=== PATIENT | male | born 1970 | race African-American/Black ===

== ENCOUNTER 2016-07-12 09:11 | Inpatient (IN) | payer OTHER ==
[~2016-07-12] VITALS: Ht 172.7 cm; Wt 78.5 kg
[2016-07-12] VITALS (13 sets, daily range): BP systolic 162–207; BP diastolic 72–88; PULSE 75–96; RESP 16–22; TEMP 97.5–99.8; O2SAT 95–99
[~2016-07-12 09:11] MED LIST: AMLO10 PO; ASPI81CH CHEW; HYDR25TA5 PO; LEVA750T PO; LIPI80TA PO; LISI-515 PO; METO25TA6 PO; OXYC1TAB63 PO; SENN1TAB PO
[2016-07-12] MEDS ORDERED: SODIUM CHLOR 0.9% 1000 ML INJ 1,000 ML IV SCH (09:35)
--- NOTE | 2016-07-12 09:42 | PD ---
HPI Chief Complaint: Abdominal Pain Time Seen by Provider: 09:35 Travel History International Travel<30 days: No Contact w/Intl Traveler<30days: No Traveled to known affect area: No History of Present Illness HPI This is a 46-year-old male who presents to the emergency department with abdominal pain on the right side, constant, severe, starting abruptly last evening, keeping him from sleeping overnight. Patient was recently hospitalized for left-sided rib pain. He had an elevated troponin to .17. He had a CTA of the chest demonstrating an ascending thoracic aortic aneurysm and at that time blood pressure control was recommended and the patient is scheduled to follow-up with Dr. Pickett as an outpatient on July 21. Patient reports that his pain is worse when he tries to use the bathroom, when he moves , and when he urinates. He denies any frequency, urgency, diarrhea, fevers or chills but does say he's had some constipation. He has had an appendectomy in the past. He denies any vomiting. PFSH Past Medical History Arthritis: No Anxiety: No Depression: No Heart Rhythm Problems: No Cancer: No Cardiovascular Problems: Yes High Cholesterol: No Chest Pain: Yes Congestive Heart Failure: No Cerebrovascular Accident: Yes (2006) Diabetes: No Diminished Hearing: No Endocrine: No Genitourinary: No Hypertension: Yes Immune Disorder: No Musculoskeletal: Yes Neurologic: No Psychiatric: No Reproductive: No Respiratory: No Thyroid Disease: No Influenza Vaccination: Yes Past Surgical History Abdominal Surgery: Yes (appendectomy) Appendectomy: Yes (1985) Cardiac Surgery: No Ear Surgery: No Endocrine Surgery: No Eye Surgery: No Genitourinary Surgery: No Gynecologic Surgery: No Oral Surgery: No Thoracic Surgery: No Other Surgery: Yes Social History Alcohol Use: Yes (QUIT YEARS AGO) Tobacco Use: No (QUIT) Substance Use: No Allergies-Medications (Allergen,Severity, Reaction): Coded Allergies: No Known Allergies (Verified , 07/12/16) Reported Meds & Prescriptions Reported Meds & Active Scripts Active Metoprolol Succinate ER 24 HR (Metoprolol Succinate) 25 Mg Tab 25 Mg PO DAILY Levaquin (Levofloxacin) 750 Mg Tab 750 Mg PO DAILY Senna Plus 8.6-50 mg (Sennosides-Docusate Sodium) 1 Tab Tab 2 Tab PO BID Oxycodone-Acetaminophen 5-325 mg Tab 1 Tab PO Q4H PRN Lipitor (Atorvastatin Calcium) 80 Mg Tab 80 Mg PO HS Lisinopril 20 Mg Tab 40 Mg PO DAILY Hydrochlorothiazide 25 Mg Tab 25 Mg PO DAILY Norvasc (Amlodipine Besylate) 10 Mg Tab 10 Mg PO DAILY Reported Aspirin 81 Mg Chew 81 Mg CHEW DAILY Review of Systems Except as stated in HPI: all other systems reviewed are Neg Physical Exam Narrative GENERAL: Uncomfortable appearing. SKIN: Warm and dry. HEAD: Atraumatic. Normocephalic. EYES: Pupils equal and round. No injection or drainage. ENT: Moist mucous membranes NECK: Trachea midline. CARDIOVASCULAR: Regular rate and rhythm. No murmur appreciated. Bounding bilateral radial and DP pulses, extremities are warm and well perfused. RESPIRATORY: Clear to auscultation. Breath sounds equal bilaterally. GASTROINTESTINAL: Abdomen soft, tender to palpation with guarding over the right upper and right lower quadrants, left upper quadrant is soft MUSCULOSKELETAL: No obvious deformities. NEUROLOGICAL: Awake and alert. No obvious cranial nerve deficits. Moving all extremities. PSYCHIATRIC: Appropriate mood and affect; insight and judgment normal. Data Data Last Documented VS Vital Signs Date Time Temp Pulse Resp B/P Pulse Ox O2 Delivery O2 Flow Rate FiO2 07/12/16 09:47 86 18 162/72 96 07/12/16 09:24 98.4 Orders Electrocardiogram (07/12/16 ) Complete Blood Count With Diff (07/12/16 09:35) Comprehensive Metabolic Panel (07/12/16 09:35) Lipase (07/12/16 09:35) Lactic Acid (07/12/16 09:35) Prothrombin Time / Inr (Pt) (07/12/16 09:35) Act Partial Throm Time (Ptt) (07/12/16 09:35) Urinalysis - C+S If Indicated (07/12/16 09:35) Iv Access Insert/Monitor (07/12/16 09:35) Ecg Monitoring (07/12/16 09:35) Oximetry (07/12/16 09:35) Sodium Chlor 0.9% 1000 Ml Inj (Ns 1000 M (07/12/16 09:35) Sodium Chloride 0.9% Flush (Ns Flush) (07/12/16 09:45) Chest, Single Ap (07/12/16 09:35) Hydromorphone Pf Inj (Dilaudid Pf Inj) (07/12/16 09:45) Ct Abd/Pel W Iv Contrast(Rout) (07/12/16 09:37) Labetalol Inj (Trandate Inj) (07/12/16 09:45) Troponin I (07/12/16 09:38) Iohexol 350 Inj (Omnipaque 350 Inj) (07/12/16 10:13) Type And Screen (07/12/16 11:09) Admit Order (Ed Use Only) (07/12/16 11:40) Cbc No Diff, Includes Plts (07/12/16 11:40) Labs Laboratory Tests Test 07/12/16 07/12/16 07/12/16 09:38 11:15 11:25 White Blood Count 10.4 TH/MM3 Red Blood Count 3.70 MIL/MM3 Hemoglobin 11.8 GM/DL Hematocrit 33.3 % Mean Corpuscular Volume 90.0 FL Mean Corpuscular Hemoglobin 31.9 PG Mean Corpuscular Hemoglobin 35.4 % Concent Red Cell Distribution Width 14.0 % Platelet Count 222 TH/MM3 Mean Platelet Volume 8.4 FL Neutrophils (%) (Auto) 77.9 % Lymphocytes (%) (Auto) 11.1 % Monocytes (%) (Auto) 9.7 % Eosinophils (%) (Auto) 0.9 % Basophils (%) (Auto) 0.4 % Neutrophils # (Auto) 8.1 TH/MM3 Lymphocytes # (Auto) 1.2 TH/MM3 Monocytes # (Auto) 1.0 TH/MM3 Eosinophils # (Auto) 0.1 TH/MM3 Basophils # (Auto) 0.0 TH/MM3 CBC Comment DIFF FINAL Differential Comment Prothrombin Time 11.3 SEC Prothromb Time International 1.0 RATIO Ratio Activated Partial 27.1 SEC Thromboplast Time Sodium Level 136 MEQ/L Potassium Level 3.8 MEQ/L Chloride Level 101 MEQ/L Carbon Dioxide Level 27.0 MEQ/L Anion Gap 8 MEQ/L Blood Urea Nitrogen 18 MG/DL Creatinine 1.27 MG/DL Estimat Glomerular Filtration 75 ML/MIN Rate Random Glucose 86 MG/DL Lactic Acid Level 1.2 mmol/L Calcium Level 9.1 MG/DL Total Bilirubin 1.0 MG/DL Aspartate Amino Transf 43 U/L (AST/SGOT) Alanine Aminotransferase 41 U/L (ALT/SGPT) Alkaline Phosphatase 84 U/L Troponin I 0.07 NG/ML Total Protein 7.8 GM/DL Albumin 3.6 GM/DL Lipase 81 U/L Blood Type A POSITIVE Antibody Screen NEGATIVE Urine Color YELLOW Urine Turbidity CLEAR Urine pH 5.5 Urine Specific [place] 1.050 Urine Protein NEG mg/dL Urine Glucose (UA) NEG mg/dL Urine Ketones TRACE mg/dL Urine Occult Blood TRACE Urine Nitrite NEG Urine Bilirubin NEG Urine Urobilinogen LESS THAN 2.0 MG/DL Urine Leukocyte Esterase NEG Urine RBC LESS THAN 1 /hpf Urine WBC LESS THAN 1 /hpf Urine Squamous Epithelial <1 /hpf Cells Urine Mucus FEW /lpf Microscopic Urinalysis Comment CULT NOT INDICATED MDM Medical Decision Making Medical Screen Exam Complete: Yes Emergency Medical Condition: Yes Interpretation(s) Afebrile, mild tachycardia, hypertensive Hemoglobin is 11.8 Electrolytes are reassuring Troponin is 0.07 Lactic acid is 1.2 Lipase is normal Urinalysis is negative for infection CT abdomen and pelvis demonstrates a rectus hematoma extending to the right mid and lower abdomen with some hemorrhage adjacent to the liver tip and in the pelvis Differential Diagnosis Pelvic hematoma, bowel obstruction, cholecystitis, pancreatitis, perforated ulcer Narrative Course This is a 46-year-old male who presents to the emergency department with abdominal pain following a cardiac catheterization several days ago. Patient was ill appearing on arrival, very uncomfortable and hypertensive. Given his history of aortic aneurysm is given a dose of IV labetalol, and an IV was established and he was placed on a monitor. His pain improved with IV Dilaudid. CT abdomen and pelvis was obtained which demonstrates a large hematoma extending from the rectus muscle likely secondary to recent catheterization. Patient's vital signs remained stable in the emergency department and he looks better after pain control. I think it's reasonable to keep the patient in the CICU for close observation. I spoke to Dr. Belle who was on-call for Dr. burgos. Patient was admitted to the resident service. Diagnosis Primary Impression: Abdominal hematoma Qualified Code: S36.92XA - Abdominal hematoma, initial encounter Admitting Information Admitting Physician Requests: Admit Re Wong MD Jul 12, 2016 09:42
[2016-07-12] MEDS ORDERED: HYDROmorphone HCL PF 1 MG/ML VIAL IVS ONE (09:45)
[2016-07-12] MEDS ORDERED: LABETALOL HCL 100 MG/20 ML VIAL IV PUSH ONE (09:45)
[2016-07-12 09:55] LABS: AUTOMATED NEUTROPHIL # 8.1 TH/MM3 (1.8-7.7); BASOPHIL % 0.4 % (0.0-2.0); EOSINOPHIL # 0.1 TH/MM3 (0-0.4); EOSINOPHIL % 0.9 % (0.0-4.0); HEMATOCRIT 33.3 % (39.0-51.0); HEMO FLAGS DIFF FINAL; LYMPH % 11.1 % (9.0-44.0); LYMPHOCYTE # 1.2 TH/MM3 (1.0-4.8); MEAN CORPUSCULAR HEMOGLOBIN 31.9 PG (27.0-34.0); MEAN CORPUSCULAR HGB CONC 35.4 % (32.0-36.0); MONO % 9.7 % (0.0-8.0); NEUT % 77.9 % (16.0-70.0); PLATELET COUNT 222 TH/MM3 (150-450); WHITE BLOOD COUNT 10.4 TH/MM3 (4.0-11.0)
--- NOTE | 2016-07-12 10:03 | RADRPT ---
EXAM DATE/TIME: 07/12/2016 09:33 [facility] COMPARISON: CHEST SINGLE AP, August 18, 2012, 9:37. INDICATIONS : Severe right upper abdomen pain. MEDICAL HISTORY : None. SURGICAL HISTORY : Appendectomy. ENCOUNTER: Initial ACUITY: 2 days PAIN SCORE: 10/10 LOCATION: Right abdomen FINDINGS: Cardiomegaly. Clear lungs. No free air beneath the diaphragm. Osseous structures are intact. CONCLUSION: No acute disease. Jimy Sotelo MD on July 12, 2016 at 10:01 Board Certified Radiologist. This report was verified electronically.
[2016-07-12 10:09] LABS: APTT (PATIENT) 27.1 SEC (24.3-30.1); PROTHROMBIN TIME - PATIENT 11.3 SEC (9.8-11.6)
[2016-07-12 10:11] LABS: ANION GAP 8 MEQ/L (5-15); AST (GOT) 43 U/L (15-37); BLOOD UREA NITROGEN 18 MG/DL (7-18); CHLORIDE 101 MEQ/L (98-107); GLOMERULAR FILTRATION RATE 75 ML/MIN (>89); POTASSIUM 3.8 MEQ/L (3.5-5.1); SODIUM (NA) 136 MEQ/L (136-145)
[2016-07-12] MEDS ORDERED: IOHEXOL 350 MG/ML 10 ML VIAL (for RAD DIAG) IV ONE (10:13)
[2016-07-12 10:14] LABS: ALKALINE PHOSPHATASE 84 U/L (45-117); ALT (GPT) 41 U/L (12-78)
--- NOTE | 2016-07-12 11:06 | RADRPT ---
EXAM DATE/TIME: 07/12/2016 10:04 [facility] COMPARISON: CT PULMONARY ANGIOGRAM, July 06, 2016, 11:27. INDICATIONS : Right abdominal pain. IV CONTRAST: 85 cc Omnipaque 350 (iohexol) IV ORAL CONTRAST: No oral contrast ingested. RADIATION DOSE: 9.96 CTDIvol (mGy) MEDICAL HISTORY : Cardiovascular disease. SURGICAL HISTORY : Appendectomy. ENCOUNTER: Initial ACUITY: 1 day PAIN SCALE: 9/10 LOCATION: Right abdomen. TECHNIQUE: Volumetric scanning of the abdomen and pelvis was performed. Using automated exposure control and ad justment of the mA and/or kV according to patient size, radiation dose was kept as low as reasonably achievable to obtain optimal diagnostic quality images. FINDINGS: There is cardiomegaly. No pleural or pericardial effusions are seen. Spleen, pancreas, bilateral adre nal glands and bilateral kidneys are normal in appearance. Liver and gallbladder are unremarkable. Th ere is asymmetric enlargement of the right rectus abdominis musculature seen best on axial image 57, and posterior to this extending over several centimeters in the right mid to lower abdomen is an ill- defined heterogeneous, but normally high density mass displacing the descending colon anteriorly and with slight mass effect on the urinary bladder. There is a small amount of perihepatic high density f luid near the tip of the liver and into the pelvis. This is felt to represent a large indistinct nic garth possibly arising off the rectus muscle. Small bowel loops are displaced medially. On axial image 38 hyperdense collection in the right midabdomen measures 6.3 x 7.5 cm AP and transverse dimension. There is a focal consolidative opacity in the right lower lobe measuring 3.2 cm. No fractures are see n. CONCLUSION: 1. Asymmetric enlargement of the right rectus abdominis musculature characteristic of rectus hematoma with heterogeneous predominantly high density masslike area in the right mid to lower abdomen most c haracteristic of acute hematoma with some free hemorrhage adjacent to the tip of the liver and in the pelvis. 2. Focal consolidation right lower lobe. Jimy Sotelo MD on July 12, 2016 at 10:58 Board Certified Radiologist. This report was verified electronically.
[2016-07-12 12:00] LABS: BLOOD, URINE TRACE (NEG); COMMENT (UR) CULT NOT INDICATED; CULTURE IF INDICATED CULT NOT INDICATED; GLUCOSE,URINE NEG (NEG); KETONE, URINE TRACE mg/dL (NEG); MUCUS URINE FEW /lpf (OCC); NITRITE,URINE NEG (NEG); PH, URINE 5.5 (5.0-8.5); SQUAMOUS EPITHELIAL CELL URINE <1 /hpf (0-5); URINE COLOR YELLOW (YELLW/STRAW)
[2016-07-12 12:01] LABS: HEMATOCRIT 29.3 % (39.0-51.0); MEAN CELL VOLUME 90.5 FL (80.0-100.0); MEAN CORPUSCULAR HEMOGLOBIN 31.6 PG (27.0-34.0); MEAN CORPUSCULAR HGB CONC 34.9 % (32.0-36.0); PLATELET COUNT 191 TH/MM3 (150-450); RED BLOOD COUNT 3.24 MIL/MM3 (4.50-5.90); RED CELL DISTRIBUTION WIDTH 14.3 % (11.6-17.2); REVIEW FLAG FINAL; WHITE BLOOD COUNT 9.2 TH/MM3 (4.0-11.0)
--- NOTE | 2016-07-12 12:36 | HHI.HP ---
[facility] Service Family Medicine Primary Care Physician Jo Sanchez MD Admission Diagnosis hematoma Diagnoses: International Travel<30 Days: No Contact w/Intl Traveler<30days: No Known Affected Area: No History of Present Illness This is a 46 year old male s/p cardiac catherization on 07/07, who presents with right sided groin pain and hematoma. For the last 2 days he has had 10 out of 10, constant, throbbing pain in his right groin at the site where he underwent catheterization on 07/07. The Percocet did not help this pain. It stays in his right groin and does not radiate. After receiving 1 mg of Dilaudid in the emergency room his pain is now currently 4 out of 10. His pain is worse when he strains to use the bathroom and when he urinates. Denies chest pain, nausea, vomiting, diarrhea, fever, chills. (Danish Villafana MD R2) Review of Systems Constitutional: DENIES: Fever, Chills Eyes: DENIES: Blurred vision, Diplopia Ears, nose, mouth, throat: DENIES: Hearing loss, Vertigo Respiratory: COMPLAINS OF: Cough, DENIES: Shortness of breath Cardiovascular: DENIES: Chest pain, Palpitations Gastrointestinal: COMPLAINS OF: Abdominal pain, DENIES: Bloody stools, Constipation, Diarrhea Genitourinary: DENIES: Hematuria, Dysuria Neurologic: DENIES: Abnormal gait, Headache Psychiatric: DENIES: Anxiety, Confusion (Danish Villafana MD R2) Past Family Social History Past Medical History HTN CVA X 2, 2006, 2012 Ascending aortic aneurysm- needs to be surgically repaired Anemia CHF HLD Past Surgical History Appendectomy 1986 Reported Medications Reported Meds & Active Scripts Active Metoprolol Succinate ER 24 HR (Metoprolol Succinate) 25 Mg Tab 25 Mg PO DAILY Levaquin (Levofloxacin) 750 Mg Tab 750 Mg PO DAILY Senna Plus 8.6-50 mg (Sennosides-Docusate Sodium) 1 Tab Tab 2 Tab PO BID Oxycodone-Acetaminophen 5-325 mg Tab 1 Tab PO Q4H PRN Lipitor (Atorvastatin Calcium) 80 Mg Tab 80 Mg PO HS Lisinopril 20 Mg Tab 40 Mg PO DAILY Hydrochlorothiazide 25 Mg Tab 25 Mg PO DAILY Norvasc (Amlodipine Besylate) 10 Mg Tab 10 Mg PO DAILY Reported Aspirin 81 Mg Chew 81 Mg CHEW DAILY (Dainsh Villafana MD R2) Allergies: Coded Allergies: No Known Allergies (Verified , 07/12/16) Active Ordered Medications Active Medications Hydromorphone HCl (Dilaudid Pf Inj) 1 mg ONCE ONCE IVS Last administered on 07/12 09:45; Admin Dose 1 MG; Start 07/12/16 at 09:45; Stop 07/12/16 at 09:46; Status DC Iohexol (Omnipaque 350 Inj) 85 ml STK-MED ONCE IV Last administered on 07/12/16 10:13; Admin Dose 85 ML; Start 07/12/16 at 10:13; Stop 07/12/16 at 10:14; Status DC IV Flush (NS Flush) 2 ml UNSCH PRN IVF; Start 07/12/16 at 09:45 Labetalol HCl (Trandate Inj) 20 mg ONCE ONCE IV PUSH Last administered on 09:46; Admin Dose 20 MG; Start 07/12/16 at 09:45; Stop 07/12/16 at 09:46; Status DC Sodium Chloride (NS 1000 ml Inj) 1,000 ml @ 1,000 mls/hr Q1H IV Last administered on 07/12/16 09:45; Admin Dose 1,000 MLS/HR; Start 07/12/16 at 09:35 ; Stop 07/12/16 at 10:34; Status DC Family History Father 67 w/ HTN Mother 63 w/ HTN Social History Lives in [facility]. 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 Quit smoking cigarettes around 1 year ago, hx of 25 pack years. Alcohol: Socially illicits: Denies (Danish Villafana MD R2) Physical Exam Vital Signs Vital Signs Date Time Temp Pulse Resp B/P Pulse Ox O2 Delivery O2 Flow Rate FiO2 07/12/16 09:47 86 18 162/72 96 07/12/16 09:24 98.4 96 18 185/88 95 07/12/16 09:12 97.5 96 16 207/82 99 Physical Exam GENERAL: This is a well-nourished, well-developed patient, appears uncomfortable SKIN: No rashes, ecchymoses or lesions. Cool and dry. HEAD: Atraumatic. Normocephalic. No temporal or scalp tenderness. EYES: Pupils equal round and reactive. Extraocular motions intact. No scleral icterus. No injection or drainage. ENT: Nose without bleeding, purulent drainage or septal hematoma. Throat without erythema, tonsillar hypertrophy or exudate. Uvula midline. Airway patent. NECK: Trachea midline. No JVD or lymphadenopathy. Supple, nontender, no meningeal signs. CARDIOVASCULAR: Regular rate, 2/6 systolic ejection murmur. RESPIRATORY: Clear to auscultation. Breath sounds equal bilaterally. No wheezes , rales, or rhonchi. GASTROINTESTINAL: Positive bowel sounds. Soft, nondistended. Tender to palpation in right lower abdomen/ groin. No rebound or guarding MUSCULOSKELETAL: Extremities without clubbing, cyanosis, or edema. No joint tenderness, effusion, or edema noted. No calf tenderness. Negative Homans sign bilaterally. NEUROLOGICAL: Awake and alert. Cranial nerves II through XII intact. Motor and sensory grossly within normal limits. Five out of 5 muscle strength in all muscle groups. Normal speech. Laboratory Laboratory Tests Test 07/12/16 07/12/16 07/12/16 07/12/16 09:38 11:15 11:25 11:50 White Blood Count 10.4 9.2 Red Blood Count 3.70 3.24 Hemoglobin 11.8 10.2 Hematocrit 33.3 29.3 Mean Corpuscular Volume 90.0 90.5 Mean Corpuscular Hemoglobin 31.9 31.6 Mean Corpuscular Hemoglobin 35.4 34.9 Concent Red Cell Distribution Width 14.0 14.3 Platelet Count 222 191 Mean Platelet Volume 8.4 8.4 Neutrophils (%) (Auto) 77.9 Lymphocytes (%) (Auto) 11.1 Monocytes (%) (Auto) 9.7 Eosinophils (%) (Auto) 0.9 Basophils (%) (Auto) 0.4 Neutrophils # (Auto) 8.1 Lymphocytes # (Auto) 1.2 Monocytes # (Auto) 1.0 Eosinophils # (Auto) 0.1 Basophils # (Auto) 0.0 CBC Comment DIFF FINAL Differential Comment Prothrombin Time 11.3 Prothromb Time International 1.0 Ratio Activated Partial 27.1 Thromboplast Time Sodium Level 136 Potassium Level 3.8 Chloride Level 101 Carbon Dioxide Level 27.0 Anion Gap 8 Blood Urea Nitrogen 18 Creatinine 1.27 Estimat Glomerular Filtration 75 Rate Random Glucose 86 Lactic Acid Level 1.2 Calcium Level 9.1 Total Bilirubin 1.0 Aspartate Amino Transf 43 (AST/SGOT) Alanine Aminotransferase 41 (ALT/SGPT) Alkaline Phosphatase 84 Troponin I 0.07 Total Protein 7.8 Albumin 3.6 Lipase 81 Blood Type A POSITIVE Antibody Screen NEGATIVE Urine Color YELLOW Urine Turbidity CLEAR Urine pH 5.5 Urine Specific [place] 1.050 Urine Protein NEG Urine Glucose (UA) NEG Urine Ketones TRACE Urine Occult Blood TRACE Urine Nitrite NEG Urine Bilirubin NEG Urine Urobilinogen LESS THAN 2.0 Urine Leukocyte Esterase NEG Urine RBC LESS THAN 1 Urine WBC LESS THAN 1 Urine Squamous Epithelial <1 Cells Urine Mucus FEW Microscopic Urinalysis Comment CULT NOT INDICATED (Danish Villafana MD R2) Result Diagram: 07/12/16 1150 07/12/16 0938 Imaging Chest x-ray-no acute disease CT abdomen and pelvis with IV contrast-1.) asymmetric enlargement of the right rectus abdominis musculature characteristic of a rectus hematoma with heterogenous predominantly high density masslike area in the right mid to lower abdomen most characteristic of acute hematoma with some free hemorrhage adjacent to the tip of the liver and in the pelvis. 2.) Focal consolidation right lower lobe (Danish Villafana MD R2) Assessment and Plan Assessment and Plan 46-year-old male status post cardiac catheterization on 07/07 presents with right groin hematoma and hypertensive urgency. Incidentally, he also has a pneumonia and a ascending aortic aneurysm. The ER spoke with Dr. Belle ( repairer) for an elevation in troponin. Hematocrit for pain control, blood pressure control, cardiac consult. Code Status Full Discussed Condition With Dr. Broderick Spain (Danish Villafana MD R2) Attending Attestation Patient seen and examined. Case reviewed and discussed with the resident team. Agree with plan of care as discussed with me and documented in the resident note. (Elizabeth Villafana MD) Problem List: (1) Hematoma Status: Acute Plan: Patient presents with intractable pain because of a hematoma likely created after his catheterization on 07/07 -Trend H&H as below -Pain management: Morphine 2 mg IV every 2 hours when necessary pain 6-10; Percocet 1 tab by mouth every 4 hours when necessary pain 1-5 (2) Ascending aortic aneurysm Status: Chronic Plan: Ascending aortic aneurysm noted on cardiac catheterization and on CTA on 07/06, AP diameter measures 5.6 cm. -Cardiothoracic surgery consulted on previous admission. Patient will need surgical repair, coordination to be completed as outpatient. Patient to have outpatient follow up appointment with Dr. Mimi Pickett July 21. -Patient was informed of need for strict blood pressure control. -RPR negative (3) Anemia Status: Acute Plan: Hg 11.8 on admission and trended to 10.2 after IV fluids. -Obtain H&H at 1900 -Daily CBC (4) CHF (congestive heart failure) Status: Acute Plan: Echocardiogram on 07/07 shows ejection fraction of 35-40%, diffuse hypokinesis. -Continue home lisinopril 40 mg daily (5) Hypertension Status: Acute Plan: Patient presented in hypertensive urgency with blood pressure 207/82 - Patient was given labetalol 20 mg IV in the emergency room. - Because of patient's aortic aneurysm, will continue IV labetalol 10 mg IV every 4 hours when necessary systolic blood pressure greater than 160 - Continue patient's home Lisinopril 40 mg daily and HCTZ 25 mg daily, Norvasc 10mg daily. (6) PNA (pneumonia) Status: Acute Plan: Patient was being treated for PNA on presentation with levaquin [address] performed in the ER confirms a right lower lobe consolidation. -Continue levaquin 750 mg PO daily (7) Elevated troponin Status: Acute Plan: Troponin elevated at 0.07; ER spoke with Dr. Belle, who is production tech for Dr. Shell Consult Cardiology Will perform ACS rule out Trend troponins q6 hours Serial EKGs (8) FEN/PPX Status: Acute Plan: Fluids: Normal saline at 130 ml/hr Electrolytes: Monitor and replace when necessary Nutrition: Heart healthy diet Prophylaxis: Bilateral SCDs (Danish Villafana MD R2) Physician Certification 2 Midnight Certification Type: Admission for Inpatient Services Order for Inpatient Services The services are ordered in accordance with Medicare regulations or non- Medicare payer requirements, as applicable. In the case of services not specified as inpatient-only, they are appropriately provided as inpatient services in accordance with the 2-midnight benchmark. Estimated LOS (days): 2 days is the estimated time the patient will need to remain in the hospital, assuming treatment plan goals are met and no additional complications. Post-Hospital Plan: Not yet determined (Danish Villafana MD R2) Problem Qualifiers (1) Anemia: Qualified Code: D64.9 - Anemia, unspecified type (2) PNA (pneumonia): Qualified Code: J18.1 - Pneumonia of right lower lobe due to infectious organism Danish Villafana MD R2 Jul 12, 2016 12:36 Elizabeth Villafana MD Jul 13, 2016 10:13
[2016-07-12] MEDS ORDERED: MORPHINE SULFATE 4 MG/ML INJ IV PUSH PRN (13:15)
[2016-07-12] MEDS ORDERED: ONDANSETRON HCL 4 MG/2 ML VIAL IV PRN (13:15)
[2016-07-12] MEDS ORDERED: DOCUSATE SODIUM 50 MG/SENNA 8.6 MG TAB PO PRN (13:15)
--- NOTE | 2016-07-12 13:27 | HHI.FPPN ---
Subjective Remarks Pt. seen, examined and discussed with Drs. Spain and Broderick. This is a 46 yo AA male who was admitted last Tuesday and discharged on Tuesday , dx with pneumonia and aortic aneurysm on catheterization. Is scheduled to follow-up with [facility] and CV surgery as OP on 07-21-16. Since discharge, he has had pain in the right groin and right lower abdomen following his catheterization; initially it was controlled with Percocet but yesterday and today his pain was 10:10 in right groin and lower abdomen, worse when he voids or has a BM. The pain is constant, throbbing. Now it is 4:10. He has been unable to sleep because of the pain. See H&P for this admission for additional past, family and social history. Complete review of systems was obtained and other than his pain in the right groin and right lower abdomen and a cough from his pneumonia, and the pain with foid and stooling in the right groin, all other systems were reviewed and were negative. He quit smoking 2 months and 2 days ago. Objective Vitals Vital Signs Date Time Temp Pulse Resp B/P Pulse Ox O2 Delivery O2 Flow Rate FiO2 07/12/16 09:47 86 18 162/72 96 07/12/16 09:24 98.4 96 18 185/88 95 07/12/16 09:12 97.5 96 16 207/82 99 Result Diagram: 07/12/16 1150 07/12/16 0938 Other Results Laboratory Tests Test 07/12/16 07/12/16 07/12/16 07/12/16 09:38 11:15 11:25 11:50 White Blood Count 10.4 TH/MM3 9.2 TH/MM3 Red Blood Count 3.70 MIL/MM3 3.24 MIL/MM3 Hemoglobin 11.8 GM/DL 10.2 GM/DL Hematocrit 33.3 % 29.3 % Mean Corpuscular Volume 90.0 FL 90.5 FL Mean Corpuscular Hemoglobin 31.9 PG 31.6 PG Mean Corpuscular Hemoglobin 35.4 % 34.9 % Concent Red Cell Distribution Width 14.0 % 14.3 % Platelet Count 222 TH/MM3 191 TH/MM3 Mean Platelet Volume 8.4 FL 8.4 FL Neutrophils (%) (Auto) 77.9 % Lymphocytes (%) (Auto) 11.1 % Monocytes (%) (Auto) 9.7 % Eosinophils (%) (Auto) 0.9 % Basophils (%) (Auto) 0.4 % Neutrophils # (Auto) 8.1 TH/MM3 Lymphocytes # (Auto) 1.2 TH/MM3 Monocytes # (Auto) 1.0 TH/MM3 Eosinophils # (Auto) 0.1 TH/MM3 Basophils # (Auto) 0.0 TH/MM3 CBC Comment DIFF FINAL Differential Comment Prothrombin Time 11.3 SEC Prothromb Time International 1.0 RATIO Ratio Activated Partial 27.1 SEC Thromboplast Time Sodium Level 136 MEQ/L Potassium Level 3.8 MEQ/L Chloride Level 101 MEQ/L Carbon Dioxide Level 27.0 MEQ/L Anion Gap 8 MEQ/L Blood Urea Nitrogen 18 MG/DL Creatinine 1.27 MG/DL Estimat Glomerular Filtration 75 ML/MIN Rate Random Glucose 86 MG/DL Lactic Acid Level 1.2 mmol/L Calcium Level 9.1 MG/DL Total Bilirubin 1.0 MG/DL Aspartate Amino Transf 43 U/L (AST/SGOT) Alanine Aminotransferase 41 U/L (ALT/SGPT) Alkaline Phosphatase 84 U/L Troponin I 0.07 NG/ML Total Protein 7.8 GM/DL Albumin 3.6 GM/DL Lipase 81 U/L Blood Type A POSITIVE Antibody Screen NEGATIVE Urine Color YELLOW Urine Turbidity CLEAR Urine pH 5.5 Urine Specific [place] 1.050 Urine Protein NEG mg/dL Urine Glucose (UA) NEG mg/dL Urine Ketones TRACE mg/dL Urine Occult Blood TRACE Urine Nitrite NEG Urine Bilirubin NEG Urine Urobilinogen LESS THAN 2.0 MG/DL Urine Leukocyte Esterase NEG Urine RBC LESS THAN 1 /hpf Urine WBC LESS THAN 1 /hpf Urine Squamous Epithelial <1 /hpf Cells Urine Mucus FEW /lpf Microscopic Urinalysis Comment CULT NOT INDICATED Imaging CT abdomen/pelvis shows apparent right rectus abdominus hematoma from right mid - to lower abdomen. Consolidation RLL. Objective Remarks O. CONSTITUTIONAL/GEN: normally nourished, in severe distress with pain in the right groin and lower abdomen. EYES: conjunctiva normal, PERRLA, EOMI. ENT: Mouth and pharynx normal. MM moist. NECK: thyroid midline, carotids symmetrical. LUNGS: clear A-P, respiratory effort is normal. CARDIOVASCULAR: RR 3:6 murmur best in aortic and pulmonic areas. No significant edema. GI/ABD: soft without masses, without organomegaly. Very tender right mid and lower abdomen with guarding to palpation. BS + NEURO: No focal deficits. SKIN: color normal, no rashes noted. No ecchymosis seen in right groin, tender in right groin. HEME/LYMPH: no bruising, petechia or significant adenopathy MUSC: Extremities are normal in appearance with scarring dorsum left foot. PSYCH/MENTAL STATUS: Alert and oriented x 3. A/P Assessment and Plan This is a 46-year-old male who presents to the emergency department with abdominal pain following a cardiac catheterization several days ago. Patient was ill appearing on arrival, very uncomfortable and hypertensive. Given his history of aortic aneurysm is given a dose of IV labetalol, and an IV was established and he was placed on a monitor. His pain improved with IV Dilaudid. CT abdomen and pelvis was obtained which demonstrates a large hematoma extending from the rectus muscle likely secondary to recent catheterization. Patient's vital signs remained stable in the emergency department and he looks better after pain control. I think it's reasonable to keep the patient in the CICU for close observation. I spoke to Dr. Belle who was on-call for Dr. burgos. Patient was admitted to the resident service. Attending Attestation Patient seen and examined. Case reviewed and discussed with the resident team. Agree with plan of care as discussed with me and documented in the resident note. Elizabeth Villafana MD Jul 12, 2016 13:27
[2016-07-12] MEDS: oxyCODONE/ACETAMINOPHEN 5 MG/325 MG TAB PO PRN ×2 (15:50→19:37)
[2016-07-12] MEDS: LABETALOL HCL 100 MG/20 ML VIAL IV PUSH PRN (15:53)
--- NOTE | 2016-07-12 17:53 | EKG ---
Date Performed: 07/12/2016 Time Performed: 09:36:05 PTAGE: 46 years EKG: Sinus rhythm POSSIBLE LEFT ATRIAL ENLARGEMENT MARKED LEFT AXIS DEVIATION LEFT VENTRICULAR HYPERTROPHY AND ST-T CH RYLEY Since previous tracing, no significant change noted ABNORMAL ECG PREVIOUS TRACING : 07/06/2016 21.51 DOCTOR: Ayla Morris Interpretating Date/Time 07/12/2016 17:51:34
[2016-07-12] MEDS: SODIUM CHLOR 0.9% 1000 ML INJ 1,000 ML IV SCH (18:17)
[2016-07-12 20:54] LABS: HEMATOCRIT 29.3 % (39.0-51.0); REVIEW FLAG FINAL
[2016-07-12] MEDS: ATORVASTATIN 80 MG TAB PO SCH (21:02)
[2016-07-13] VITALS (22 sets, daily range): BP systolic 150–173; BP diastolic 78–87; PULSE 72–99; RESP 18–20; TEMP 98–99.7; O2SAT 96–98
[2016-07-13] MEDS: SODIUM CHLOR 0.9% 1000 ML INJ 1,000 ML IV SCH ×3 (01:44→16:22)
[2016-07-13] MEDS: LABETALOL HCL 100 MG/20 ML VIAL IV PUSH PRN (03:35)
[2016-07-13] MEDS: oxyCODONE/ACETAMINOPHEN 5 MG/325 MG TAB PO PRN ×2 (03:41→08:46)
[2016-07-13 06:55] LABS: AUTOMATED NEUTROPHIL # 9.6 TH/MM3 (1.8-7.7); BASOPHIL % 0.3 % (0.0-2.0); HEMATOCRIT 29.8 % (39.0-51.0); HEMO FLAGS DIFF FINAL; LYMPH % 6.5 % (9.0-44.0); LYMPHOCYTE # 0.8 TH/MM3 (1.0-4.8); MEAN CELL VOLUME 91.4 FL (80.0-100.0); MEAN CORPUSCULAR HEMOGLOBIN 31.1 PG (27.0-34.0); MEAN CORPUSCULAR HGB CONC 34.1 % (32.0-36.0); MONO % 10.4 % (0.0-8.0); NEUT % 82.8 % (16.0-70.0); PLATELET COUNT 212 TH/MM3 (150-450); RED BLOOD COUNT 3.26 MIL/MM3 (4.50-5.90); RED CELL DISTRIBUTION WIDTH 14.5 % (11.6-17.2); WHITE BLOOD COUNT 11.6 TH/MM3 (4.0-11.0)
[2016-07-13 07:29] LABS: ALT (GPT) 28 U/L (12-78); ANION GAP 10 MEQ/L (5-15); AST (GOT) 25 U/L (15-37); BLOOD UREA NITROGEN 15 MG/DL (7-18); CHLORIDE 106 MEQ/L (98-107); GLOMERULAR FILTRATION RATE 91 ML/MIN (>89); POTASSIUM 3.5 MEQ/L (3.5-5.1); SODIUM (NA) 140 MEQ/L (136-145)
[2016-07-13 07:30] LABS: ALKALINE PHOSPHATASE 61 U/L (45-117)
[2016-07-13] MEDS: HYDROCHLOROTHIAZIDE 25 MG TAB PO SCH (08:46)
[2016-07-13] MEDS: LISINOPRIL 20 MG TAB PO SCH (08:46)
[2016-07-13] MEDS: LEVOFLOXACIN 750 MG TAB PO SCH (08:46)
--- NOTE | 2016-07-13 12:46 | HHI.FPPN ---
Subjective Remarks No acute events overnight. Except for some hypertension with a blood pressure in the 160s over 80s, afebrile vital signs stable. Patient continues to report right inguinal and right lower quadrant abdominal pain with coughing. Patient reports that he still does not have an appetite. He also reports that he has not been out of bed. (Murray Spain MD R1) Objective Vitals Vital Signs Date Time Temp Pulse Resp B/P Pulse Ox O2 Delivery O2 Flow Rate FiO2 07/13/16 12:15 81 07/13/16 11:49 83 07/13/16 11:49 98.9 80 20 150/78 96 07/13/16 10:13 84 07/13/16 09:51 18 07/13/16 09:00 83 07/13/16 08:45 82 07/13/16 08:45 99.7 81 18 173/87 97 07/13/16 05:05 72 07/13/16 04:00 84 07/13/16 04:00 98.9 74 20 164/84 97 07/13/16 03:13 84 07/13/16 02:00 87 07/13/16 01:00 85 07/13/16 00:00 98.9 85 20 167/83 97 07/13/16 00:00 79 07/12/16 23:12 79 07/12/16 22:00 78 07/12/16 21:00 85 07/12/16 20:00 98.9 80 20 164/82 97 07/12/16 20:00 85 07/12/16 19:00 80 07/12/16 18:06 85 07/12/16 17:52 80 07/12/16 16:13 75 07/12/16 15:00 82 07/12/16 15:00 99.8 82 22 178/86 99 07/12/16 14:24 87 18 188/85 99 I/O 07/12/16 07/12/16 07/12/16 07/13/16 07/13/16 07/13/16 07:00 15:00 23:00 07:00 15:00 23:00 Intake Total 240 ml 1850 ml Output Total 450 ml 400 ml Balance -210 ml 1450 ml Intake Oral 240 ml 420 ml IV Total 1430 ml Output Urine Total 450 ml 400 ml # Bowel Movements 0 0 (Murray Spain MD R1) Result Diagram: 07/13/16 0534 07/13/16 0534 Imaging Last Impressions Abdomen/Pelvis CT 07/12/16 0937 Signed Impressions: Service Date/Time: Tuesday, July 12, 2016 10:04 - CONCLUSION: 1. Asymmetric enlargement of the right rectus abdominis musculature characteristic of rectus hematoma with heterogeneous predominantly high density masslike area in the right mid to lower abdomen most characteristic of acute hematoma with some free hemorrhage adjacent to the tip of the liver and in the pelvis. 2. Focal consolidation right lower lobe. Jimy Sotelo MD Chest X-Ray 07/12/16 0935 Signed Impressions: Service Date/Time: Tuesday, July 12, 2016 09:33 - CONCLUSION: No acute disease. Jimy Sotelo MD Objective Remarks O. CONSTITUTIONAL/GEN: normally nourished, patient lying in bed with eyes closed EYES: conjunctiva normal, PERRLA, EOMI. ENT: MM moist. NECK: thyroid midline, carotids symmetrical. LUNGS: Clear to auscultation bilaterally, respiratory effort is normal. CARDIOVASCULAR: RR and 3:6 murmur best in aortic and pulmonic areas. No significant edema. GI/ABD: soft without masses, without organomegaly. Very tender right mid and lower abdomen with guarding to palpation. BS + NEURO: No focal deficits. SKIN: color normal, no rashes noted. No ecchymosis seen in right groin, tender in right groin. HEME/LYMPH: no bruising, petechia or significant adenopathy MUSC: Extremities are normal in appearance with scarring of dorsum left foot. PSYCH/MENTAL STATUS: Alert and oriented x 3. (Murray Spain MD R1) A/P Assessment and Plan 46-year-old male status post cardiac catheterization on 07/07 presents with right groin hematoma and hypertensive urgency. Incidentally, he also has a pneumonia and an ascending aortic aneurysm. The ER spoke with Dr. Belle ( activities leader) for an elevation in troponin. He is admitted for pain control, blood pressure control, cardiac consult. (Murray Spain MD R1) Attending Attestation Patient seen and examined. Case reviewed and discussed with the resident team. Agree with plan of care as discussed with me and documented in the resident note. (Elizabeth Villafana MD) Problem List: (1) Hematoma Status: Acute Plan: Patient presents with intractable pain because of a hematoma likely created after his catheterization on 07/07 -Trend H&H as below -Pain management: Morphine 2 mg IV every 2 hours when necessary pain 6-10; Percocet 1 tab by mouth every 4 hours when necessary pain 1-5 -Latrice-Colace 2 tab by mouth daily at bedtime (2) Ascending aortic aneurysm Status: Chronic Plan: Ascending aortic aneurysm noted on cardiac catheterization and on CTA on 07/06, AP diameter measures 5.6 cm. -Cardiothoracic surgery consulted on previous admission. Patient will need surgical repair, coordination to be completed as outpatient. Patient to have outpatient follow up appointment with Dr. Mimi Pickett July 21. -Patient was informed of need for strict blood pressure control. Attempted to contact Dr. Pickett regarding goal blood pressure. -RPR negative (3) Anemia Status: Acute Plan: Hg 11.8 on admission and trended to 10.2 after IV fluids. -Daily CBC (4) CHF (congestive heart failure) Status: Acute Plan: Echocardiogram on 07/07 shows ejection fraction of 35-40%, diffuse hypokinesis. -Continue home lisinopril 40 mg daily (5) Hypertension Status: Acute Plan: Patient presented in hypertensive urgency with blood pressure 207/82 - Patient was given labetalol 20 mg IV in the emergency room. - Because of patient's aortic aneurysm, will continue IV labetalol 10 mg IV every 4 hours when necessary systolic blood pressure greater than 160, added PRN medications Vasotec and hydralazine. - Continue patient's home Lisinopril 40 mg daily and HCTZ 25 mg daily, Norvasc 10mg daily. (6) PNA (pneumonia) Status: Acute Plan: Patient was being treated for PNA on presentation with levaquin [address] performed in the ER confirms a right lower lobe consolidation. -Continue levaquin 750 mg PO daily (7) Elevated troponin Status: Acute Plan: Consult Cardiology ACS rule out negative with troponin and EKG stable 3 (8) FEN/PPX Status: Acute Plan: Fluids: Normal saline at 130 ml/hr Electrolytes: Monitor and replace when necessary Nutrition: Heart healthy diet Prophylaxis: Bilateral SCDs (Mruray Spain MD R1) Problem Qualifiers (1) Anemia: Qualified Code: D64.9 - Anemia, unspecified type (2) PNA (pneumonia): Qualified Code: J18.1 - Pneumonia of right lower lobe due to infectious organism Murray Spain MD R1 Jul 13, 2016 12:45 Elizabeth Villafana MD Jul 13, 2016 20:18
[2016-07-13] MEDS ORDERED: DOCUSATE SODIUM 50 MG/SENNA 8.6 MG TAB PO PRN (14:00)
[2016-07-13] MEDS ORDERED: hydrALAZINE HCL 20 MG/ML VIAL IV PRN (15:45)
[2016-07-13] MEDS ORDERED: ENALAPRILAT 1.25 MG/ML VIAL IV PRN (15:45)
[2016-07-13] MEDS: METOPROLOL TARTRATE 25 MG TAB PO SCH ×2 (16:21→21:41)
[2016-07-13] MEDS: DOCUSATE SODIUM 50 MG/SENNA 8.6 MG TAB PO SCH (21:00)
[2016-07-13] MEDS: ATORVASTATIN 80 MG TAB PO SCH (21:41)
--- NOTE | 2016-07-13 23:48 | EKG ---
Date Performed: 07/12/2016 Time Performed: 22:09:02 PTAGE: 46 years EKG: Sinus rhythm Leftward axis Left ventricular hypertrophy Lateral ST-T changes may be due to hypertrophy and/or isc hemia Abnormal ECG PREVIOUS TRACING : 07/12/2016 09.36 DOCTOR: Serina Miguel Interpretating Date/Time 07/13/2016 23:42:38
[2016-07-14] VITALS (24 sets, daily range): BP systolic 106–161; BP diastolic 53–79; PULSE 71–96; RESP 18–20; TEMP 97.3–98.9; O2SAT 94–100
[2016-07-14] MEDS: SODIUM CHLOR 0.9% 1000 ML INJ 1,000 ML IV SCH ×4 (00:50→23:56)
[2016-07-14] MEDS: METOPROLOL TARTRATE 25 MG TAB PO SCH (06:12)
[2016-07-14] MEDS: oxyCODONE/ACETAMINOPHEN 5 MG/325 MG TAB PO PRN ×3 (06:14→20:38)
--- NOTE | 2016-07-14 08:23 | HHI.FPPN ---
Subjective Remarks No acute events overnight. Except for some mild hypertension with blood pressure ranging from 140s to 160s systolic, afebrile and vital signs stable. Patient continues to complain of the same pain at the same location, with decreased intensity at rest, but exacerbated by coughing or sneezing or moving. Discussed with patient that we'll be increasing his blood pressure medications. (Murray Spain MD R1) Objective Vitals Vital Signs Date Time Temp Pulse Resp B/P Pulse Ox O2 Delivery O2 Flow Rate FiO2 07/14/16 06:00 80 07/14/16 05:00 81 07/14/16 04:00 98.9 82 18 154/79 97 07/14/16 04:00 80 07/14/16 03:11 82 07/14/16 02:00 82 07/14/16 01:00 82 07/14/16 00:00 79 07/14/16 00:00 98.9 74 20 161/79 97 07/13/16 23:00 76 07/13/16 22:00 89 07/13/16 21:00 87 07/13/16 20:00 87 07/13/16 20:00 98.0 87 20 170/86 98 07/13/16 19:00 91 07/13/16 18:10 95 07/13/16 17:03 98 07/13/16 16:07 99 07/13/16 15:07 90 07/13/16 15:07 98.6 90 20 167/86 98 07/13/16 14:26 89 07/13/16 13:03 83 07/13/16 12:15 81 07/13/16 11:49 83 07/13/16 11:49 98.9 80 20 150/78 96 07/13/16 10:13 84 07/13/16 09:51 18 07/13/16 09:00 83 07/13/16 08:45 82 07/13/16 08:45 99.7 81 18 173/87 97 I/O 07/13/16 07/13/16 07/13/16 07/14/16 07/14/16 07/14/16 07:00 15:00 23:00 07:00 15:00 23:00 Intake Total 1850 ml 1940 ml 2710 ml Output Total 400 ml 900 ml 900 ml Balance 1450 ml 1040 ml 1810 ml Intake Oral 420 ml 480 ml 1080 ml IV Total 1430 ml 1460 ml 1630 ml Output Urine Total 400 ml 900 ml 900 ml # Bowel Movements 0 1 3 (Murray Spain MD R1) Result Diagram: 07/13/16 0534 07/13/16 0534 Imaging Last Impressions Abdomen/Pelvis CT 07/12/16 0937 Signed Impressions: Service Date/Time: Tuesday, July 12, 2016 10:04 - CONCLUSION: 1. Asymmetric enlargement of the right rectus abdominis musculature characteristic of rectus hematoma with heterogeneous predominantly high density masslike area in the right mid to lower abdomen most characteristic of acute hematoma with some free hemorrhage adjacent to the tip of the liver and in the pelvis. 2. Focal consolidation right lower lobe. Jimy Sotelo MD Chest X-Ray 07/12/16 0935 Signed Impressions: Service Date/Time: Tuesday, July 12, 2016 09:33 - CONCLUSION: No acute disease. Jimy Sotelo MD Objective Remarks O. CONSTITUTIONAL/GEN: normally nourished, patient lying in bed in no acute distress EYES: conjunctiva normal, PERRLA, EOMI. ENT: MM moist. NECK: thyroid midline, carotids symmetrical. LUNGS: Decreased breath sounds at the right lung base, respiratory effort is normal. CARDIOVASCULAR: RRR with iii/vi murmur best in aortic and pulmonic areas. No significant edema. GI/ABD: soft without masses, without organomegaly. Very tender right mid and lower abdomen with guarding to palpation. BS + NEURO: No focal deficits. SKIN: color normal, no rashes noted. No ecchymosis seen in right groin, tender in right groin. HEME/LYMPH: no bruising, petechia or significant adenopathy MUSC: Extremities are normal in appearance with scarring of dorsum left foot. PSYCH/MENTAL STATUS: Alert and oriented x 3. (Murray Spain MD R1) A/P Assessment and Plan 46-year-old male status post cardiac catheterization on 07/07 presents with right groin hematoma and hypertensive urgency. Incidentally, he also has a pneumonia and an ascending aortic aneurysm. He is admitted for pain control, blood pressure control, cardiac consult. Per Dr. Pickett, goal blood pressure is 130. Discharge Planning Plan to discharge pending pain control and blood pressure control and pending cardiology recommendations (Murray Spain MD R1) Attending Attestation Patient seen and examined. Case reviewed and discussed with the resident team. Agree with plan of care as discussed with me and documented in the resident note. (Elizabeth Vlilafana MD) Problem List: (1) Hematoma Status: Acute Plan: Patient presents with intractable pain because of a hematoma likely created after his catheterization on 07/07 -Trend H&H as below -Pain management: Morphine 2 mg IV every 2 hours when necessary pain 6-10; Percocet 1 tab by mouth every 4 hours when necessary pain 1-5 -Latrice-Colace 2 tab by mouth daily at bedtime -Cardiology consult recommends tincture of time (2) Ascending aortic aneurysm Status: Chronic Plan: Ascending aortic aneurysm noted on cardiac catheterization and on CTA on 07/06, AP diameter measures 5.6 cm. -Cardiothoracic surgery consulted on previous admission. Patient will need surgical repair, coordination to be completed as outpatient. Patient to have outpatient follow up appointment with Dr. Mimi Pickett July 21. -Patient was informed of need for strict blood pressure control. Dr. Pickett recommended goal blood pressure of 130. -RPR negative (3) Anemia Status: Acute Plan: Hemoglobin remained stable. -Daily CBC (4) Hypertension Status: Acute Plan: Patient presented in hypertensive urgency with blood pressure 207/82 - Continue patient's home Lisinopril 40 mg daily and HCTZ 25 mg daily, Norvasc 10mg daily. - Increased metoprolol from 25 mg by mouth every 8 hours to 50 mg by mouth every 8 hours; will continue to titrate as necessary to reach blood pressure goal of 130 (5) CHF (congestive heart failure) Status: Acute Plan: Echocardiogram on 07/07 shows ejection fraction of 35-40%, diffuse hypokinesis. -Continue home lisinopril 40 mg daily (6) PNA (pneumonia) Status: Acute Plan: Patient was being treated for PNA on presentation with levaquin [address] performed in the ER confirms a right lower lobe consolidation. -Continue levaquin 750 mg PO daily (7) Elevated troponin Status: Acute Plan: Cardiology not concerned about elevated troponin, likely due to previous event, trending down ACS rule out negative with troponin and EKG stable 3 (8) FEN/PPX Status: Acute Plan: Fluids: Normal saline at 130 ml/hr Electrolytes: Monitor and replace when necessary Nutrition: Heart healthy diet Prophylaxis: Bilateral SCDs (Murray Spain MD R1) Problem Qualifiers (1) Anemia: Qualified Code: D64.9 - Anemia, unspecified type (2) PNA (pneumonia): Qualified Code: J18.1 - Pneumonia of right lower lobe due to infectious organism Murray Spain MD R1 Jul 14, 2016 08:22 Elizabeth Villafana MD Jul 14, 2016 14:43
[2016-07-14] MEDS: LEVOFLOXACIN 750 MG TAB PO SCH (08:45)
[2016-07-14] MEDS: LISINOPRIL 20 MG TAB PO SCH (08:45)
[2016-07-14] MEDS: HYDROCHLOROTHIAZIDE 25 MG TAB PO SCH (08:45)
[2016-07-14 09:07] LABS: HEMATOCRIT 31.7 % (39.0-51.0); MEAN CELL VOLUME 91.7 FL (80.0-100.0); MEAN CORPUSCULAR HEMOGLOBIN 30.4 PG (27.0-34.0); MEAN CORPUSCULAR HGB CONC 33.2 % (32.0-36.0); PLATELET COUNT 246 TH/MM3 (150-450); RED BLOOD COUNT 3.46 MIL/MM3 (4.50-5.90); RED CELL DISTRIBUTION WIDTH 14.5 % (11.6-17.2); REVIEW FLAG FINAL; WHITE BLOOD COUNT 15.2 TH/MM3 (4.0-11.0)
--- NOTE | 2016-07-14 12:24 | MB ---
cc: KAVON HANEY MD DATE OF CONSULTATION: 07/14/2016 HISTORY OF PRESENT ILLNESS This is a 46-year-old gentleman who was admitted to the hospital with abdominal pain. He was seen in the hospital 7 days ago with chest discomfort. A cardiac catheterization was done and coronary angiography was unable to be performed in that he was found to have a significant ascending aortic aneurysm and marked hypertension and was discharged on antihypertensive medications with a plan to see Dr. Mimi Pickett as an outpatient to discuss repair with surgery. He began to develop abdominal discomfort and he has returned to the hospital. Since his admission to the hospital a CT scan of his abdomen was done revealing a likely retroperitoneal hemorrhage into the rectus muscle. Laboratory exam actually shows a stable hemoglobin at 10 and blood pressures have been reasonably well-controlled at 145/73 with a heart rate of 74. PHYSICAL EXAMINATION VITAL SIGNS: His blood pressure is as above. ABDOMEN: The abdomen is very tender with some guarding. No masses are palpable. ASSESSMENT/RECOMMENDATION The patient has had a retroperitoneal hemorrhage into his rectus muscle. Tincture of time will help to resolve that, especially since his H&H is normal. Certainly agree with continuing his antihypertensive and will discuss his further care with Dr. Pickett of the surgical service. His troponins are mildly elevated at 0.07 and this is likely secondary to his previous event in as much as they are coming down. Kavon Haney MD DLW/BT /11:21 AM /12:17 PM
[2016-07-14] MEDS: METOPROLOL TARTRATE 50 MG TAB PO SCH ×2 (12:45→20:40)
[2016-07-14] MEDS: DOCUSATE SODIUM 50 MG/SENNA 8.6 MG TAB PO SCH (20:39)
[2016-07-14] MEDS: SODIUM CHLORIDE 0.9% FLUSH 5 ML FLUSH IVF PRN (20:39)
[2016-07-14] MEDS: ATORVASTATIN 80 MG TAB PO SCH (20:40)
[2016-07-15] VITALS (26 sets, daily range): BP systolic 141–158; BP diastolic 72–88; PULSE 60–82; RESP 16–22; TEMP 97.9–100.2; O2SAT 97–99
[2016-07-15] MEDS: oxyCODONE/ACETAMINOPHEN 5 MG/325 MG TAB PO PRN ×3 (05:32→20:11)
[2016-07-15] MEDS: METOPROLOL TARTRATE 50 MG TAB PO SCH ×3 (05:33→20:11)
[2016-07-15] MEDS ORDERED: NITROGLYCERIN 0.4 MG SL 25 TABS/BTL SL ONE (08:06)
[2016-07-15] MEDS ORDERED: IOHEXOL 350 MG/ML 10 ML VIAL (for RAD DIAG) IV ONE (09:51)
[2016-07-15] MEDS: HYDROCHLOROTHIAZIDE 25 MG TAB PO SCH (10:40)
[2016-07-15] MEDS: LEVOFLOXACIN 750 MG TAB PO SCH (10:40)
[2016-07-15] MEDS: LISINOPRIL 20 MG TAB PO SCH (10:41)
--- NOTE | 2016-07-15 10:53 | PD.CAR.PN ---
CVT Progress Note Subjective/Hospital Course: 46 yr/ male known to our service after his last admission 07/06/16 for uncontrolled HTN, noncompliance with meds 2/2 no insurance, c/o of left sided rib pain / underwent CTA chest which showed no evidence of PE, however it did show aneurysmal dilation of the ascending thoracic aorta with an AP diameter of 5.6cm , he also had some elevated troponins 0.17, some ECG changes Then underwent cardiac cath by Dr burgos, which was incomplete 2/2 inability to cannulate coronary ostia due to dilated aortic root and ascending aortic aneurysm. pt was discharged home with antihypertensive meds and f/u visit with Dr Pickett to discuss repair of aneurysm once his BP has been under improved control He re-presented to ED with right groin pain year-old gentleman who was admitted to the hospital with abdominal pain. CT abd/ pelvis showed retroperitoneal hemorrhage into the rectum muscle/ HGB stable at 10.5// trop trending down from previous admission to 0.07 also noted, BP has had improved control status is now awaiting results of Cardiac CTA he still somewhat painful to right groin area Objective: GENERAL: SKIN: Warm and dry. HEAD: Normocephalic. EYES: No scleral icterus. No injection or drainage. NECK: Supple, trachea midline. No JVD or lymphadenopathy. CARDIOVASCULAR: Regular rate and rhythm without murmurs, gallops, or rubs. right groin with palpable hematoma, good distal pulses, no ecchymosis to flank area RESPIRATORY: Breath sounds equal bilaterally. No accessory muscle use. GASTROINTESTINAL: Abdomen soft, non-tender, nondistended. MUSCULOSKELETAL: No cyanosis, or edema. BACK: Nontender without obvious deformity. No CVA tenderness. Vital Signs Date Time Temp Pulse Resp B/P Pulse Ox O2 Delivery O2 Flow Rate FiO2 07/15/16 08:00 62 07/15/16 07:00 98.6 63 16 146/76 98 07/15/16 07:00 63 07/15/16 06:00 70 07/15/16 05:41 99.4 72 22 158/78 99 07/15/16 05:00 73 07/15/16 04:00 72 07/15/16 03:00 70 07/15/16 02:08 98.6 72 20 141/81 98 07/15/16 02:00 68 07/15/16 01:00 67 07/15/16 00:00 69 07/14/16 23:00 74 07/14/16 22:00 81 07/14/16 21:09 98.7 80 20 142/73 98 07/14/16 21:00 82 07/14/16 20:00 80 07/14/16 19:00 84 07/14/16 18:22 73 07/14/16 17:45 72 07/14/16 16:01 83 07/14/16 15:48 72 07/14/16 15:48 98.0 72 18 146/78 99 07/14/16 14:01 76 07/14/16 13:46 18 07/14/16 13:06 76 07/14/16 12:08 73 07/14/16 11:40 76 07/14/16 11:40 98.2 76 18 145/74 100 Result Diagram: 07/14/16 0855 07/13/16 0534 (1) Hematoma (2) Hypertension (3) ascendign thoracic aortic aneurysm Plan: further plan per Dr Pickett continue BP control cardiac CTA pending Kirti Craft Jul 15, 2016 10:53
--- NOTE | 2016-07-15 11:45 | RADRPT ---
EXAM DATE/TIME: 07/15/2016 09:19 [place] COMPARISON: No previous studies available for comparison. INDICATIONS : Coronary atherosclerosis. IV CONTRAST: 75 cc Omnipaque 350 (iohexol) IV RADIATION DOSE: 11.55 CTDIvol (mGy) MEDICAL HISTORY : Cardiovascular disease. Hypertension. SURGICAL HISTORY : Appendectomy. ENCOUNTER: Initial ACUITY: 1 week PAIN SCALE: 0/10 LOCATION: chest TECHNIQUE: Volumetric scanning was obtained through the heart. Images were acquired on a multislice multiple ro w detector helical scanner timed for acquisition during peak arterial contrast. Images were reconstr ucted using a retrospective gating algorithm including single sector and multi-sector algorithms at m ultiple phases of the cardiac cycle. Images were interpreted using a combination of 2D and 3D visual ization modes including curved planar reformation, thin slab maximum intensity projection and volume rendering. Using automated exposure control and adjustment of the mA and/or kV according to patient size, radiation dose was kept as low as reasonably achievable to obtain optimal diagnostic quality im ages. FINDINGS: VESSEL ANALYSIS: DOMINANCE: The coronary system is codominant. LEFT MAIN: Normal vessel without calcification or stenosis. LAD: Normal vessel without calcification or stenosis. Diagonal branches are patent. CIRCUMFLEX: Normal vessel without significant stenosis. Posterolateral branches are patent. Minimal intraluminal irregularities. RCA: Normal vessel without calcification or stenosis. Posterior descending artery is patent. OTHER: There is aneurysmal dilatation of the proximal ascending aorta measuring 5.3 cm. CONCLUSION: 1. No significant coronary artery stenosis identified. 2. Aneurysmal dilatation ascending aorta measuring 5.3 cm. Martin Hines MD on July 15, 2016 at 11:42 Board Certified Radiologist. This report was verified electronically.
[2016-07-15 12:39] LABS: HEMATOCRIT 32.7 % (39.0-51.0); MEAN CELL VOLUME 92.2 FL (80.0-100.0); MEAN CORPUSCULAR HEMOGLOBIN 31.3 PG (27.0-34.0); MEAN CORPUSCULAR HGB CONC 33.9 % (32.0-36.0); PLATELET COUNT 268 TH/MM3 (150-450); RED BLOOD COUNT 3.55 MIL/MM3 (4.50-5.90); RED CELL DISTRIBUTION WIDTH 14.2 % (11.6-17.2); REVIEW FLAG FINAL; WHITE BLOOD COUNT 9.5 TH/MM3 (4.0-11.0)
--- NOTE | 2016-07-15 15:29 | HHI.FPPN ---
Subjective Remarks Per nurse report, last night pt was found to have some blisters along where he was lying on the telemetry wires. Otherwise, no acute events overnight. Except for some mild hypertension with blood pressure ranging from 140s to 150s systolic, afebrile and vital signs stable. Patient continues to complain of the same pain at the same location, with decreased intensity at rest, but exacerbated by coughing or sneezing or moving. Discussed with patient that we' ll be increasing his blood pressure medications. (Murray Spain MD R1) Objective Vitals Vital Signs Date Time Temp Pulse Resp B/P Pulse Ox O2 Delivery O2 Flow Rate FiO2 07/15/16 14:00 70 07/15/16 13:00 73 07/15/16 12:00 76 07/15/16 11:00 75 07/15/16 11:00 98.6 69 18 153/74 98 07/15/16 10:00 71 07/15/16 08:00 62 07/15/16 07:00 98.6 63 16 146/76 98 07/15/16 07:00 63 07/15/16 06:00 70 07/15/16 05:41 99.4 72 22 158/78 99 07/15/16 05:00 73 07/15/16 04:00 72 07/15/16 03:00 70 07/15/16 02:08 98.6 72 20 141/81 98 07/15/16 02:00 68 07/15/16 01:00 67 07/15/16 00:00 69 07/14/16 23:00 74 07/14/16 22:00 81 07/14/16 21:09 98.7 80 20 142/73 98 07/14/16 21:00 82 07/14/16 20:00 80 07/14/16 19:00 84 07/14/16 18:22 73 07/14/16 17:45 72 07/14/16 16:01 83 07/14/16 15:48 72 07/14/16 15:48 98.0 72 18 146/78 99 I/O 07/14/16 07/14/16 07/14/16 07/15/16 07/15/16 07/15/16 06:59 14:59 22:59 06:59 14:59 22:59 Intake Total 2710 ml 1780 ml 1065 ml Output Total 900 ml 600 ml 525 ml Balance 1810 ml 1180 ml 540 ml Intake Oral 1080 ml 480 ml 240 ml IV Total 1630 ml 1300 ml 825 ml Output Urine Total 900 ml 600 ml 525 ml # Bowel Movements 3 2 (Murray Spain MD R1) Result Diagram: 07/15/16 1227 07/13/16 0534 Imaging Last Impressions Coronary Angiography CT 07/14/16 1509 Signed Impressions: Service Date/Time: July 09:19 - CONCLUSION: 1. No significant coronary artery stenosis identified. 2. Aneurysmal dilatation ascending aorta measuring 5.3 cm. Martin Hines MD Abdomen/Pelvis CT 07/12/16 0937 Signed Impressions: Service Date/Time: Tuesday, July 12, 2016 10:04 - CONCLUSION: 1. Asymmetric enlargement of the right rectus abdominis musculature characteristic of rectus hematoma with heterogeneous predominantly high density masslike area in the right mid to lower abdomen most characteristic of acute hematoma with some free hemorrhage adjacent to the tip of the liver and in the pelvis. 2. Focal consolidation right lower lobe. Jimy Sotelo MD Chest X-Ray 07/12/16 0935 Signed Impressions: Service Date/Time: Tuesday, July 12, 2016 09:33 - CONCLUSION: No acute disease. Jimy Sotelo MD Objective Remarks O. CONSTITUTIONAL/GEN: normally nourished, patient lying in bed in no acute distress EYES: conjunctiva normal, PERRLA, EOMI. ENT: MM moist. NECK: thyroid midline, carotids symmetrical. LUNGS: Decreased breath sounds at the right lung base, respiratory effort is normal. CARDIOVASCULAR: RRR with iii/vi murmur best in aortic and pulmonic areas. No significant edema. GI/ABD: soft without masses, without organomegaly. Very tender right mid and lower abdomen with guarding to palpation. BS + NEURO: No focal deficits. SKIN/BACK: color normal, some vesicular lesions on the right side of pt's back , relatively linear distribution. No ecchymosis seen in right groin, tender in right groin. HEME/LYMPH: no bruising, petechia or significant adenopathy MUSC: Extremities are normal in appearance with scarring of dorsum left foot. PSYCH/MENTAL STATUS: Alert and oriented x 3. (Murray Spain MD R1) A/P Assessment and Plan 46-year-old male status post cardiac catheterization on 07/07 presents with right groin hematoma and hypertensive urgency. Incidentally, he also has a pneumonia and an ascending aortic aneurysm. He is admitted for pain control, blood pressure control, cardiac consult. Per Dr. Pickett, goal blood pressure is 130. Discharge Planning Plan to discharge pending pain control and blood pressure control and pending cardiology recommendations (Murray Spain MD R1) Attending Attestation Patient seen and examined. Case reviewed and discussed with the resident team. Agree with plan of care as discussed with me and documented in the resident note. (Elizabeth Villafana MD) Problem List: (1) Hematoma Status: Acute Plan: Patient presents with intractable pain because of a hematoma likely created after his catheterization on 07/07 -Trend H&H as below -Pain management: Morphine 2 mg IV every 2 hours when necessary pain 6-10; Percocet 1 tab by mouth every 4 hours when necessary pain 1-5 -Latrice-Colace 2 tab by mouth daily at bedtime -Cardiology consult recommends tincture of time (2) Ascending aortic aneurysm Status: Chronic Plan: Ascending aortic aneurysm noted on cardiac catheterization and on CTA on 07/06, AP diameter measures 5.6 cm. -Cardiothoracic surgery consulted on previous admission. Patient will need surgical repair, coordination to be completed as outpatient. Patient to have outpatient follow up appointment with Dr. Mimi Pickett July 21. -Patient was informed of need for strict blood pressure control. Dr. Pickett recommended goal blood pressure of 130. -RPR negative (3) Anemia Status: Acute Plan: Hemoglobin remained stable. -Daily CBC (4) Hypertension Status: Acute Plan: Patient presented in hypertensive urgency with blood pressure 207/82 - Continue patient's home Lisinopril 40 mg daily and HCTZ 25 mg daily, Norvasc 10mg daily. - Increased metoprolol from 50 mg by mouth every 8 hours to 100 mg by mouth bid ; consider changing to labetalol - Will continue to titrate medications as necessary to get as close as possible to blood pressure goal of 130 (5) CHF (congestive heart failure) Status: Acute Plan: Echocardiogram on 07/07 shows ejection fraction of 35-40%, diffuse hypokinesis. -Continue home lisinopril 40 mg daily (6) PNA (pneumonia) Status: Acute Plan: Patient was being treated for PNA on presentation with levaquin [address] performed in the ER confirms a right lower lobe consolidation. -Continue levaquin 750 mg PO daily (7) Elevated troponin Status: Chronic Plan: Cardiology not concerned about elevated troponin, likely due to previous event, trending down ACS rule out negative with troponin and EKG stable 3 - Cardiology requested CTA of coronary arteries. No significant stenosis. (8) FEN/PPX Status: Acute Plan: Fluids: Normal saline at 130 ml/hr Electrolytes: Monitor and replace when necessary Nutrition: Heart healthy diet Prophylaxis: Bilateral SCDs (Murray Spain MD R1) Problem Qualifiers (1) Anemia: Qualified Code: D64.9 - Anemia, unspecified type (2) PNA (pneumonia): Qualified Code: J18.1 - Pneumonia of right lower lobe due to infectious organism Murray Spain MD R1 Jul 15, 2016 15:29 Elizabeth Villafana MD Jul 15, 2016 16:16
[2016-07-15] MEDS: DOCUSATE SODIUM 50 MG/SENNA 8.6 MG TAB PO SCH (20:10)
[2016-07-15] MEDS: ATORVASTATIN 80 MG TAB PO SCH (20:10)
[2016-07-15] MEDS: SODIUM CHLORIDE 0.9% FLUSH 5 ML FLUSH IVF PRN (20:11)
[2016-07-16] VITALS (9 sets, daily range): BP systolic 121–148; BP diastolic 60–72; PULSE 58–67; RESP 16–20; TEMP 98.4–98.7; O2SAT 98–99
[2016-07-16] MEDS: oxyCODONE/ACETAMINOPHEN 5 MG/325 MG TAB PO PRN (03:50)
[2016-07-16 05:49] LABS: HEMATOCRIT 31.6 % (39.0-51.0); MEAN CELL VOLUME 90.1 FL (80.0-100.0); MEAN CORPUSCULAR HEMOGLOBIN 30.6 PG (27.0-34.0); PLATELET COUNT 289 TH/MM3 (150-450); RED BLOOD COUNT 3.51 MIL/MM3 (4.50-5.90); RED CELL DISTRIBUTION WIDTH 14.5 % (11.6-17.2); REVIEW FLAG FINAL; WHITE BLOOD COUNT 8.6 TH/MM3 (4.0-11.0)
[2016-07-16] MEDS: SODIUM CHLOR 0.9% 1000 ML INJ 1,000 ML IV SCH (06:44)
[2016-07-16] MEDS: LISINOPRIL 20 MG TAB PO SCH (08:43)
[2016-07-16] MEDS: METOPROLOL TARTRATE 50 MG TAB PO SCH (08:44)
[2016-07-16] MEDS: HYDROCHLOROTHIAZIDE 25 MG TAB PO SCH (08:44)
[2016-07-16] MEDS: LEVOFLOXACIN 750 MG TAB PO SCH (08:44)
--- NOTE | 2016-07-16 09:07 | PD.CARD.PN ---
Subjective Subjective Remarks denies chest pain, SOB or palpitations. Resting comfortably in bed. Objective Medications Current Medications Medications (Trade) Dose Ordered Sig/Rory Route Start Time Stop Time Status Last Admin (NS Flush) 2 ml UNSCH PRN IVF 07/12/16 09:45 07/15/16 20:11 (Zofran Inj) 4 mg Q6H PRN IV 07/12/16 13:15 (Percocet 5-325 Mg) 1 tab Q4H PRN PO 07/12/16 13:15 07/16/16 03:50 (Morphine Inj) 2 mg Q2HR PRN IV PUSH 07/12/16 13:15 (Trandate Inj) 10 mg Q4H PRN IV PUSH 07/12/16 13:30 07/13/16 03:35 (Norvasc) 10 mg DAILY PO 07/13/16 09:00 07/16/16 08:44 (Lipitor) 80 mg HS PO 07/12/16 21:00 07/15/16 20:10 (Hydrodiuril) 25 mg DAILY PO 07/13/16 09:00 07/16/16 08:44 (Levaquin) 750 mg DAILY PO 07/13/16 09:00 07/16/16 08:44 Lisinopril 40 mg 40 mg DAILY PO 07/13/16 09:00 07/16/16 08:43 (NS 1000 ml Inj) 1,000 ml @ 130 mls/hr Q7H42M IV 07/12/16 18:02 07/14/16 23:56 (Latrice-Colace) 2 tab HS PO 07/13/16 21:00 07/15/16 20:10 (Vasotec Inj) 1.25 mg Q6H PRN IV 07/13/16 15:45 (Apresoline Inj) 10 mg Q6H PRN IV 07/13/16 15:45 (Lopressor) 100 mg BID PO 07/15/16 21:00 07/16/16 08:44 Vital Signs / I&O Vital Signs Date Time Temp Pulse Resp B/P Pulse Ox O2 Delivery O2 Flow Rate FiO2 07/16/16 07:00 58 07/16/16 07:00 98.7 62 16 146/67 99 07/16/16 03:33 98.6 67 20 148/72 98 07/16/16 03:00 67 07/16/16 02:00 64 07/16/16 01:00 61 07/16/16 00:25 98.4 61 20 121/60 99 07/16/16 00:00 63 07/15/16 23:00 60 07/15/16 22:00 66 07/15/16 21:00 62 07/15/16 20:08 100.2 81 20 149/72 99 07/15/16 20:00 77 07/15/16 19:00 82 07/15/16 18:00 76 07/15/16 17:00 63 07/15/16 16:00 74 07/15/16 15:00 80 07/15/16 15:00 97.9 67 20 150/88 97 07/15/16 14:00 70 07/15/16 13:00 73 07/15/16 12:00 76 07/15/16 11:00 75 07/15/16 11:00 98.6 69 18 153/74 98 07/15/16 10:00 71 I/O 07/15/16 07/15/16 07/15/16 07/16/16 07/16/16 07/16/16 07:00 15:00 23:00 07:00 15:00 23:00 Intake Total 1065 ml 3325 ml 1080 ml Output Total 525 ml 700 ml 870 ml Balance 540 ml 2625 ml 210 ml Intake Oral 240 ml 840 ml 480 ml IV Total 825 ml 2485 ml 600 ml Output Urine Total 525 ml 700 ml 870 ml Stool Total 0 ml # Bowel Movements 2 Physical Exam GENERAL: SKIN: Warm and dry. HEAD: Atraumatic. Normocephalic. . ENT: No nasal bleeding or discharge. Mucous membranes pink and moist. NECK: Trachea midline. No JVD. CARDIOVASCULAR: Regular rate and rhythm. RESPIRATORY: No accessory muscle use. Clear to auscultation. Breath sounds equal bilaterally. MUSCULOSKELETAL: Extremities without clubbing, cyanosis, or edema. No obvious deformities. NEUROLOGICAL: Awake and alert. No obvious cranial nerve deficits. Normal speech. PSYCHIATRIC: Appropriate mood and affect; insight and judgment normal. Laboratory Laboratory Tests Test 07/15/16 07/16/16 12:27 05:25 White Blood Count 9.5 TH/MM3 8.6 TH/MM3 Red Blood Count 3.55 MIL/MM3 3.51 MIL/MM3 Hemoglobin 11.1 GM/DL 10.7 GM/DL Hematocrit 32.7 % 31.6 % Mean Corpuscular Volume 92.2 FL 90.1 FL Mean Corpuscular Hemoglobin 31.3 PG 30.6 PG Mean Corpuscular Hemoglobin 33.9 % 34.0 % Concent Red Cell Distribution Width 14.2 % 14.5 % Platelet Count 268 TH/MM3 289 TH/MM3 Mean Platelet Volume 7.5 FL 7.4 FL Imaging Last Impressions Coronary Angiography CT 07/14/16 1509 Signed Impressions: Service Date/Time: July 09:19 - CONCLUSION: 1. No significant coronary artery stenosis identified. 2. Aneurysmal dilatation ascending aorta measuring 5.3 cm. Martin Hines MD Abdomen/Pelvis CT 07/12/16 0937 Signed Impressions: Service Date/Time: Tuesday, July 12, 2016 10:04 - CONCLUSION: 1. Asymmetric enlargement of the right rectus abdominis musculature characteristic of rectus hematoma with heterogeneous predominantly high density masslike area in the right mid to lower abdomen most characteristic of acute hematoma with some free hemorrhage adjacent to the tip of the liver and in the pelvis. 2. Focal consolidation right lower lobe. Jimy Sotelo MD Chest X-Ray 07/12/16 0935 Signed Impressions: Service Date/Time: Tuesday, July 12, 2016 09:33 - CONCLUSION: No acute disease. Jimy Sotelo MD Assessment and Plan Problem List: (1) Hematoma Assessment and Plan: H&H remains stable. (2) Hypertension Assessment and Plan: continue bb, ccb and ACEi. Maintain good BP control with SBP goal 130. (3) ascendign thoracic aortic aneurysm Assessment and Plan: Outpatient appt scheduled with Dr. Cheatham on 07/21/16 for likely surgical repair. will sign off. Contact Dr. Ceballos with any questions. Kelsie Trujillo Jul 16, 2016 09:07
[2016-07-16] MEDS ORDERED: OXYC1TAB63 PO (09:12)
[2016-07-16] MEDS ORDERED: METO-309 PO (09:13)
--- NOTE | 2016-07-16 09:21 | HHI.FPPN ---
Subjective Remarks No acute events overnight. Mild hypertension with blood pressure in the 140s and borderline bradycardia with heart rate in the 60s, otherwise afebrile and vital signs stable overnight. Per nurse and patient report, patient has been out of bed to bathroom, moving his bowels well. Patient feels comfortable going home to his parents house where they can assist him. (Murray Spain MD R1) Objective Vitals Vital Signs Date Time Temp Pulse Resp B/P Pulse Ox O2 Delivery O2 Flow Rate FiO2 07/16/16 09:00 67 07/16/16 08:00 62 07/16/16 07:00 58 07/16/16 07:00 98.7 62 16 146/67 99 07/16/16 03:33 98.6 67 20 148/72 98 07/16/16 03:00 67 07/16/16 02:00 64 07/16/16 01:00 61 07/16/16 00:25 98.4 61 20 121/60 99 07/16/16 00:00 63 07/15/16 23:00 60 07/15/16 22:00 66 07/15/16 21:00 62 07/15/16 20:08 100.2 81 20 149/72 99 07/15/16 20:00 77 07/15/16 19:00 82 07/15/16 18:00 76 07/15/16 17:00 63 07/15/16 16:00 74 07/15/16 15:00 80 07/15/16 15:00 97.9 67 20 150/88 97 07/15/16 14:00 70 07/15/16 13:00 73 07/15/16 12:00 76 07/15/16 11:00 75 07/15/16 11:00 98.6 69 18 153/74 98 07/15/16 10:00 71 I/O 07/15/16 07/15/16 07/15/16 07/16/16 07/16/16 07/16/16 07:00 15:00 23:00 07:00 15:00 23:00 Intake Total 1065 ml 3325 ml 1080 ml Output Total 525 ml 700 ml 870 ml Balance 540 ml 2625 ml 210 ml Intake Oral 240 ml 840 ml 480 ml IV Total 825 ml 2485 ml 600 ml Output Urine Total 525 ml 700 ml 870 ml Stool Total 0 ml # Bowel Movements 2 (Murray Spain MD R1) Result Diagram: 07/16/16 0525 07/13/16 0534 Imaging Last Impressions Coronary Angiography CT 07/14/16 1509 Signed Impressions: Service Date/Time: July 09:19 - CONCLUSION: 1. No significant coronary artery stenosis identified. 2. Aneurysmal dilatation ascending aorta measuring 5.3 cm. Martin Hines MD Abdomen/Pelvis CT 07/12/16 0937 Signed Impressions: Service Date/Time: Tuesday, July 12, 2016 10:04 - CONCLUSION: 1. Asymmetric enlargement of the right rectus abdominis musculature characteristic of rectus hematoma with heterogeneous predominantly high density masslike area in the right mid to lower abdomen most characteristic of acute hematoma with some free hemorrhage adjacent to the tip of the liver and in the pelvis. 2. Focal consolidation right lower lobe. Jimy Sotelo MD Chest X-Ray 07/12/16 0935 Signed Impressions: Service Date/Time: Tuesday, July 12, 2016 09:33 - CONCLUSION: No acute disease. Jimy Sotelo MD Objective Remarks O. CONSTITUTIONAL/GEN: normally nourished, patient lying in bed in no acute distress EYES: conjunctiva normal, PERRLA, EOMI. ENT: MM moist. NECK: thyroid midline, carotids symmetrical. LUNGS: Decreased breath sounds at the right lung base, respiratory effort is normal. CARDIOVASCULAR: RRR with iii/vi murmur best in aortic and pulmonic areas. No significant edema. GI/ABD: Right lower quadrant appendectomy scar, soft without masses, without organomegaly. Very tender right mid and lower abdomen with guarding to palpation. BS + NEURO: No focal deficits. SKIN/BACK: color normal, some vesicular lesions on the right side of pt's back , relatively linear distribution. No ecchymosis seen in right groin, tender in right groin. HEME/LYMPH: no bruising, petechia or significant adenopathy MUSC: Extremities are normal in appearance with scarring of dorsum left foot. PSYCH/MENTAL STATUS: Alert and oriented x 3. (Murray Spain MD R1) A/P Assessment and Plan 46-year-old male status post cardiac catheterization on 07/07 presents with right groin hematoma and hypertensive urgency. Incidentally, he also has a pneumonia and an ascending aortic aneurysm. He is admitted for pain control, blood pressure control, cardiac consult. Per Dr. Pickett, goal blood pressure is 130. Discharge Planning Plan to discharge pending pain control and blood pressure control and pending cardiology who recommended tincture of time. (Murray Spain MD R1) Attending Attestation Patient seen and examined. Case reviewed and discussed with the resident team. Agree with plan of care as discussed with me and documented in the resident note. (Elizabeth Villafana MD) Problem List: (1) Hematoma Status: Acute Plan: Patient presents with intractable pain because of a hematoma likely created after his catheterization on 07/07 -Trend H&H as below -Pain management: Morphine 2 mg IV every 2 hours when necessary pain 6-10; discharge on Percocet 5-to 25 mg 1 tab by mouth every 4 hours when necessary pain -Cardiology consult recommends tincture of time (2) Ascending aortic aneurysm Status: Chronic Plan: Ascending aortic aneurysm noted on cardiac catheterization and on CTA on 07/06, AP diameter measures 5.6 cm. -Cardiothoracic surgery consulted on previous admission. Patient will need surgical repair, coordination to be completed as outpatient. Patient to have outpatient follow up appointment with Dr. Mimi Pickett July 21. -Patient was informed of need for strict blood pressure control. Dr. Pickett recommended goal blood pressure of 130. Patient currently with blood pressure in the 140s. -RPR negative (3) Anemia Status: Acute Plan: Hemoglobin remained stable. -Daily CBC (4) Hypertension Status: Acute Plan: Patient presented in hypertensive urgency with blood pressure 207/82 - Continue patient's home Lisinopril 40 mg daily and HCTZ 25 mg daily, Norvasc 10mg daily. - Discharge with new medication of metoprolol 100 mg by mouth bid - Continue to titrate medications as outpatient to get as close as possible to blood pressure goal of 130 (5) CHF (congestive heart failure) Status: Acute Plan: Echocardiogram on 07/07 shows ejection fraction of 35-40%, diffuse hypokinesis. -Continue home lisinopril 40 mg daily (6) PNA (pneumonia) Status: Acute Plan: Patient was being treated for PNA on presentation with levaquin [address] performed in the ER confirms a right lower lobe consolidation. Pt has been on antibiotics since 07/06/2016. Today is day 11 of antibiotics. -Continue levaquin 750 mg PO daily for 3 more days (7) Elevated troponin Status: Chronic Plan: Cardiology not concerned about elevated troponin, likely due to previous event, trending down ACS rule out negative with troponin and EKG stable 3 - Cardiology requested CTA of coronary arteries. No significant stenosis. (8) FEN/PPX Status: Acute Plan: Fluids: Normal saline at 130 ml/hr Electrolytes: Monitor and replace when necessary Nutrition: Heart healthy diet Prophylaxis: Bilateral SCDs (Murray Spain MD R1) Problem Qualifiers (1) Anemia: Qualified Code: D64.9 - Anemia, unspecified type (2) PNA (pneumonia): Qualified Code: J18.1 - Pneumonia of right lower lobe due to infectious organism Murray Spain MD R1 Jul 16, 2016 09:21 Elizabeth Villafana MD Jul 16, 2016 11:25
--- NOTE | 2016-07-27 20:19 | HHI.DS ---
Discharge Summary Admission Date Jul 12, 2016 at 11:44 Admitting Diagnosis hematoma (1) Hematoma Diagnosis: Principal Plan: Patient presents with intractable pain because of a hematoma likely created after his catheterization on 07/07 -Trend H&H as below -Pain management: Morphine 2 mg IV every 2 hours when necessary pain 6-10; discharge on Percocet 5-to 25 mg 1 tab by mouth every 4 hours when necessary pain -Cardiology consult recommends tincture of time (2) Ascending aortic aneurysm Diagnosis: Principal Plan: Ascending aortic aneurysm noted on cardiac catheterization and on CTA on 07/06, AP diameter measures 5.6 cm. -Cardiothoracic surgery consulted on previous admission. Patient will need surgical repair, coordination to be completed as outpatient. Patient to have outpatient follow up appointment with Dr. Mimi Pickett July 21. -Patient was informed of need for strict blood pressure control. Dr. Pickett recommended goal blood pressure of 130. Patient currently with blood pressure in the 140s. -RPR negative (3) Anemia Diagnosis: Principal Plan: Hemoglobin remained stable. -Daily CBC (4) Hypertension Diagnosis: Principal Plan: Patient presented in hypertensive urgency with blood pressure 207/82 - Continue patient's home Lisinopril 40 mg daily and HCTZ 25 mg daily, Norvasc 10mg daily. - Discharge with new medication of metoprolol 100 mg by mouth bid - Continue to titrate medications as outpatient to get as close as possible to blood pressure goal of 130 (5) CHF (congestive heart failure) Diagnosis: Secondary Plan: Echocardiogram on 07/07 shows ejection fraction of 35-40%, diffuse hypokinesis. -Continue home lisinopril 40 mg daily (6) PNA (pneumonia) Diagnosis: Secondary Plan: Patient was being treated for PNA on presentation with levaquin [address] performed in the ER confirms a right lower lobe consolidation. Pt has been on antibiotics since 07/06/2016. Today is day 11 of antibiotics. -Continue levaquin 750 mg PO daily for 3 more days (7) Elevated troponin Diagnosis: Secondary Plan: Cardiology not concerned about elevated troponin, likely due to previous event, trending down ACS rule out negative with troponin and EKG stable 3 - Cardiology requested CTA of coronary arteries. No significant stenosis. (8) FEN/PPX Diagnosis: Secondary Plan: Fluids: Normal saline at 130 ml/hr Electrolytes: Monitor and replace when necessary Nutrition: Heart healthy diet Prophylaxis: Bilateral SCDs [facility] Cardiology Brief History This is a 46 year old male s/p cardiac catherization on 07/07, who presents with right sided groin pain and hematoma. For the last 2 days he has had 10 out of 10, constant, throbbing pain in his right groin at the site where he underwent catheterization on 07/07. The Percocet did not help this pain. It stays in his right groin and does not radiate. After receiving 1 mg of Dilaudid in the emergency room his pain is now currently 4 out of 10. His pain is worse when he strains to use the bathroom and when he urinates. Denies chest pain, nausea, vomiting, diarrhea, fever, chills. Imaging Last Impressions Coronary Angiography CT 07/14/16 1509 Signed Impressions: Service Date/Time: July 09:19 - CONCLUSION: 1. No significant coronary artery stenosis identified. 2. Aneurysmal dilatation ascending aorta measuring 5.3 cm. Martin Hines MD Abdomen/Pelvis CT 07/12/16 0920 Signed Impressions: Service Date/Time: Tuesday, July 12, 2016 10:04 - CONCLUSION: 1. Asymmetric enlargement of the right rectus abdominis musculature characteristic of rectus hematoma with heterogeneous predominantly high density masslike area in the right mid to lower abdomen most characteristic of acute hematoma with some free hemorrhage adjacent to the tip of the liver and in the pelvis. 2. Focal consolidation right lower lobe. Jimy Sotelo MD Chest X-Ray 07/12/16 0957 Signed Impressions: Service Date/Time: Tuesday, July 12, 2016 09:33 - CONCLUSION: No acute disease. Jimy Sotelo MD PE at Discharge O. CONSTITUTIONAL/GEN: normally nourished, patient lying in bed in no acute distress EYES: conjunctiva normal, PERRLA, EOMI. ENT: MM moist. NECK: thyroid midline, carotids symmetrical. LUNGS: Decreased breath sounds at the right lung base, respiratory effort is normal. CARDIOVASCULAR: RRR with iii/vi murmur best in aortic and pulmonic areas. No significant edema. GI/ABD: Right lower quadrant appendectomy scar, soft without masses, without organomegaly. Very tender right mid and lower abdomen with guarding to palpation. BS + NEURO: No focal deficits. SKIN/BACK: color normal, some vesicular lesions on the right side of pt's back , relatively linear distribution. No ecchymosis seen in right groin, tender in right groin. HEME/LYMPH: no bruising, petechia or significant adenopathy MUSC: Extremities are normal in appearance with scarring of dorsum left foot. PSYCH/MENTAL STATUS: Alert and oriented x 3. Hospital Course Pt was admitted for pain control, monitoring of anemia the context of a hematoma , and blood pressure control in the context of an ascending aortic aneurysm. Pt' s pain was controlled Cardiology recommended tincture of time. Blood pressure medications were added and titrated to get pt's blood pressure as close as possible to the goal of sbp of 130. Pt Condition on Discharge: Stable Discharge Disposition: Discharge Home Discharge Instructions DIET: Follow Instructions for: Heart Healthy Diet Activities you can perform: Regular-No Restrictions Other Activity Instructions: Take it easy so you don't exacerbate your pain. Follow up Referrals: Cardiothoracic Surgery with Mimi Pickett MD PCP Follow-up - 1 Week New Medications: Metoprolol Tartrate (Lopressor) 50 Mg Tab 100 MG PO BID #60 TAB Oxycodone-Acetaminophen (Oxycodone-Acetaminophen) 5-325 mg Tab 1 TAB PO Q4H PRN PAIN SCALE 1 TO 5 #30 TAB Continued Medications: Amlodipine (Norvasc) 10 Mg Tab 10 MG PO DAILY #30 TAB Aspirin (Aspirin) 81 Mg Chew 81 MG CHEW DAILY Ref 0 TAB Atorvastatin (Lipitor) 80 Mg Tab 80 MG PO HS #30 TAB Hydrochlorothiazide (Hydrochlorothiazide) 25 Mg Tab 25 MG PO DAILY #30 TAB Lisinopril (Lisinopril) 20 Mg Tab 40 MG PO DAILY #30 TAB Metoprolol Succinate ER 24 HR (Metoprolol Succinate ER 24 HR) 25 Mg Tab 25 MG PO DAILY #90 Ref 0 TAB Oxycodone-Acetaminophen (Oxycodone-Acetaminophen) 5-325 mg Tab 1 TAB PO Q4H PRN Pain 6-10 #30 Ref 0 TAB Murray Spian MD R1 Jul 27, 2016 20:19
== END 2016-07-16 11:14 | disposition home or self-care (01) | DRG 862 ==
LOC: NEPC 09:11 → NEDA 11:44 → HCIS 14:38
PROVIDERS: ADMIT Family Medicine; ATTEND Family Medicine
DX: K68.11 Postprocedural retroperitoneal abscess (principal); J18.9 Pneumonia, unspecified organism; I50.9 Heart failure, unspecified; I71.2 Thoracic aortic aneurysm, without rupture; I10 Essential (primary) hypertension; E78.5 Hyperlipidemia, unspecified; D64.9 Anemia, unspecified; I16.0 Hypertensive urgency; K59.00 Constipation, unspecified; Z86.73 Personal history of transient ischemic attack (TIA), and cerebral infarction without residual deficits; Z87.891 Personal history of nicotine dependence; Z91.14 Patient's other noncompliance with medication regimen
CPT/HCPCS: 71010; 74177; 75574; 80053; 81001; 83605; 83690; 84484; 85014; 85018; 85025; 85027; 85610; 85730; 86850; 86900; 86901; 93005; 94150; 96374; 96375; J1170; J7030; Q9967

== ENCOUNTER → 2017-08-17 | Outpatient (CLI) | payer OTHER ==
[~2017-08-17] MED LIST changes: +ASPI-516 CHEW; -ASPI81CH CHEW; +HYDR-3800 PO; -LEVA750T PO; -LISI-515 PO; +LISI40TA PO; +METO-309 PO; -METO25TA6 PO; -OXYC1TAB63 PO; -SENN1TAB PO
[2017-08-17 13:17] LABS: AUTOMATED NEUTROPHIL # 5.4 TH/MM3 (1.8-7.7); BASOPHIL # 0.1 TH/MM3 (0-0.2); BASOPHIL % 0.8 % (0.0-2.0); EOSINOPHIL # 0.4 TH/MM3 (0-0.4); EOSINOPHIL % 3.9 % (0.0-4.0); HEMATOCRIT 41.2 % (39.0-51.0); HEMOGLOBIN 14.2 GM/DL (13.0-17.0); LYMPH % 27.9 % (9.0-44.0); LYMPHOCYTE # 2.5 TH/MM3 (1.0-4.8); MEAN CELL VOLUME 87.9 FL (80.0-100.0); MEAN CORPUSCULAR HEMOGLOBIN 30.3 PG (27.0-34.0); MEAN CORPUSCULAR HGB CONC 34.5 % (32.0-36.0); MEAN PLATELET VOLUME 8.5 FL (7.0-11.0); MONO % 7.4 % (0.0-8.0); MONOCYTE # 0.7 TH/MM3 (0-0.9); PLATELET COUNT 233 TH/MM3 (150-450); RED BLOOD COUNT 4.68 MIL/MM3 (4.50-5.90); RED CELL DISTRIBUTION WIDTH 13.2 % (11.6-17.2)
[2017-08-17 13:24] LABS: PROTHROMBIN TIME - PATIENT 10.6 SEC (9.8-11.6)
[2017-08-17 13:40] LABS: CALCIUM 9.6 MG/DL (8.5-10.1); CREATININE 1.35 MG/DL (0.60-1.30)
[2017-08-17 13:47] LABS: BILIRUBIN, URINE NEG (NEG); BLOOD, URINE NEG (NEG); GLUCOSE,URINE NEG (NEG); KETONE, URINE NEG (NEG); NITRITE,URINE NEG (NEG); SQUAMOUS EPITHELIAL CELL URINE <1 /hpf (0-5); URINE COLOR YELLOW (YELLW/STRAW); URINE LEUKOCYTE ESTERASE NEG (NEG)
--- NOTE | 2017-08-17 15:02 | RADRPT ---
EXAM DATE/TIME: 08/17/2017 13:41 [facility] COMPARISON: No previous studies available for comparison. INDICATIONS : Evaluate for pneumonia, pneumothorax, or communicable disease. Pre op for aortic valve replacement a nd repair of the thoracic aortic aneurysm. MEDICAL HISTORY : Cardiovascular disease. Hypertension. SURGICAL HISTORY : Appendectomy. ENCOUNTER: Initial ACUITY: 1 day PAIN SCORE: 0/10 LOCATION: Bilateral chest FINDINGS: The heart is enlarged. The pulmonary vascular pattern is normal. The lungs are clear. CONCLUSION: Cardiomegaly. No focal infiltrate or pulmonary vascular congestion. Mata Martinez MD on August 17, 2017 at 14:59 Board Certified Radiologist. This report was verified electronically.
--- NOTE | 2017-08-18 10:00 | RSPPFT ---
DATE OF PROCEDURE: 08/17/17 COMMENTS: The forced vital capacity shows a moderate reduction. The FEV1 is moderately reduced. The FEV1/FVC ratio is normal. The FEF 25-75 shows a small reduction. IMPRESSION: This is consistent with moderate restrictive lung disease with a mild small and large airways obstruction.
--- NOTE | 2017-08-18 21:31 | EKG ---
Date Performed: 08/17/2017 Time Performed: 13:09:56 PTAGE: 47 years EKG: Sinus rhythm INTRAVENTRICULAR CONDUCTION DELAY POSSIBLE LEFT VENTRICULAR HYPERTROPHY SINCE PRIOR TRACING PREVIOUS LY SEEN ANTEROLATERAL T-WAVE CHANGES HAVE IMPROVED. ABNORMAL ECG PREVIOUS TRACING : 07/12/2016 22.09 DOCTOR: Puneet Lawson Interpretating Date/Time 08/18/2017 21:29:15
== END ==
LOC: CPRE 12:10
PROVIDERS: ATTEND Thoracic Surgery (Cardiothoracic Vascular Surgery)
DX: Z01.812 Encounter for preprocedural laboratory examination (principal); Z01.811 Encounter for preprocedural respiratory examination; Z01.810 Encounter for preprocedural cardiovascular examination; I71.2 Thoracic aortic aneurysm, without rupture; I35.1 Nonrheumatic aortic (valve) insufficiency; I50.32 Chronic diastolic (congestive) heart failure; R94.31 Abnormal electrocardiogram [ECG] [EKG]
CPT/HCPCS: 36415; 71046; 80048; 81001; 85025; 85610; 85730; 86850; 86900; 86901; 87640; 87641; 93005; 94010

== ENCOUNTER 2017-08-24 07:30 | Inpatient (IN) | payer OTHER ==
[~2017-08-24] VITALS: Ht 172.7 cm; Wt 114.5 kg
[2017-09-06] VITALS (9 sets, daily range): BP systolic 102–133; BP diastolic 60–82; PULSE 67–91; RESP 16–17; TEMP 97.6–98.3; O2SAT 94–98
[2017-09-06] MEDS ORDERED: LACTATED RINGER'S 1000 ML IV PRN (05:45)
[2017-09-06] MEDS ORDERED: SODIUM CHLORID 0.9% 500 ML IV PRN (05:45)
[2017-09-06] MEDS ORDERED: CHLORHEXIDINE GLUCONATE 2 % 1 PACK (2 CLOTHS) TOPICAL PRN (05:45)
[2017-09-06] MEDS ORDERED: METOPROLOL TARTRATE 25 MG TAB PO PRN (05:45)
[2017-09-06] MEDS ORDERED: POVIDONE IODINE 5% (ANTISEPSIS KIT) 4 APPLICATIONS EACH NARE PRN (05:45)
[2017-09-06] MEDS ORDERED: VANCOMYCIN HCL 1000 MG VIAL ONE (06:32)
[2017-09-06] MEDS ORDERED: ceFAZolin 2 GM PREMIX 50 ML ONE ×2 (06:32→11:59)
[2017-09-06] MEDS ORDERED: HEPARIN SODIUM - SQ 10,000 UNITS/ML VIAL ONE (06:32)
[2017-09-06] MEDS ORDERED: ceFAZolin INJ 1,000 MG VIAL ONE (06:32)
[2017-09-06] MEDS ORDERED: methylPREDNISolone SOD SUCC 125 MG/2 ML VIAL ONE (06:32)
[2017-09-06] MEDS ORDERED: SODIUM CHLORIDE 0.9% FLUSH 10 ML FLUSH IV FLUSH PRN ×3 (07:00→14:15)
[2017-09-06] MEDS ORDERED: NS IV SCH ×2 (07:00)
[2017-09-06] MEDS ORDERED: METOPROLOL TARTRATE 25 MG TAB PO SCH (07:00)
[2017-09-06] MEDS ORDERED: INSULIN REGULAR 100 UNITS in NS 100 ML IV PRN (07:00)
[2017-09-06] MEDS ORDERED: CEFAZOLIN IV SCH ×2 (07:00)
[2017-09-06] MEDS ORDERED: CHLORHEXIDINE GLUCONATE 4% SOLN 120 ML BTL TOPICAL SCH (07:00)
[2017-09-06] MEDS ORDERED: CEFAZOLIN 500 MG in NS IRR BTL 500 ML IRRIGATION SCH (07:00)
[2017-09-06] MEDS ORDERED: HEPARIN SODIUM - IV 10,000 UNITS/10 ML VIAL ONE (07:31)
[2017-09-06] MEDS ORDERED: CUSTODIOL HTK IRR SOLN 2,000 ML ONE (07:31)
[2017-09-06] MEDS ORDERED: POTASSIUM CHLORIDE 40 MEQ/20 ML VIAL ONE (07:31)
[2017-09-06] MEDS ORDERED: SODIUM BICARBONATE 8.4% INJ 150 ML ONE (07:32)
[2017-09-06] MEDS ORDERED: MANNITOL INJ 100 ML ONE (07:32)
[2017-09-06] MEDS ORDERED: CALCIUM CHLORIDE 10% SOLN 1 GRAM/10 ML SYR ONE (07:32)
[2017-09-06] MEDS ORDERED: ALBUMIN 25% INJ 50 ML IV ONE (07:33)
[2017-09-06] MEDS ORDERED: ATROPINE SULFATE 0.4 MG/ML VIAL IV PUSH ONE (12:00)
[2017-09-06] MEDS ORDERED: NORMOSOL R INJ 2,000 ML IV ONE (12:00)
[2017-09-06] MEDS ORDERED: SODIUM CHLOR 0.9% 250 ML INJ 500 ML IV ONE (12:00)
[2017-09-06] MEDS ORDERED: ePHEDrine/NS 25 MG/5 ML SYRINGE IV ONE (12:00)
[2017-09-06] MEDS ORDERED: LACTATED RINGER'S 1000 ML INJ 3,000 ML IV ONE (12:00)
[2017-09-06] MEDS ORDERED: GLYCOPYRROLATE 0.2 MG/ML VIAL IV ONE (12:00)
[2017-09-06] MEDS ORDERED: VECURONIUM BROMIDE 20 MG VIAL IV ONE (12:00)
[2017-09-06] MEDS ORDERED: CALCIUM CHLORIDE 10% SOLN 1 GRAM/10 ML SYR IV ONE (12:00)
[2017-09-06] MEDS ORDERED: PHENYLEPH/NS 1000 MCG/10 ML SYR IV ONE (12:00)
[2017-09-06] MEDS ORDERED: AMINOCAPROIC ACID INJ 250 MG/ML 20 ML VIAL IV ONE (12:00)
[2017-09-06] MEDS ORDERED: PHENYLEPHRINE HCL 10 MG/ML VIAL IV ONE (12:00)
[2017-09-06] MEDS ORDERED: NS 500 ML (EXCEL BAG) INJ 500 ML IV ONE (12:00)
[2017-09-06] MEDS ORDERED: PROTAMINE SULFATE 250 MG/25 ML VIAL IV ONE (12:00)
[2017-09-06] MEDS ORDERED: HEPARIN SODIUM - SQ 10,000 UNITS/ML VIAL SQ ONE (12:00)
[2017-09-06] MEDS ORDERED: DEXMEDETOMIDINE HCL 200 MCG/2 ML VIAL IV ONE (12:00)
[2017-09-06] MEDS ORDERED: NEOSTIGMINE METHYLSULFATE 10 MG/10 ML VIAL IV PUSH ONE (12:00)
[2017-09-06] MEDS ORDERED: NITROGLYCERIN 50 MG/DEXTROSE 5% SOLN 250 ML BTL IV ONE (12:00)
[2017-09-06] MEDS ORDERED: MAGNESIUM SULFATE 1 GM/2 ML VIAL IV ONE (12:00)
[2017-09-06] MEDS ORDERED: AMIODARONE HCL 150 MG/3 ML VIAL IV ONE (12:00)
[2017-09-06] MEDS ORDERED: POTASSIUM CHLOR 40 MEQ PREMIX 100 ML ONE (13:56)
[2017-09-06] MEDS ORDERED: LACTATED RINGER'S 1000 ML INJ 500 ML IV PRN (14:10)
[2017-09-06] MEDS ORDERED: Post-op Orders (for Pharmacy) OTHER ONE (14:15)
[2017-09-06] MEDS ORDERED: RESP: ALBUTEROL 2.5 MG/IPRATROPIUM 0.5 MG NEB (PRN) NEB (14:15)
[2017-09-06] MEDS ORDERED: hydrALAZINE HCL 20 MG/ML VIAL IV PUSH PRN (14:15)
[2017-09-06] MEDS ORDERED: CALCIUM CHLORIDE INJ 1 GM in SODIUM CHLORIDE 0.9% INJ 100 ML IV PRN (14:15)
[2017-09-06] MEDS ORDERED: METOPROLOL TARTRATE 5 MG/5 ML VIAL IV PUSH PRN (14:15)
[2017-09-06] MEDS ORDERED: INSULIN REGULAR (IV INFUSION) 100 UNITS in SODIUM CHLORIDE 0.9% INJ 99 ML IV PRN (14:15)
[2017-09-06] MEDS ORDERED: SODIUM BICARBONATE 8.4% SOLN 50 MEQ/50 ML VIAL IV PUSH PRN ×2 (14:15)
[2017-09-06] MEDS ORDERED: ALBUMIN 5% INJ 250 ML IV PRN (14:15)
[2017-09-06] MEDS ORDERED: ONDANSETRON HCL 4 MG/2 ML VIAL IV PUSH PRN (14:15)
[2017-09-06] MEDS ORDERED: MAGNESIUM SULFATE INJ 2 GM in SODIUM CHLORIDE 0.9% INJ 100 ML IV PRN ×4 (14:15)
[2017-09-06] MEDS ORDERED: CALCIUM CHLORIDE 10% 1 GRAM/10 ML VIAL IV PUSH PRN (14:15)
[2017-09-06] MEDS ORDERED: CLEVIDIPINE INJ 50 ML IV PRN (14:15)
[2017-09-06] MEDS ORDERED: ACETAMINOPHEN 325 MG TAB PO PRN (14:15)
[2017-09-06] MEDS ORDERED: POTASSIUM CHLORIDE 20 MEQ CONTROLLED RELEASE TAB PO PRN ×2 (14:15)
[2017-09-06] MEDS ORDERED: DEXMEDETOMIDINE INJ 200 MCG in SODIUM CHLORIDE 0.9% INJ 50 ML IV PRN (14:15)
[2017-09-06] MEDS ORDERED: DEXTROSE 50% IN WATER 50 ML VIAL(D50) IV PUSH PRN (14:15)
[2017-09-06] MEDS ORDERED: POTASSIUM CHLOR 20 MEQ PREMIX 100 ML IV PRN ×2 (14:15)
[2017-09-06] MEDS ORDERED: ACETAMINOPHEN 650 MG SUPP RECTAL PRN (14:15)
[2017-09-06] MEDS ORDERED: RESP: RACEPINEPHRINE 2.25% 0.5 ML NEB NEB PRN (14:15)
--- NOTE | 2017-09-06 14:34 | PD.OP ---
cc: Denny Carrillo MD; Mar Mensah MD; Mimi Pickett MD; Melvin Ceballos MD; Delphien Shell MD Operative Report Date of Surgery: Sep 06, 2017 Preoperative Diagnosis: (1) Aortic insufficiency (2) Ascending aortic aneurysm (3) CHF (congestive heart failure) Postoperative Diagnosis: same Procedure: Aortic root replacement with a 25 [employer] [place]hoi valve conduit FRANKI Resection and grafting ascending thoracic aortic aneurysm Anesthesia: Dr. Cool Surgeon: Mimi Pickett 911 Emergency Services Dispatcher(s): Dr. Mc Snyder Operation and Findings: Indications: The patient is an 47yo male with severe aortic insufficiency and aneurismal 6cm root and ascending aorta Drains: mediastinal x 2 Specimens: aortic wall, aortic valve leaflets Implants: 25 St. Khoi mechanical valve conduit Complications: none Disposition: to CVICU in stable condition Procedure Details The risks, benefits, complications, treatment options, and expected outcomes were discussed with the patient. The possibilities of reaction to medication, pulmonary aspiration, perforation of viscus, bleeding, recurrent infection, the need for additional procedures, failure to diagnose a condition, and creating a complication requiring transfusion or operation were discussed with the patient. The patient concurred with the proposed plan, giving informed consent. The site of surgery properly noted/marked. The patient was taken to Operating Room, identified as Casimiro Cavanaugh and the procedure verified as Aortic root replacement with repair of the ascending aortic aneurysm, FRANKI. A Time Out was held and the above information confirmed. Cross-clamp time 145 minutes Cardiopulmonary bypass time 182 minutes Drains 36 Nigerian mediastinum and 24 Nigerian Haroon pericardial tubes Findings: The patient had a trileaflet aortic valve with severe AI. The root and ascending aorta were aneurismal up to the arch. At the conclusion of the procedure, intraoperative FRANKI showed a well-seated aortic valve with no perivalvular leaks. Left ventricular function was normal. Disposition: The patient was transferred to the CVICU in stable, but guarded condition. Operation in detail: After adequate general anesthesia, the patient was prepped and draped in the usual manner. A median sternotomy was performed and electrocautery was used to obtain hemostasis. The pericardium was opened and the patient was heparinized for cardiopulmonary bypass. The heart was instrumented for cardiopulmonary bypass in the usual manner. Antegrade and Custodiol cardoplegia was used and dosed every 75- 80minutes. The ascending aorta and arch were dissected out. There was significant inflammation and fibrosis between the aorta and pulmonary artery making dissection difficult. The left ventricle was vented through the right superior pulmonary vein. The patient was placed on cardiopulmonary bypass. An aortic cross-clamp was applied and the heart was arrested using cold Custodiol antegrade cardioplegia was administered following which the aorta was vented and opened above the sinotubular ridge Handheld cannula was then used to give cardioplegia down each coronary ostia. The valve was found to be trileaflet with minimal calcification. The aortic root was aneurysmal from the sinuses of Valsalva the proximal arch. Aortic valve was excised sharply and the annulus copiously irrigated with cold saline. The aorta was transected above the sinotubular junction distally and resected down to the aortic annulus. The coronary arteries were taken as Carrel buttons and carefully protected. The annulus was sized to a 25 [place]i mechanical valve conduit which was seated using several interrupted 2-0 Tycron pledgeted horizontal mattress sutures onto the annulus. After seating the valve and securing the sutures, an eye cautery unit was used to make an opening in the graft to locate the left main coronary artery button. The left coronary artery was approximated to the graft using a running 5-0 prolene. The graft was measured for length and transected. The distal graft was beveled to accommodate the hemiarch . The distal anastomosis was accomplished using a running 4-0 prolene suture. Antegrade cardioplegia was administered to check these anastomoses for hemostasis. Pledgeted 4-0 prolene sutures were used as necessary to control bleeding. An opening was then made in the graft anteriorly to locate the right coronary button. This was approximated to the graft using a running 5-0 prolene suture. Bioglue was used to seal needle holes. The patient was placed in steep Trendelenburg position. The aorta and left ventricle were vented and the aortic cross-clamp was removed for a total cross- clamp time of 145 minutes. The heart resumed a bradycardic rhythm which eventually converted to a sinus rhythm after several minutes. The heart was filled allowed to eject. The aortic valve replacement was then assessed by intraoperative FRANKI. The valve was found to be well seated with no perivalvular leak. Left ventricular function was noted to be normal. The patient was weaned from cardiopulmonary bypass for total bypass run of 182 minutes. Protamine was administered to reverse the heparin and all cannulae were removed without incident. A 36 Nigerian mediastinal/ 24 Nigerian Haroon pericardial tubes were positioned and each was secured to the skin with a 0 silk suture. The operative field was then examined again for hemostasis which was obtained using electrocautery. The wound was then closed in layers by approximating the sternal tables with interrupted number 6 stainless steel wires following which the presternal fashion was approximately around a 1. PDS suture. The wound was copiously irrigated. The subcutaneous tissue was approximated using a running 2- 0 Vicryl suture and the skin was approximated with running 4-0 Monocryl subcuticular stitch. All sponge and instrument counts were correct at the close of the procedure and the patient was transported the CVICU in stable, but guarded condition. Mimi Pickett M.D., F.A.C.C., F.A.C.S. Mimi Pickett MD Sep 06, 2017 14:34
[2017-09-06] MEDS ORDERED: fentaNYL CITRATE 1000 MCG/20 ML VIAL ONE (15:01)
[2017-09-06] MEDS ORDERED: MIDAZOLAM HCL 2 MG/2 ML VIAL ONE ×2 (15:01→15:04)
[2017-09-06] MEDS: ACETAMINOPHEN 1000 MG/100 ML 100 ML IV SCH ×2 (15:37→19:43)
--- NOTE | 2017-09-06 16:09 | RADRPT ---
EXAM DATE/TIME: 09/06/2017 15:09 [facility] COMPARISON: CHEST SINGLE AP, July 12, 2016, 9:33. INDICATIONS : Status post median sternotomy with heart valve replacement and intubation.. MEDICAL HISTORY : Cardiovascular disease. Hypertension. SURGICAL HISTORY : Appendectomy. ENCOUNTER: Subsequent ACUITY: 2 days PAIN SCORE: 0/10 LOCATION: Bilateral chest FINDINGS: A single AP portable semierect view the chest was obtained and demonstrates the patient is status pos t interval median sternotomy. An artificial heart valve is present. The endotracheal tube is in place with the tip approximately 1 cm above the shaina. A nasogastric tube is in place with the tip in the proximal stomach. Heart size remains moderately enlarged with no confluent infiltrates or effusions. CONCLUSION: 1. Status post median sternotomy with artificial heart valve in place. 2. Status post intubation with the endotracheal tube tip 1 cm above the shaina. 3. Placement of nasogastric tube into the proximal stomach. 4. Moderate cardiomegaly again noted. Murray Lehman MD on September 06, 2017 at 16:07 Board Certified Radiologist. This report was verified electronically.
[2017-09-06] MEDS: RESP: ALBUTEROL 2.5 MG/IPRATROPIUM 0.5 MG NEB (SCH) NEB ×2 (18:06→21:37)
[2017-09-06] MEDS ORDERED: ceFAZolin 2 GM PREMIX 50 ML IV SCH ×2 (20:00)
[2017-09-06] MEDS: ceFAZolin 2 GM PREMIX 50 ML IV SCH (20:00)
[2017-09-06] MEDS ORDERED: SODIUM CHLORIDE 0.9% FLUSH 10 ML FLUSH IV FLUSH SCH (21:00)
[2017-09-06] MEDS: ATORVASTATIN 80 MG TAB PO SCH (22:03)
[2017-09-06] MEDS: AMIODARONE 200 MG TAB PO SCH (22:03)
[2017-09-07] VITALS (17 sets, daily range): BP systolic 111–131; BP diastolic 67–80; PULSE 90–98; RESP 16–20; TEMP 97.7–100.9; O2SAT 94–98
[2017-09-07] MEDS: ACETAMINOPHEN 1000 MG/100 ML 100 ML IV SCH ×2 (02:24→08:05)
[2017-09-07] MEDS: RESP: ALBUTEROL 2.5 MG/IPRATROPIUM 0.5 MG NEB (SCH) NEB ×3 (03:42→21:22)
[2017-09-07 04:28] LABS: HEMATOCRIT 36.4 % (39.0-51.0); HEMOGLOBIN 12.6 GM/DL (13.0-17.0); MEAN CORPUSCULAR HEMOGLOBIN 29.7 PG (27.0-34.0); MEAN CORPUSCULAR HGB CONC 34.6 % (32.0-36.0); MEAN PLATELET VOLUME 8.1 FL (7.0-11.0); PLATELET COUNT 174 TH/MM3 (150-450); RED BLOOD COUNT 4.23 MIL/MM3 (4.50-5.90); RED CELL DISTRIBUTION WIDTH 14.1 % (11.6-17.2); WHITE BLOOD COUNT 20.9 TH/MM3 (4.0-11.0)
[2017-09-07] MEDS: ceFAZolin 2 GM PREMIX 50 ML IV SCH ×3 (04:52→20:31)
[2017-09-07 05:00] LABS: BICARBONATE 27.3 MEQ/L (21.0-32.0); CALCIUM 8.8 MG/DL (8.5-10.1); CREATININE 1.49 MG/DL (0.60-1.30); MAGNESIUM 1.9 MG/DL (1.5-2.5)
--- NOTE | 2017-09-07 05:44 | RADRPT ---
EXAM DATE/TIME: 09/07/2017 04:34 [facility] COMPARISON: CHEST SINGLE AP, September 06, 2017, 15:09. INDICATIONS : Post CABG, short of breath. MEDICAL HISTORY : Cardiovascular disease. Hypertension. SURGICAL HISTORY : Appendectomy. ENCOUNTER: Subsequent ACUITY: 1 week PAIN SCORE: 0/10 LOCATION: Bilateral chest FINDINGS: Patient has been extubated with ET tube removed. Cardiac silhouette remains enlarged with mild inters titial prominence. Remainder of exam is unchanged. CONCLUSION: 1. Status post extubation with removal of NGT. 2. Cardiomegaly with mild positive fluid balance. 3. No significant pneumothorax. Jose Salcido MD on September 07, 2017 at 5:42 Board Certified Radiologist. This report was verified electronically.
[2017-09-07] MEDS: AMIODARONE 200 MG TAB PO SCH ×3 (05:56→21:50)
[2017-09-07] MEDS: POTASSIUM CHLOR 20 MEQ PREMIX 100 ML IV PRN ×2 (05:56→08:05)
[2017-09-07] MEDS: PANTOPRAZOLE SOD 40 MG DELAYED RELEASE TAB PO SCH (05:56)
[2017-09-07] MEDS: ASPIRIN 81 MG CHEW TAB PO SCH (08:05)
[2017-09-07] MEDS ORDERED: SOD PHOSPHATE/SOD BIPHOSPHATE (ADULT) ENEMA 133ML RECTAL PRN (08:45)
[2017-09-07] MEDS ORDERED: BISACODYL 10 MG SUPP RECTAL PRN (08:45)
[2017-09-07] MEDS ORDERED: GLUCAGON 1 MG/ML VIAL OTHER PRN (08:45)
[2017-09-07] MEDS ORDERED: DEXTROSE 50% IN WATER 50 ML VIAL(D50) IV PUSH PRN (08:45)
[2017-09-07] MEDS ORDERED: ASPIRIN 81 MG CHEW TAB CHEW SCH (09:00)
[2017-09-07] MEDS: MAGNESIUM HYDROXIDE SUSP 30 ML CUP PO SCH (09:00)
[2017-09-07] MEDS: INSULIN ASPART SUPPLEMENTAL SCALE SQ SCH ×4 (10:00→21:54)
--- NOTE | 2017-09-07 10:03 | PD.CAR.PN ---
CVT Progress Note Subjective/Hospital Course: 47/ male ,seen in ED for abdominal pain and chest discomfort, seen and eval by Dr Singh, cardiac cath was planned , found to have severe Aortic insufficiency , and found to have a large ascending thoracic aneurysm (6cm root) , was also hypertensive and developed a hematoma post. He was treated for HTN, HLP electively admitted surgery : 09/06 Aortic root replacement with a 25 St[address] K[employer]i mechanical valve conduit FRANKI Resection and grafting ascending thoracic aortic aneurysm crystalloid 3800cc, cell saver 750cc, PLT 186cc 09/07 Bp well maintained post op SBP<120, now ok to allow <140SBP started on BB , will slowly re-add home meds as needed OOB, ambulate, chest tubes drained 290cc/ 12 hrs will transfer to stepdown hold on diuresing with Creatinine 1.49 Objective: Vital Signs Date Time Temp Pulse Resp B/P (MAP) Pulse Ox O2 Delivery O2 Flow Rate FiO2 09/07/17 07:00 96 09/07/17 07:00 99.3 96 20 111/77 (88) 97 128/67 (87) 09/07/17 07:00 97 Nasal Cannula 2.00 09/07/17 03:03 97.7 90 16 120/76 (91) 97 131/74 (93) 09/07/17 03:03 97 Nasal Cannula 2.00 09/07/17 03:03 90 09/07/17 02:25 89 145/78 09/06/17 23:10 98 Nasal Cannula 2.00 09/06/17 23:10 97.7 91 16 117/79 (92) 98 133/77 (95) 09/06/17 23:10 90 09/06/17 21:37 97 Nasal Cannula 2.00 09/06/17 19:21 97.6 87 16 120/82 (95) 97 120/75 (90) 09/06/17 19:21 97 Nasal Cannula 2.00 09/06/17 19:00 88 09/06/17 18:07 97 2.00 09/06/17 16:40 97 Nasal Cannula 3.00 09/06/17 16:35 98 Nasal Cannula 4.00 09/06/17 16:35 97 Nasal Cannula 3 09/06/17 15:00 60 09/06/17 15:00 70 09/06/17 15:00 98.3 67 17 102/62 (75) 94 115/60 (78) 09/06/17 14:50 95 60 Labs: Laboratory Tests Test 09/07/17 04:15 White Blood Count 20.9 TH/MM3 (4.0-11.0) Red Blood Count 4.23 MIL/MM3 (4.50-5.90) Hemoglobin 12.6 GM/DL (13.0-17.0) Hematocrit 36.4 % (39.0-51.0) Mean Corpuscular Volume 86.0 FL (80.0-100.0) Mean Corpuscular Hemoglobin 29.7 PG (27.0-34.0) Mean Corpuscular Hemoglobin Concent 34.6 % (32.0-36.0) Red Cell Distribution Width 14.1 % (11.6-17.2) Platelet Count 174 TH/MM3 (150-450) Mean Platelet Volume 8.1 FL (7.0-11.0) Blood Urea Nitrogen 24 MG/DL (7-18) Creatinine 1.49 MG/DL (0.60-1.30) Random Glucose 83 MG/DL (74-106) Calcium Level 8.8 MG/DL (8.5-10.1) Magnesium Level 1.9 MG/DL (1.5-2.5) Sodium Level 141 MEQ/L (136-145) Potassium Level 3.3 MEQ/L (3.5-5.1) Chloride Level 106 MEQ/L (98-107) Carbon Dioxide Level 27.3 MEQ/L (21.0-32.0) Anion Gap 8 MEQ/L (5-15) Estimat Glomerular Filtration Rate 62 ML/MIN (>89) Result Diagram: 09/07/1741409/07/17414 Telemetry: NSR, no acute changes (1) Aortic insufficiency (2) CHF (congestive heart failure) Plan: eval for diuresis in am + 3kg (3) Ascending aortic aneurysm (4) s/p AVR and root conduit Plan: will leave chest tubes in OOB pulm toileting re-add BP meds Mag and K+ replaced CM to eval for HHC at discharge check PT/INR in am for anticoagulation (5) AILYN (acute kidney injury) Plan: creatinine 1.49 baseline 1.35 (6) Hypertension Plan: add , BB slowly re-add home meds Kirti Craft Sep 07, 2017 10:03
[2017-09-07] MEDS: METOPROLOL TARTRATE 25 MG TAB PO SCH ×2 (10:04→21:49)
[2017-09-07] MEDS: MULTIVITAMINS/MINERALS THERAPEUTIC TAB PO SCH (10:05)
--- NOTE | 2017-09-07 10:12 | HHI.FF ---
Face to Face Verification Diagnosis: (1) Aortic insufficiency (2) CHF (congestive heart failure) (3) Ascending aortic aneurysm (4) AILYN (acute kidney injury) (5) s/p AVR and root conduit (6) Hypertension Home Health Nursing Order: Medication education-adverse effect Wound care and dressing changes Nursing assessment with vital signs Instructions: Heart and Vascular Surgery patients *Special attention to sternal dressing Mandatory frequency Assess and evaluation, 4 days in a row The next week 3X week 2 times a week for 4 weeks 1 time a week for 5 weeks Schedule Heart and Vascular patients for full 60 day certification period Initial visit Review Open Heart Surgery Discharge Instructions (Sternal precautions, Activity, Elastic hose, Incision care, Driving, Incentive spirometry, Smoking, Capac, Work and other) Need Betadine to paint incision Medication reconciliation Importance of follow up care/ check on appointments Make calendar record temperature daily When to call [facility] nurse, review instructions, phone list Incentive Spirometry, demonstration Visit 1- Begin discharge instruction for patient family and/ or caregiver using teach back method- Signs and symptoms of infection Disease characteristics Medicines and side effects Foods and nutrition/ appetite Infection control/ hand washing/ hygiene Visit 2- Continue teaching Discharge instructions- include additional information on smoking cessation , sternal dressing (sternal vac) Visit 3- Continue teaching- Cough and deep breathing, incision monitoring. Choose my plate Visit 4- Continue teaching- Discuss limitations Discuss how they are feeling Discuss progress toward goals Remaining visits- continue teaching and monitoring PREVENA Single Use Negative Wound Therapy System Caregiver Instruction Sheet 1. A Prevena dressing system was applied to the chest incision during surgery , to promote wound healing. It works via a suction device (negative pressure wound therapy) to remove low to moderate levels of exudate (drainage) and infectious materials. We recommend that the device stay in place for up to seven days, from day of surgery. 2. Day of Surgery___2/ Day of Removal ___/12/26 3. The dressing should only be removed by a health care manager. Please arrange removal of device to coincide with Home Health visit and or with Nursing staff at Rehab 4. If skin reddening or irritation of skin occurs, or excessive drainage, please notify the Cardiovascular Surgeons office at [phone]. 5. Light showering is permissible; however the pump should be disconnected and placed in safe location, where it will not get wet. The dressing should not be exposed to direct spray or submerged in water. No bath tub / shower only. Ensure the end of the tubing attached to the dressing is facing down so that water does not enter the top of the tube. 6. To remove Prevena dressing: press purple button to turn off device / remove the suction. Then disconnect the tubing from the pump. The fixation strips should be stretched away from the skin and the dressing lifted at one corner and peeled back until it has been fully removed. 7. After removal, it is ok to shower daily using liquid dial soap and clean wash cloth, rinse and pat dry, and leave incision open to air dry. For any concerns regarding Prevena dressing, and or wounds, please contact Gay Gonzalez, patient navigator at [phone] or notify the Cardiovascular Surgeons office at [phone]. Incentive spirometry Q1 hr x 10, while awake, also use acapella device hourly whole awake Sternal Breast Bone Precautions: NO pushing or pulling, ( pt must use sternal pillow to support chest with all activities and with coughing ( takes up to 3 months breast bone to heal ) Daily incision care: ok to shower daily, no tub bath. Wash all incisions with liquid dial soap, clean wash cloth to each site, rinse and pat dry. Observe for any signs of infection, such as drainage which is dark yellow, bergman, green or foul smelling. Immediately report to the surgeon any drainage from the chest incision, or legs, and for any abnormal drainage from the chest tube sites. Notify surgeon if any temp >101.5 degrees F. When specialty dressing removed/ or if you do not have one, continue to shower daily as above, then rinse and pat incision dry and paint with betadine daily x 5 days. Allow steri strips to fall off if you have any. Avoid lotions, creams, salves, oils, etc. for the first month Please see attached forms for additional instructions regarding post Open Heart specialty wound vacuum dressings. JODI or Prevena , Dressing to be removed by Nursing staff on __09/13/[address] Pickett patients , please obtain CBC, BMP, PA & Lat CXR in 2 weeks, results to Dr. Pickett ( prescription will be given) ( ) (Tele: [phone]) , Valve replacement pts will need 2decho in 2 weeks with results to Dr. Pickett . 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 Snyder & Dr. Pickett), After Hours / Nights (5pm -8am) Weekends and Holidays Please call [facility] ([facility]) Charge Nurse I have seen patient Casimiro Cavanaugh on 09/07/17. My clinical findings support the need for the requested home health care services because: Deconditioned w/ increased weakness I certify that my clinical findings support that this patient is homebound because: Post-op weakness Kirti Craft Sep 07, 2017 10:12
--- NOTE | 2017-09-07 11:38 | EKG ---
Date Performed: 09/07/2017 Time Performed: 04:58:10 PTAGE: 47 years EKG: Sinus rhythm Left ventricular hypertrophy Abnormal ECG PREVIOUS TRACING : 08/17/2017 13.09 Compared to prior tracing, there is no significant change. DOCTOR: Kavon Singh Interpretating Date/Time 09/07/2017 11:55:17
[2017-09-07] MEDS: oxyCODONE/ACETAMINOPHEN 5 MG/325 MG TAB PO PRN ×2 (13:16→17:46)
[2017-09-07] MEDS: ATORVASTATIN 80 MG TAB PO SCH (21:49)
[2017-09-07] MEDS: DOCUSATE SODIUM 100 MG CAP PO SCH (21:49)
[2017-09-07] MEDS: SENNOSIDES 8.6 MG TAB PO SCH (21:50)
[2017-09-08] VITALS (29 sets, daily range): BP systolic 103–128; BP diastolic 62–80; PULSE 80–100; RESP 18; TEMP 99.7–100.7; O2SAT 93–98
[2017-09-08] MEDS: INSULIN ASPART SUPPLEMENTAL SCALE SQ SCH ×6 (02:00→21:00)
[2017-09-08] MEDS: ceFAZolin 2 GM PREMIX 50 ML IV SCH (04:00)
[2017-09-08 04:48] LABS: AUTOMATED NEUTROPHIL # 14.7 TH/MM3 (1.8-7.7); BASOPHIL % 0.1 % (0.0-2.0); HEMATOCRIT 33.2 % (39.0-51.0); HEMOGLOBIN 11.3 GM/DL (13.0-17.0); LYMPH % 8.7 % (9.0-44.0); LYMPHOCYTE # 1.6 TH/MM3 (1.0-4.8); MEAN CELL VOLUME 87.3 FL (80.0-100.0); MEAN CORPUSCULAR HEMOGLOBIN 29.7 PG (27.0-34.0); MEAN PLATELET VOLUME 8.4 FL (7.0-11.0); MONO % 9.4 % (0.0-8.0); MONOCYTE # 1.7 TH/MM3 (0-0.9); NEUT % 81.8 % (16.0-70.0); PLATELET COUNT 162 TH/MM3 (150-450); RED CELL DISTRIBUTION WIDTH 13.9 % (11.6-17.2)
[2017-09-08 05:00] LABS: INTERNATIONAL NORMALIZED RATIO 1.1 RATIO; PROTHROMBIN TIME - PATIENT 11.4 SEC (9.8-11.6)
[2017-09-08 05:13] LABS: CALCIUM 8.3 MG/DL (8.5-10.1); CREATININE 1.4 MG/DL (0.60-1.30); MAGNESIUM 2.1 MG/DL (1.5-2.5)
[2017-09-08] MEDS: PANTOPRAZOLE SOD 40 MG DELAYED RELEASE TAB PO SCH (06:09)
[2017-09-08] MEDS: AMIODARONE 200 MG TAB PO SCH ×3 (06:09→20:58)
[2017-09-08] MEDS: RESP: ALBUTEROL 2.5 MG/IPRATROPIUM 0.5 MG NEB (SCH) NEB ×3 (07:18→21:08)
[2017-09-08] MEDS: METOPROLOL TARTRATE 25 MG TAB PO SCH ×2 (07:57→20:58)
[2017-09-08] MEDS: MULTIVITAMINS/MINERALS THERAPEUTIC TAB PO SCH (07:58)
[2017-09-08] MEDS: DOCUSATE SODIUM 100 MG CAP PO SCH ×2 (07:58→20:58)
[2017-09-08] MEDS: MAGNESIUM HYDROXIDE SUSP 30 ML CUP PO SCH (07:58)
[2017-09-08] MEDS: ASPIRIN 81 MG CHEW TAB PO SCH (07:58)
[2017-09-08] MEDS: oxyCODONE/ACETAMINOPHEN 5 MG/325 MG TAB PO PRN ×2 (08:02→20:59)
[2017-09-08] MEDS: POLYETHYLENE GLYCOL 17 GM PKG PO SCH (08:02)
[2017-09-08] MEDS ORDERED: POTASSIUM CHLORIDE 20 MEQ CONTROLLED RELEASE TAB PO ONE (09:00)
--- NOTE | 2017-09-08 15:03 | PD.CAR.PN ---
CVT Progress Note Subjective/Hospital Course: 47/ male ,seen in ED for abdominal pain and chest discomfort, seen and eval by Dr Singh, cardiac cath was planned , found to have severe Aortic insufficiency , and found to have a large ascending thoracic aneurysm (6cm root) , was also hypertensive and developed a hematoma post. He was treated for HTN, HLP electively admitted surgery : 09/06 Aortic root replacement with a 25 [address] [employer] mechanical valve conduit FRANKI Resection and grafting ascending thoracic aortic aneurysm crystalloid 3800cc, cell saver 750cc, PLT 186cc 09/07 Bp well maintained post op SBP<120, now ok to allow <140SBP started on BB , will slowly re-add home meds as needed OOB, ambulate, chest tubes drained 290cc/ 12 hrs will transfer to stepdown hold on diuresing with Creatinine 1.49 09/08 chest tube removed without difficulty weaned off 02 low grade temp last night/ instructed to us IS and acapella will start coumadin today goal 2-2.5 Objective: GENERAL: A&O x 3 SKIN: Warm and dry. prevena dressing to chest HEAD: Normocephalic. EYES: No scleral icterus. No injection or drainage. NECK: Supple, trachea midline. No JVD or lymphadenopathy. CARDIOVASCULAR: Regular rate and rhythm without murmurs, gallops, or rubs. RESPIRATORY: Breath sounds equal bilaterally. No accessory muscle use. GASTROINTESTINAL: Abdomen soft, non-tender, nondistended. MUSCULOSKELETAL: No cyanosis, or edema. BACK: Nontender without obvious deformity. No CVA tenderness. Vital Signs Date Time Temp Pulse Resp B/P (MAP) Pulse Ox O2 Delivery O2 Flow Rate FiO2 09/08/17 13:01 80 09/08/17 12:00 82 09/08/17 11:30 96 Nasal Cannula 2.00 09/08/17 11:30 99.8 92 18 113/65 (81) 96 09/08/17 11:00 84 09/08/17 10:00 84 09/08/17 09:00 94 09/08/17 08:01 100.2 95 18 117/72 (87) 96 09/08/17 08:01 96 Nasal Cannula 2.00 09/08/17 08:00 94 09/08/17 07:18 98 Nasal Cannula 2.00 09/08/17 07:01 96 09/08/17 06:00 94 09/08/17 05:00 92 09/08/17 04:00 98 09/08/17 03:00 94 Nasal Cannula 2.00 09/08/17 03:00 99.7 98 128/80 (96) 94 09/08/17 03:00 100 09/08/17 02:04 99 09/08/17 01:06 99 09/08/17 00:00 100 09/07/17 23:00 99.2 95 121/78 (92) 94 09/07/17 23:00 98 09/07/17 23:00 94 Room Air 09/07/17 22:00 98 09/07/17 21:22 96 Nasal Cannula 2.00 09/07/17 21:00 92 09/07/17 20:00 96 09/07/17 19:00 92 09/07/17 19:00 98 Nasal Cannula 2.00 09/07/17 19:00 99.5 94 118/80 (93) 98 09/07/17 18:00 98 09/07/17 17:00 94 09/07/17 16:00 92 09/07/17 15:05 98 Nasal Cannula 2.00 09/07/17 15:04 100.9 93 20 112/74 (87) 98 09/07/17 15:00 90 Labs: Laboratory Tests Test 09/08/17 04:20 White Blood Count 18.0 TH/MM3 (4.0-11.0) Red Blood Count 3.80 MIL/MM3 (4.50-5.90) Hemoglobin 11.3 GM/DL (13.0-17.0) Hematocrit 33.2 % (39.0-51.0) Mean Corpuscular Volume 87.3 FL (80.0-100.0) Mean Corpuscular Hemoglobin 29.7 PG (27.0-34.0) Mean Corpuscular Hemoglobin Concent 34.0 % (32.0-36.0) Red Cell Distribution Width 13.9 % (11.6-17.2) Platelet Count 162 TH/MM3 (150-450) Mean Platelet Volume 8.4 FL (7.0-11.0) Neutrophils (%) (Auto) 81.8 % (16.0-70.0) Lymphocytes (%) (Auto) 8.7 % (9.0-44.0) Monocytes (%) (Auto) 9.4 % (0.0-8.0) Eosinophils (%) (Auto) 0.0 % (0.0-4.0) Basophils (%) (Auto) 0.1 % (0.0-2.0) Neutrophils # (Auto) 14.7 TH/MM3 (1.8-7.7) Lymphocytes # (Auto) 1.6 TH/MM3 (1.0-4.8) Monocytes # (Auto) 1.7 TH/MM3 (0-0.9) Eosinophils # (Auto) 0.0 TH/MM3 (0-0.4) Basophils # (Auto) 0.0 TH/MM3 (0-0.2) CBC Comment DIFF FINAL Differential Comment Prothrombin Time 11.4 SEC (9.8-11.6) Prothromb Time International Ratio 1.1 RATIO Blood Urea Nitrogen 28 MG/DL (7-18) Creatinine 1.40 MG/DL (0.60-1.30) Random Glucose 118 MG/DL (74-106) Calcium Level 8.3 MG/DL (8.5-10.1) Magnesium Level 2.1 MG/DL (1.5-2.5) Sodium Level 137 MEQ/L (136-145) Potassium Level 3.8 MEQ/L (3.5-5.1) Chloride Level 102 MEQ/L (98-107) Carbon Dioxide Level 29.0 MEQ/L (21.0-32.0) Anion Gap 6 MEQ/L (5-15) Estimat Glomerular Filtration Rate 66 ML/MIN (>89) Result Diagram: 09/08/1741909/08/170 Telemetry: NSR (1) Aortic insufficiency (2) CHF (congestive heart failure) Plan: (3) Ascending aortic aneurysm (4) s/p AVR and root conduit Plan: OOB pulm toileting re-add BP meds Mag and K+ replaced CM to eval for HHC at discharge start coumadin (5) AILYN (acute kidney injury) Plan: creatinine 1.49 baseline 1.35 (6) Hypertension Plan: add , BB slowly re-add home meds (7) Leukocytosis Plan: pulm toileting OOB ambulate check cbc in am Kirti Craft Sep 08, 2017 15:03
[2017-09-08] MEDS: WARFARIN SOD 5 MG TAB PO SCH (16:22)
[2017-09-08] MEDS: ATORVASTATIN 80 MG TAB PO SCH (20:58)
[2017-09-08] MEDS: SENNOSIDES 8.6 MG TAB PO SCH (20:58)
[2017-09-09] VITALS (23 sets, daily range): BP systolic 101–112; BP diastolic 59–73; PULSE 77–98; RESP 16; TEMP 99.1–100.3; O2SAT 93–97
[2017-09-09 06:04] LABS: AUTOMATED NEUTROPHIL # 12.2 TH/MM3 (1.8-7.7); BASOPHIL % 0.1 % (0.0-2.0); HEMOGLOBIN 9.9 GM/DL (13.0-17.0); LYMPH % 10.2 % (9.0-44.0); LYMPHOCYTE # 1.6 TH/MM3 (1.0-4.8); MEAN CELL VOLUME 87.5 FL (80.0-100.0); MEAN CORPUSCULAR HEMOGLOBIN 29.9 PG (27.0-34.0); MEAN CORPUSCULAR HGB CONC 34.1 % (32.0-36.0); MEAN PLATELET VOLUME 8.3 FL (7.0-11.0); MONO % 10.4 % (0.0-8.0); MONOCYTE # 1.6 TH/MM3 (0-0.9); NEUT % 79.3 % (16.0-70.0); PLATELET COUNT 133 TH/MM3 (150-450); RED BLOOD COUNT 3.31 MIL/MM3 (4.50-5.90); WHITE BLOOD COUNT 15.3 TH/MM3 (4.0-11.0)
[2017-09-09 06:07] LABS: INTERNATIONAL NORMALIZED RATIO 1.2 RATIO; PROTHROMBIN TIME - PATIENT 11.7 SEC (9.8-11.6)
[2017-09-09] MEDS: PANTOPRAZOLE SOD 40 MG DELAYED RELEASE TAB PO SCH (06:16)
[2017-09-09] MEDS: AMIODARONE 200 MG TAB PO SCH ×3 (06:16→21:02)
[2017-09-09 06:31] LABS: BICARBONATE 28.3 MEQ/L (21.0-32.0); CALCIUM 8.4 MG/DL (8.5-10.1); CREATININE 1.22 MG/DL (0.60-1.30)
--- NOTE | 2017-09-09 06:42 | RADRPT ---
EXAM DATE/TIME: 09/09/2017 05:39 [facility] COMPARISON: CHEST SINGLE AP, September 07, 2017, 4:34. INDICATIONS : Chest tube removal. Evaluate for pneumothorax. MEDICAL HISTORY : Cardiovascular disease. Hypertension. SURGICAL HISTORY : Appendectomy. ENCOUNTER: Subsequent ACUITY: 4 - 6 days PAIN SCORE: Non-responsive. LOCATION: chest FINDINGS: There is consolidation in the left lower lung with loss of delineation of the medial left hemidiaphra gm. The heart is enlarged, stable from prior. Evidence of prior median sternotomy and valve replace ment. The right lung is clear. CONCLUSION: Persistent left lower lung consolidation or atelectasis. The right lung is clear. Guille Vale MD on September 09, 2017 at 6:40 Board Certified Radiologist. This report was verified electronically.
[2017-09-09] MEDS: RESP: ALBUTEROL 2.5 MG/IPRATROPIUM 0.5 MG NEB (SCH) NEB ×3 (07:52→20:33)
[2017-09-09] MEDS: INSULIN ASPART SUPPLEMENTAL SCALE SQ SCH ×4 (08:00→21:00)
[2017-09-09] MEDS: DOCUSATE SODIUM 100 MG CAP PO SCH ×2 (09:00→21:00)
[2017-09-09] MEDS: MAGNESIUM HYDROXIDE SUSP 30 ML CUP PO SCH (09:00)
[2017-09-09] MEDS: POLYETHYLENE GLYCOL 17 GM PKG PO SCH (09:00)
[2017-09-09] MEDS: MULTIVITAMINS/MINERALS THERAPEUTIC TAB PO SCH (09:41)
[2017-09-09] MEDS: METOPROLOL TARTRATE 25 MG TAB PO SCH ×2 (09:41→21:02)
[2017-09-09] MEDS: ASPIRIN 81 MG CHEW TAB PO SCH (09:41)
[2017-09-09] MEDS: oxyCODONE/ACETAMINOPHEN 5 MG/325 MG TAB PO PRN ×2 (13:22→21:03)
--- NOTE | 2017-09-09 14:53 | PD.CAR.PN ---
CVT Progress Note Subjective/Hospital Course: 47/ male ,seen in ED for abdominal pain and chest discomfort, seen and eval by Dr Singh, cardiac cath was planned , found to have severe Aortic insufficiency , and found to have a large ascending thoracic aneurysm (6cm root) , was also hypertensive and developed a hematoma post. He was treated for HTN, HLP electively admitted surgery : 09/06 Aortic root replacement with a 25 [address] mechanical valve conduit FRANKI Resection and grafting ascending thoracic aortic aneurysm crystalloid 3800cc, cell saver 750cc, PLT 186cc 09/07 Bp well maintained post op SBP<120, now ok to allow <140SBP started on BB , will slowly re-add home meds as needed OOB, ambulate, chest tubes drained 290cc/ 12 hrs will transfer to stepdown hold on diuresing with Creatinine 1.49 09/08 chest tube removed without difficulty weaned off 02 low grade temp last night/ instructed to us IS and acapella will start coumadin today goal 2-2.5 09/09 patchy opacity left lower lobe on CXR low grade temp poor cough effort needs aggressive pulm toileting OOB, ambulate INR 1.3/ start lovenox 60mg bid Objective: Vital Signs Date Time Temp Pulse Resp B/P (MAP) Pulse Ox O2 Delivery O2 Flow Rate FiO2 09/09/17 14:03 89 09/09/17 13:48 90 09/09/17 12:00 90 09/09/17 11:45 99.6 89 16 107/60 (76) 97 09/09/17 11:45 83 09/09/17 11:45 97 Room Air 09/09/17 10:46 84 09/09/17 09:00 84 09/09/17 08:45 97 Room Air 09/09/17 08:45 90 09/09/17 08:45 100.3 93 16 101/73 (82) 93 09/09/17 07:53 97 Nasal Cannula 2.00 09/09/17 06:00 80 09/09/17 05:00 88 09/09/17 04:00 86 09/09/17 03:00 99.9 87 110/69 (83) 96 09/09/17 03:00 96 Nasal Cannula 2.00 09/09/17 03:00 84 09/09/17 02:00 86 09/09/17 01:00 82 09/09/17 00:00 80 09/08/17 23:00 80 09/08/17 23:00 99.7 80 103/62 (76) 97 09/08/17 23:00 97 Nasal Cannula 2.00 09/08/17 22:08 16 09/08/17 22:00 94 09/08/17 21:15 93 Nasal Cannula 2.00 09/08/17 21:00 94 09/08/17 20:00 92 09/08/17 19:00 93 Room Air 09/08/17 19:00 92 09/08/17 19:00 100.7 94 110/66 (81) 93 09/08/17 18:01 91 09/08/17 17:00 86 09/08/17 16:00 90 09/08/17 15:01 99.8 84 18 106/62 (77) 95 09/08/17 15:01 95 Nasal Cannula 2.00 09/08/17 15:00 83 Labs: Laboratory Tests Test 09/09/17 04:50 White Blood Count 15.3 TH/MM3 (4.0-11.0) Red Blood Count 3.31 MIL/MM3 (4.50-5.90) Hemoglobin 9.9 GM/DL (13.0-17.0) Hematocrit 29.0 % (39.0-51.0) Mean Corpuscular Volume 87.5 FL (80.0-100.0) Mean Corpuscular Hemoglobin 29.9 PG (27.0-34.0) Mean Corpuscular Hemoglobin Concent 34.1 % (32.0-36.0) Red Cell Distribution Width 14.0 % (11.6-17.2) Platelet Count 133 TH/MM3 (150-450) Mean Platelet Volume 8.3 FL (7.0-11.0) Neutrophils (%) (Auto) 79.3 % (16.0-70.0) Lymphocytes (%) (Auto) 10.2 % (9.0-44.0) Monocytes (%) (Auto) 10.4 % (0.0-8.0) Eosinophils (%) (Auto) 0.0 % (0.0-4.0) Basophils (%) (Auto) 0.1 % (0.0-2.0) Neutrophils # (Auto) 12.2 TH/MM3 (1.8-7.7) Lymphocytes # (Auto) 1.6 TH/MM3 (1.0-4.8) Monocytes # (Auto) 1.6 TH/MM3 (0-0.9) Eosinophils # (Auto) 0.0 TH/MM3 (0-0.4) Basophils # (Auto) 0.0 TH/MM3 (0-0.2) CBC Comment DIFF FINAL Differential Comment Prothrombin Time 11.7 SEC (9.8-11.6) Prothromb Time International Ratio 1.2 RATIO Blood Urea Nitrogen 20 MG/DL (7-18) Creatinine 1.22 MG/DL (0.60-1.30) Random Glucose 96 MG/DL (74-106) Calcium Level 8.4 MG/DL (8.5-10.1) Sodium Level 140 MEQ/L (136-145) Potassium Level 4.1 MEQ/L (3.5-5.1) Chloride Level 103 MEQ/L (98-107) Carbon Dioxide Level 28.3 MEQ/L (21.0-32.0) Anion Gap 9 MEQ/L (5-15) Estimat Glomerular Filtration Rate 78 ML/MIN (>89) Result Diagram: 09/09/1744909/09/17449 Telemetry: NSR (1) Aortic insufficiency (2) CHF (congestive heart failure) Plan: (3) Ascending aortic aneurysm (4) s/p AVR and root conduit Plan: OOB pulm toileting creatinine improved -balance CM to eval for HHC at discharge coumadin + Lovenox / goal INR 2.2.5 (5) AILYN (acute kidney injury) Plan: creatinine 1.49 baseline 1.35 (6) Hypertension Plan: add , BB slowly re-add home meds (7) Leukocytosis Plan: pulm toileting OOB ambulate check cbc in Kirti Nazario Sep 09, 2017 14:53
[2017-09-09] MEDS: ENOXAPARIN SODIUM 60 MG/0.6 ML SYRINGE SQ SCH (16:15)
[2017-09-09] MEDS: WARFARIN SOD 5 MG TAB PO SCH (16:15)
[2017-09-09] MEDS: SENNOSIDES 8.6 MG TAB PO SCH (21:00)
[2017-09-09] MEDS: ATORVASTATIN 80 MG TAB PO SCH (21:02)
[2017-09-10] VITALS (26 sets, daily range): BP systolic 90–119; BP diastolic 55–71; PULSE 76–98; RESP 18–20; TEMP 99.3–100.9; O2SAT 94–97
[2017-09-10] MEDS: ENOXAPARIN SODIUM 60 MG/0.6 ML SYRINGE SQ SCH ×2 (03:33→13:12)
[2017-09-10 05:50] LABS: INTERNATIONAL NORMALIZED RATIO 1.7 RATIO; PROTHROMBIN TIME - PATIENT 17.4 SEC (9.8-11.6)
[2017-09-10] MEDS: AMIODARONE 200 MG TAB PO SCH ×3 (06:12→20:56)
[2017-09-10] MEDS: PANTOPRAZOLE SOD 40 MG DELAYED RELEASE TAB PO SCH (06:12)
[2017-09-10] MEDS: oxyCODONE/ACETAMINOPHEN 5 MG/325 MG TAB PO PRN ×3 (06:12→18:53)
[2017-09-10] MEDS: INSULIN ASPART SUPPLEMENTAL SCALE SQ SCH ×4 (07:29→21:00)
[2017-09-10] MEDS: RESP: ALBUTEROL 2.5 MG/IPRATROPIUM 0.5 MG NEB (SCH) NEB ×3 (08:09→21:16)
[2017-09-10] MEDS: POLYETHYLENE GLYCOL 17 GM PKG PO SCH (08:37)
[2017-09-10] MEDS: ASPIRIN 81 MG CHEW TAB PO SCH (08:37)
[2017-09-10] MEDS: MAGNESIUM HYDROXIDE SUSP 30 ML CUP PO SCH (08:37)
[2017-09-10] MEDS: MULTIVITAMINS/MINERALS THERAPEUTIC TAB PO SCH (08:37)
[2017-09-10] MEDS: DOCUSATE SODIUM 100 MG CAP PO SCH ×2 (08:37→20:55)
[2017-09-10] MEDS: METOPROLOL TARTRATE 25 MG TAB PO SCH ×2 (08:37→20:56)
--- NOTE | 2017-09-10 11:35 | PD.CAR.PN ---
CVT Progress Note CVT: POD #: 4 Subjective/Hospital Course: 47/ male ,seen in ED for abdominal pain and chest discomfort, seen and eval by Dr Singh, cardiac cath was planned , found to have severe Aortic insufficiency , and found to have a large ascending thoracic aneurysm (6cm root) , was also hypertensive and developed a hematoma post. He was treated for HTN, HLP electively admitted surgery : 09/06 Aortic root replacement with a [address] mechanical valve conduit FRANKI Resection and grafting ascending thoracic aortic aneurysm crystalloid 3800cc, cell saver 750cc, PLT 186cc 09/07 Bp well maintained post op SBP<120, now ok to allow <140SBP started on BB , will slowly re-add home meds as needed OOB, ambulate, chest tubes drained 290cc/ 12 hrs will transfer to stepdown hold on diuresing with Creatinine 1.49 09/08 chest tube removed without difficulty weaned off 02 low grade temp last night/ instructed to us IS and acapella will start coumadin today goal 2-2.5 3/ patchy opacity left lower lobe on CXR low grade temp poor cough effort needs aggressive pulm toileting OOB, ambulate INR 1.3/ start lovenox 60mg bid 09/10/17 c/o LLQ, left groin pain since this morning. + BM with adequate appetite, PO intake Objective: Vital Signs Date Time Temp Pulse Resp B/P (MAP) Pulse Ox O2 Delivery O2 Flow Rate FiO2 09/10/17 11:00 79 09/10/17 11:00 99.5 84 20 93/61 (72) 95 09/10/17 10:00 76 09/10/17 09:00 81 09/10/17 08:12 96 21 09/10/17 08:00 83 09/10/17 07:15 99.3 85 20 90/55 (67) 95 09/10/17 07:15 84 09/10/17 06:00 83 09/10/17 05:00 81 09/10/17 04:00 83 09/10/17 03:00 84 09/10/17 03:00 99.8 84 112/71 (85) 96 09/10/17 02:00 86 09/10/17 01:00 80 09/10/17 00:00 80 09/09/17 23:00 99.1 77 106/62 (77) 96 09/09/17 23:00 80 09/09/17 22:16 16 09/09/17 22:00 92 09/09/17 21:00 98 09/09/17 20:00 92 09/09/17 19:00 100.0 94 112/59 (76) 97 09/09/17 19:00 94 09/09/17 18:03 98 09/09/17 17:18 95 09/09/17 15:15 97 Room Air 09/09/17 15:15 99.5 85 16 105/67 (80) 97 09/09/17 15:15 84 09/09/17 14:03 89 09/09/17 13:48 90 09/09/17 12:00 90 09/09/17 11:45 99.6 89 16 107/60 (76) 97 09/09/17 11:45 83 09/09/17 11:45 97 Room Air Labs: Laboratory Tests Test 09/10/17 05:30 Prothrombin Time 17.4 SEC (9.8-11.6) Prothromb Time International Ratio 1.7 RATIO Result Diagram: 09/09/17 0450 09/09/17 0450 Cardiovascular: RRR Telemetry: NSR Pulmonary: CTA GI/: NABS, mild tender over left groin/LLQ Incision: dry and intact Plan: CBC, BMP in AM If he improves and is asymptomatic in AM, plan D/C. Encourage ambulation. (1) Aortic insufficiency (2) CHF (congestive heart failure) Plan: (3) Ascending aortic aneurysm (4) s/p AVR and root conduit Plan: OOB pulm toileting creatinine improved -balance CM to eval for HHC at discharge coumadin + Lovenox / goal INR 2.2.5 (5) AILYN (acute kidney injury) Plan: creatinine 1.49 baseline 1.35 (6) Hypertension Plan: add , BB slowly re-add home meds (7) Leukocytosis Plan: pulm toileting OOB ambulate check cbc in am Mimi Pickett MD Sep 10, 2017 11:35
[2017-09-10] MEDS: WARFARIN SOD 5 MG TAB PO SCH (15:58)
[2017-09-10] MEDS: SENNOSIDES 8.6 MG TAB PO SCH (20:55)
[2017-09-10] MEDS: ATORVASTATIN 80 MG TAB PO SCH (20:56)
[2017-09-11] VITALS (13 sets, daily range): BP systolic 105–115; BP diastolic 60–69; PULSE 79–94; RESP 18–20; TEMP 98.2–98.9; O2SAT 94–98
[2017-09-11] MEDS: ENOXAPARIN SODIUM 60 MG/0.6 ML SYRINGE SQ SCH (01:10)
[2017-09-11] MEDS: PANTOPRAZOLE SOD 40 MG DELAYED RELEASE TAB PO SCH (05:36)
[2017-09-11] MEDS: AMIODARONE 200 MG TAB PO SCH (05:37)
[2017-09-11] MEDS: oxyCODONE/ACETAMINOPHEN 5 MG/325 MG TAB PO PRN (05:44)
[2017-09-11 05:52] LABS: HEMATOCRIT 29.1 % (39.0-51.0); HEMOGLOBIN 9.9 GM/DL (13.0-17.0); MEAN CORPUSCULAR HEMOGLOBIN 29.7 PG (27.0-34.0); MEAN CORPUSCULAR HGB CONC 34.1 % (32.0-36.0); MEAN PLATELET VOLUME 7.8 FL (7.0-11.0); PLATELET COUNT 202 TH/MM3 (150-450); RED BLOOD COUNT 3.34 MIL/MM3 (4.50-5.90); RED CELL DISTRIBUTION WIDTH 14.2 % (11.6-17.2); WHITE BLOOD COUNT 12.2 TH/MM3 (4.0-11.0)
[2017-09-11 06:02] LABS: INTERNATIONAL NORMALIZED RATIO 3.1 RATIO; PROTHROMBIN TIME - PATIENT 30.9 SEC (9.8-11.6)
[2017-09-11 06:18] LABS: BICARBONATE 26.1 MEQ/L (21.0-32.0); CALCIUM 8.2 MG/DL (8.5-10.1); CREATININE 1.22 MG/DL (0.60-1.30)
[2017-09-11] MEDS: INSULIN ASPART SUPPLEMENTAL SCALE SQ SCH ×2 (08:00→12:00)
[2017-09-11] MEDS: POLYETHYLENE GLYCOL 17 GM PKG PO SCH (09:00)
[2017-09-11] MEDS: DOCUSATE SODIUM 100 MG CAP PO SCH (09:00)
[2017-09-11] MEDS: MAGNESIUM HYDROXIDE SUSP 30 ML CUP PO SCH (09:00)
[2017-09-11] MEDS: ASPIRIN 81 MG CHEW TAB PO SCH (09:21)
[2017-09-11] MEDS: METOPROLOL TARTRATE 25 MG TAB PO SCH (09:21)
[2017-09-11] MEDS: MULTIVITAMINS/MINERALS THERAPEUTIC TAB PO SCH (09:21)
[2017-09-11] MEDS: RESP: ALBUTEROL 2.5 MG/IPRATROPIUM 0.5 MG NEB (SCH) NEB (09:54)
[2017-09-11] MEDS ORDERED: PANT40TA3 PO (11:15)
[2017-09-11] MEDS ORDERED: AMIO200T PO (11:15)
[2017-09-11] MEDS ORDERED: DOCU1CAP39 PO (11:15)
[2017-09-11] MEDS ORDERED: OXYC1TAB63 PO (11:15)
[2017-09-11] MEDS ORDERED: WARF-58 PO (11:15)
[2017-09-11] MEDS ORDERED: METO25TA3 PO (11:15)
--- NOTE | 2017-09-11 11:20 | HHI.DS ---
Discharge Summary Admission Date Sep 06, 2017 at 05:23 Discharge Date: Sep 11, 2017 Admitting Diagnosis Ascending thoracic aortic aneurysm Moderate to severe AI HTN (1) Ascending aortic aneurysm Diagnosis: Principal ICD Codes: I71.2 - Thoracic aortic aneurysm, without rupture Status: Chronic (2) Aortic insufficiency Diagnosis: Principal ICD Codes: I35.1 - Nonrheumatic aortic (valve) insufficiency (3) Hypertension Diagnosis: Secondary ICD Codes: I10 - Hypertension Status: Acute Procedures Bentall procedure Brief History 47/ male ,seen in ED for abdominal pain and chest discomfort, seen and eval by Dr Singh, cardiac cath was planned , found to have moderate to severe Aortic insufficiency , and found to have a large ascending thoracic aneurysm (6cm root) , He was treated for HTN, HLP CBC/BMP: 09/11/17 0522 09/11/17 0522 Significant Findings Laboratory Tests Test 09/09/17 04:50 09/10/17 05:30 09/11/17 05:22 White Blood Count 15.3 TH/MM3 (4.0-11.0) 12.2 TH/MM3 (4.0-11.0) Red Blood Count 3.31 MIL/MM3 (4.50-5.90) 3.34 MIL/MM3 (4.50-5.90) Hemoglobin 9.9 GM/DL (13.0-17.0) 9.9 GM/DL (13.0-17.0) Hematocrit 29.0 % (39.0-51.0) 29.1 % (39.0-51.0) Platelet Count 133 TH/MM3 (150-450) Neutrophils (%) (Auto) 79.3 % (16.0-70.0) Monocytes (%) (Auto) 10.4 % (0.0-8.0) Neutrophils # (Auto) 12.2 TH/MM3 (1.8-7.7) Monocytes # (Auto) 1.6 TH/MM3 (0-0.9) Prothrombin Time 11.7 SEC (9.8-11.6) 17.4 SEC (9.8-11.6) 30.9 SEC (9.8-11.6) Blood Urea Nitrogen 20 MG/DL (7-18) Calcium Level 8.4 MG/DL (8.5-10.1) 8.2 MG/DL (8.5-10.1) Estimat Glomerular Filtration Rate 78 ML/MIN (>89) 78 ML/MIN (>89) Imaging Last Impressions Chest X-Ray 09/09/17 0600 Signed Impressions: Service Date/Time: Saturday, September 09, 2017 05:39 - CONCLUSION: Persistent left lower lung consolidation or atelectasis. The right lung is clear. Guille Vale MD PE at Discharge chest - CTA COR - RRR ABD - soft, NT, NABS wound - dry and intact Hospital Course electively admitted surgery : 09/06 Aortic root replacement with a [address] [employer] mechanical valve conduit FRANKI Resection and grafting ascending thoracic aortic aneurysm crystalloid 3800cc, cell saver 750cc, PLT 186cc 09/07 Bp well maintained post op SBP<120, now ok to allow <140SBP started on BB , will slowly re-add home meds as needed OOB, ambulate, chest tubes drained 290cc/ 12 hrs will transfer to stepdown hold on diuresing with Creatinine 1.49 09/08 chest tube removed without difficulty weaned off 02 low grade temp last night/ instructed to us IS and acapella will start coumadin today goal 2-2.5 3/ patchy opacity left lower lobe on CXR low grade temp poor cough effort needs aggressive pulm toileting OOB, ambulate INR 1.3/ start lovenox 60mg bid 09/10/17 c/o LLQ, left groin pain since this morning. + BM with adequate appetite, PO intake 09/11/17 Pain resolved. CBC, BMP unremarkable. Ready for D/C Pt Condition on Discharge: Good Discharge Disposition: Disch w/ Home Health Serv Discharge Instructions DIET: Follow Instructions for: Heart Healthy Diet Activities you can perform: Weight Bearing as Kaylee, Shower Only-No Bath Activities to avoid: Lifting/Bending, Strenuous Activity, Driving Follow up Referrals: Cardiology - 4 Weeks with Kavon Singh MD PCP Follow-up - 2 Weeks with Tristian Rodriguez MD Surgical - 2 Weeks with Kirti Craft New Orders: 2D ECHO - 2 Weeks BASIC METABOLIC PROF - 2 Weeks CBC NO DIFF - 2 Weeks PT/INR - 2-3 Days X-RAY CHEST PA & LAT - 2 Weeks New Medications: Warfarin (Warfarin) 3 Mg Tab 3 MG PO DAILY@1600 for Blood Clot Prevention, #30 TAB 3 Refills Amiodarone (Amiodarone) 200 Mg Tab 200 MG PO BID for Regulate Heart Beat, #28 TAB Docusate Sodium (Dok) 100 Mg Cap 100 MG PO BID for Constipation, #28 CAP Metoprolol Tartrate (Metoprolol Tartrate) 25 Mg Tab 25 MG PO BID for Blood Pressure Management, #60 TAB 3 Refills Oxycodone HCl/Acetaminophen (Oxycodone-Acetaminophen 5-325) 5 Mg-325 Mg Tablet 1 TAB PO Q6HR PRN for PAIN SCALE 1 TO 5, #30 TAB Pantoprazole (Pantoprazole) 40 Mg Tab 40 MG PO DAILY@06 for Prevent Stress Ulcers, #14 TAB Continued Medications: Amlodipine (Norvasc) 10 Mg Tab 10 MG PO DAILY, #60 TAB 3 Refills Aspirin (Aspirin) 81 Mg Chew 81 MG CHEW DAILY, #60 TAB 3 Refills Atorvastatin (Lipitor) 80 Mg Tab 80 MG PO HS, #60 TAB 3 Refills Discontinued Medications: Hydralazine HCl (Hydralazine HCl) 50 Mg Tablet 1 TAB PO QID, #120 TAB 3 Refills Hydrochlorothiazide (Hydrochlorothiazide) 25 Mg Tab 25 MG PO DAILY, #60 TAB 3 Refills Lisinopril (Lisinopril) 40 Mg Tab 40 MG PO DAILY for Blood Pressure Management, #60 TAB 3 Refills Metoprolol Tartrate (Lopressor) 50 Mg Tab 50 MG PO BID, #60 TAB Mimi Pickett MD Sep 11, 2017 11:20
[2017-09-11] MEDS ORDERED: WARFARIN SOD 3 MG TAB PO SCH (16:00)
== END 2017-09-11 13:00 | disposition home health service (06) | DRG 220 ==
LOC: HSDI 09-06 05:23 → HCVI 09-06 14:48 → HCPC 09-07 12:25
PROVIDERS: ADMIT Thoracic Surgery (Cardiothoracic Vascular Surgery); ATTEND Thoracic Surgery (Cardiothoracic Vascular Surgery)
PROC: B246ZZ4 Ultrasonography of Right and Left Heart, Transesophageal (ICD-10-PCS; 2017-09-06)
PROC: 5A1221Z Performance of Cardiac Output, Continuous (ICD-10-PCS; 2017-09-06)
PROC: 6A550Z2 Pheresis of Platelets, Single (ICD-10-PCS; 2017-09-06)
PROC: 0T9B70Z Drainage of Bladder with Drainage Device, Via Natural or Artificial Opening (ICD-10-PCS; 2017-09-06)
PROC: 02RF0JZ Replacement of Aortic Valve with Synthetic Substitute, Open Approach (ICD-10-PCS; principal; 2017-09-06 07:33)
PROC: 02QX0ZZ Repair Thoracic Aorta, Ascending/Arch, Open Approach (ICD-10-PCS; 2017-09-06 07:33)
DX: I35.1 Nonrheumatic aortic (valve) insufficiency (principal); I71.2 Thoracic aortic aneurysm, without rupture; N17.9 Acute kidney failure, unspecified; I50.9 Heart failure, unspecified; I11.0 Hypertensive heart disease with heart failure; E78.5 Hyperlipidemia, unspecified; D72.829 Elevated white blood cell count, unspecified; R10.32 Left lower quadrant pain
CPT/HCPCS: 36430; 71045; 76937; 80048; 82948; 83735; 85014; 85025; 85027; 85610; 86850; 86900; 86901; 86920; 88305; 88311; 93005; 93318; 94002; 94150; 94640; 94664; 94667; 94668; C1769; C9248; J0131; J0282; J0461; J0690; J1644; J1650; J1815; J1817; J2150; J2250; J2370; J2710; J2720; J2930; J3010; J3370; J3475; J3480; J7040; J7050; J7120; P9016; P9035; P9047

== ENCOUNTER 2017-09-15 12:58 | Inpatient (IN) | payer OTHER ==
[~2017-09-15] VITALS: Ht 172.7 cm; Wt 118.0 kg
[2017-09-15] VITALS (9 sets, daily range): BP systolic 108–134; BP diastolic 68–89; PULSE 60–132; RESP 16–24; TEMP 98.4–98.6; O2SAT 95–100
[~2017-09-15 12:58] MED LIST changes: +AMIO200T PO; +DOCU1CAP39 PO; -HYDR-3800 PO; -HYDR25TA5 PO; -LISI40TA PO; -METO-309 PO; +METO25TA3 PO; +OXYC1TAB63 PO; +PANT40TA3 PO; +WARF-58 PO
[2017-09-15] MEDS ORDERED: IOHEXOL 350 MG/ML 10 ML VIAL (for RAD DIAG) IVCONTRAST ONE (12:59)
[2017-09-15] MEDS ORDERED: DILTIAZEM HCL 25 MG/5 ML VIAL IV PUSH ONE (13:30)
[2017-09-15] MEDS ORDERED: SODIUM CHLORIDE 0.9% FLUSH 10 ML FLUSH IVF PRN (13:30)
[2017-09-15 13:43] LABS: AUTOMATED NEUTROPHIL # 12.7 TH/MM3 (1.8-7.7); BASOPHIL # 0.1 TH/MM3 (0-0.2); BASOPHIL % 0.4 % (0.0-2.0); EOSINOPHIL # 0.1 TH/MM3 (0-0.4); EOSINOPHIL % 0.7 % (0.0-4.0); HEMATOCRIT 31.5 % (39.0-51.0); HEMOGLOBIN 10.9 GM/DL (13.0-17.0); LYMPH % 14.4 % (9.0-44.0); LYMPHOCYTE # 2.4 TH/MM3 (1.0-4.8); MEAN CELL VOLUME 87.1 FL (80.0-100.0); MEAN CORPUSCULAR HEMOGLOBIN 30.1 PG (27.0-34.0); MEAN CORPUSCULAR HGB CONC 34.5 % (32.0-36.0); MONO % 8.7 % (0.0-8.0); MONOCYTE # 1.5 TH/MM3 (0-0.9); NEUT % 75.8 % (16.0-70.0); PLATELET COUNT 397 TH/MM3 (150-450); RED BLOOD COUNT 3.61 MIL/MM3 (4.50-5.90); RED CELL DISTRIBUTION WIDTH 13.9 % (11.6-17.2); WHITE BLOOD COUNT 16.8 TH/MM3 (4.0-11.0)
[2017-09-15] MEDS ORDERED: MORPHINE SULFATE 4 MG/ML INJ IV PUSH ONE (13:45)
--- NOTE | 2017-09-15 13:54 | RADRPT ---
EXAM DATE/TIME: 09/15/2017 13:38 [facility] COMPARISON: CHEST SINGLE AP, September 09, 2017, 5:39. INDICATIONS : Short of breath, chest pain MEDICAL HISTORY : Cardiovascular disease. Hypertension. SURGICAL HISTORY : CABG. Appendectomy. ENCOUNTER: Initial ACUITY: 1 day PAIN SCORE: 9/10 LOCATION: Bilateral chest FINDINGS: A single view of the chest demonstrates the lungs to be symmetrically aerated without evidence of mas s, infiltrate or effusion. The heart size is diffusely enlarged but stable compared to the prior levon dy. There is evidence of previous cardiothoracic surgery. CONCLUSION: The previously noted left lower lung infiltrate has resolved. No focal or acute pulmonary infiltrates . Stable cardiomegaly. Chris Driscoll MD on September 15, 2017 at 13:52 Board Certified Radiologist. This report was verified electronically.
[2017-09-15 13:55] LABS: INTERNATIONAL NORMALIZED RATIO 2.2 RATIO; PROTHROMBIN TIME - PATIENT 22.7 SEC (9.8-11.6)
[2017-09-15 14:02] LABS: ALT (GPT) 56 U/L (12-78); AST (GOT) 65 U/L (15-37); BICARBONATE 24.4 MEQ/L (21.0-32.0); BLOOD UREA NITROGEN 21 MG/DL (7-18); CALCIUM 9.1 MG/DL (8.5-10.1); CHLORIDE 105 MEQ/L (98-107); CREATININE 1.47 MG/DL (0.60-1.30); GLOMERULAR FILTRATION RATE 63 ML/MIN (>89); GLUCOSE,RANDOM 90 MG/DL (74-106); SODIUM (NA) 139 MEQ/L (136-145)
[2017-09-15 14:06] LABS: ALKALINE PHOSPHATASE 114 U/L (45-117); TOTAL BILIRUBIN ADULT 0.7 MG/DL (0.2-1.0); TOTAL PROTEIN 8.1 GM/DL (6.4-8.2); TROPONIN I 0.21 NG/ML (0.02-0.05)
--- NOTE | 2017-09-15 15:24 | PD ---
HPI Chief Complaint: Cardiac Complaint Time Seen by Provider: 13:28 Travel History International Travel<30 days: No Contact w/Intl Traveler<30days: No Traveled to known affect area: No History of Present Illness HPI Patient is a 47 year old male who comes in from the resident's clinic due to afib with RVR. He was just discharged 4 days ago after having surgical correction of his aortic aneurysm. He says he has been having back pain that seems to be worse today. He denies any chest pain. He has noticed he is feeling SOB today. He has not felt as if his heart was racing. He does have a history of afib, and reports compliance with his medications. He reports increased cough, productive of mucus. He denies fever or chills. He denies leg swelling or pain. Severity is moderate. PFSH Past Medical History Hx Anticoagulant Therapy: Yes Arthritis: No Anxiety: No Depression: No Heart Rhythm Problems: No Cancer: No Cardiovascular Problems: Yes High Cholesterol: No Chest Pain: Yes Congestive Heart Failure: No Cerebrovascular Accident: Yes (2006) Diabetes: No Diminished Hearing: No Endocrine: No Genitourinary: No Hepatitis: No Hypertension: Yes Immune Disorder: No Musculoskeletal: Yes Neurologic: Yes Psychiatric: No Reproductive: No Respiratory: No Thyroid Disease: No Past Surgical History Abdominal Surgery: Yes (appendectomy) AICD: No Appendectomy: Yes (1985) Cardiac Surgery: No Ear Surgery: No Endocrine Surgery: No Eye Surgery: No Genitourinary Surgery: No Gynecologic Surgery: No Joint Replacement: No Oral Surgery: No Pacemaker: No Thoracic Surgery: No Other Surgery: Yes Social History Alcohol Use: Yes (QUIT YEARS AGO) Tobacco Use: No (QUIT) Substance Use: No Allergies-Medications (Allergen,Severity, Reaction): Coded Allergies: No Known Allergies (Verified Allergy, Unknown, 09/06/17) Reported Meds & Prescriptions Reported Meds & Active Scripts Active Warfarin 3 Mg Tab 3 Mg PO DAILY@1600 Amiodarone (Amiodarone HCl) 200 Mg Tab 200 Mg PO BID Pantoprazole (Pantoprazole Sodium) 40 Mg Tab 40 Mg PO DAILY@06 Dok (Docusate Sodium) 100 Mg Cap 100 Mg PO BID Oxycodone-Acetaminophen 5-325 (Oxycodone HCl/Acetaminophen) 5 Mg-325 Mg Tablet 1 Tab PO Q6HR PRN Metoprolol Tartrate 25 Mg Tab 25 Mg PO BID Lipitor (Atorvastatin Calcium) 80 Mg Tab 80 Mg PO HS Norvasc (Amlodipine Besylate) 10 Mg Tab 10 Mg PO DAILY Aspirin 81 Mg Chew 81 Mg CHEW DAILY Review of Systems Except as stated in HPI: all other systems reviewed are Neg General / Constitutional: No: Fever, Chills Eyes: No: Blurred Vision HENT: No: Headaches, Lightheadedness Cardiovascular: No: Chest Pain or Discomfort Respiratory: Positive: Cough, Shortness of Breath Gastrointestinal: No: Nausea Musculoskeletal: Positive: Pain Skin: No Rash, No Change in Pigmentation Neurologic: No: Weakness, Dizziness Physical Exam Narrative GENERAL: Awake and alert, in no acute distress. SKIN: Focused skin assessment warm/dry. Surgical wound to the chest is healing well, no signs of infection. HEAD: Atraumatic. Normocephalic. EYES: Pupils equal and round. No scleral icterus. No injection or drainage. ENT: No nasal bleeding or discharge. Mucous membranes pink and moist. NECK: Trachea midline. No JVD. CARDIOVASCULAR: tachycardia. No murmur appreciated. RESPIRATORY: No accessory muscle use. Clear to auscultation. Breath sounds equal bilaterally. GASTROINTESTINAL: Abdomen soft, non-tender, nondistended. MUSCULOSKELETAL: No obvious deformities. No clubbing. No cyanosis. No edema. NEUROLOGICAL: Awake and alert. No obvious cranial nerve deficits. Motor grossly within normal limits. Normal speech. PSYCHIATRIC: Appropriate mood and affect; insight and judgment normal. Data Data Last Documented VS Vital Signs Date Time Temp Pulse Resp B/P (MAP) Pulse Ox O2 Delivery O2 Flow Rate FiO2 09/15/17 13:41 94 22 108/70 (83) 98 Nasal Cannula 2.00 09/15/17 13:28 98.6 Orders Orders Complete Blood Count With Diff (09/15/17 13:29) Comprehensive Metabolic Panel (09/15/17 13:29) Act Partial Throm Time (Ptt) (09/15/17 13:29) Prothrombin Time / Inr (Pt) (09/15/17 13:29) Troponin I (09/15/17 13:29) Iv Access Insert/Monitor (09/15/17 13:29) Ecg Monitoring (09/15/17 13:29) Oximetry (09/15/17 13:29) Oxygen Administration (09/15/17 13:29) Chest, Single Ap (09/15/17 13:29) Sodium Chloride 0.9% Flush (Ns Flush) (09/15/17 13:30) Cta Thor Abd Aorta W Iv C W3d (09/15/17 13:29) Diltiazem Inj (Cardizem Inj) (09/15/17 13:30) Morphine Inj (Morphine Inj) (09/15/17 13:45) Iohexol 350 Inj (Omnipaque 350 Inj) (09/15/17 12:59) Admit Order (Ed Use Only) (09/15/17 ) Labs Laboratory Tests Test 09/15/17 13:35 White Blood Count 16.8 TH/MM3 Red Blood Count 3.61 MIL/MM3 Hemoglobin 10.9 GM/DL Hematocrit 31.5 % Mean Corpuscular Volume 87.1 FL Mean Corpuscular Hemoglobin 30.1 PG Mean Corpuscular Hemoglobin Concent 34.5 % Red Cell Distribution Width 13.9 % Platelet Count 397 TH/MM3 Mean Platelet Volume 7.0 FL Neutrophils (%) (Auto) 75.8 % Lymphocytes (%) (Auto) 14.4 % Monocytes (%) (Auto) 8.7 % Eosinophils (%) (Auto) 0.7 % Basophils (%) (Auto) 0.4 % Neutrophils # (Auto) 12.7 TH/MM3 Lymphocytes # (Auto) 2.4 TH/MM3 Monocytes # (Auto) 1.5 TH/MM3 Eosinophils # (Auto) 0.1 TH/MM3 Basophils # (Auto) 0.1 TH/MM3 CBC Comment DIFF FINAL Differential Comment Prothrombin Time 22.7 SEC Prothromb Time International Ratio 2.2 RATIO Activated Partial Thromboplast Time 42.2 SEC Blood Urea Nitrogen 21 MG/DL Creatinine 1.47 MG/DL Random Glucose 90 MG/DL Total Protein 8.1 GM/DL Albumin 3.0 GM/DL Calcium Level 9.1 MG/DL Alkaline Phosphatase 114 U/L Aspartate Amino Transf (AST/SGOT) 65 U/L Alanine Aminotransferase (ALT/SGPT) 56 U/L Total Bilirubin 0.7 MG/DL Sodium Level 139 MEQ/L Potassium Level 3.6 MEQ/L Chloride Level 105 MEQ/L Carbon Dioxide Level 24.4 MEQ/L Anion Gap 10 MEQ/L Estimat Glomerular Filtration Rate 63 ML/MIN Troponin I 0.21 NG/ML MDM Medical Decision Making Medical Screen Exam Complete: Yes Emergency Medical Condition: Yes Medical Record Reviewed: Yes Interpretation(s) ECG shows a-flutter at a rate of 146. Patient observed to go from sinus rhythm into a-fib multiple times while on the monitor. Differential Diagnosis ACS vs electrolyte abnormalities vs aneurysm vs pneumonia Narrative Course Patient is a 47 year old male who comes in complaining of palpitations and SOB. Patient was in afib with RVR on arrival. Given Cardizem on arrival with improvement of his rate. Patient going in and out of afib. CTA of the chest shows no issue with his aneurysm. Last 24 hours Impressions Chest X-Ray 09/15/17 1329 Signed Impressions: Service Date/Time: September 13:38 - CONCLUSION: The previously noted left lower lung infiltrate has resolved. No focal or acute pulmonary infiltrates. Stable cardiomegaly. Chris Driscoll MD Aorta CTA 09/15/179 Signed Impressions: Service Date/Time: September 14:44 - CONCLUSION: 1. Patient had a 5.5 cm ascending thoracic aortic aneurysm which is been repaired with a in situ tube graft. 2. Bovine arch. Arch vessels are patent. 3. Aortic valve prostheses. 4. Abdominal and pelvic vasculature is all normal in caliber without aneurysmal disease or dissection. 5. Hematoma in the left inguinal region tracking cephalad in the subcutaneous tissues overlying the transverse abdominis and rectus abdominous musculature. 6. Small right-sided effusion with bibasilar dependent atelectatic changes. Brice Cobos MD Troponin is elevated. He will be admitted for further management. Diagnosis Primary Impression: Atrial fibrillation with RVR Additional Impression: Elevated troponin Admitting Information Admitting Physician Requests: Observation Svetlana Coleman MD Sep 15, 2017 15:24
--- NOTE | 2017-09-15 16:11 | RADRPT ---
EXAM DATE/TIME: 09/15/2017 14:44 [facility] COMPARISON: CT PULMONARY ANGIOGRAM, July 06, 2016, 11:27. CTA CARDIAC W/IV CONTRAST,CORONARY ARTERIES W/3D, July 15, 2016, 9:19. INDICATIONS : Patient complains of low back pain. IV CONTRAST: 100 cc Omnipaque 350 (iohexol) IV RADIATION DOSE: 43.32 CTDIvol (mGy) MEDICAL HISTORY : Cardiovascular disease. Cerebrovascular disease. Hypertension. SURGICAL HISTORY : Appendectomy. heart valve replacement ENCOUNTER: Initial ACUITY: 1 day PAIN SCALE: 8/10 LOCATION: low back TECHNIQUE: Volumetric scanning was performed using a multi-row detector CT scanner. The data was post processed with a variety of visualization algorithms including full volume maximum intensity projection, multi -planar sliding thin slab reformation, curved planar reformation, and surface rendering techniques. Using automated exposure control and adjustment of the mA and/or kV according to patient size, radiat ion dose was kept as low as reasonably achievable to obtain optimal diagnostic quality images. DICOM format image data is available electronically for review and comparison. FINDINGS: LUNGS: Minimal bibasilar dependent atelectatic changes with a small associated effusion on the right. MEDIASTINUM: Patient had a previous ascending thoracic aortic aneurysm measuring upwards of 5.5 cm in diameter. Th is appears to have been surgically repaired within in situ graft. Graft is widely patent. There also appears to be an aortic valve prosthesis. Bovine arch. Arch vessels are all patent. ABDOMEN: The liver and spleen are free of focal defects. The gallbladder and pancreas demonstrate no abnormali ty. The adrenal glands are normal. The kidneys demonstrate no evidence of solid renal mass or hydrone phrosis. No free fluid or abdominal masses are identified. No para-aortic adenopathy is seen. PELVIS: There is some stranding about the neurovascular bundle in the left inguinal region characteristic of a recent vascular intervention. A subcutaneous hematoma tracks along the left rectus abdominous and t ransverse abdominis muscles measuring approximately 3.1 cm in depth. THORACIC AORTA: As stated above, there appears to be repair of a 5.5 cm ascending thoracic aortic aneurysm with an in situ graft. Graft is widely patent. Expected thrombus in the [place] ascending thoracic aorta. ABDOMINAL AORTA: The aorta is normal in caliber without aneurysm or dissection. The renal arteries are patent bilater ally. The proximal celiac and superior mesenteric arteries are patent and normal in diameter. PELVIC VESSELS: The internal iliac and external iliac vessels are patent without aneurysm or stenosis. CONCLUSION: 1. Patient had a 5.5 cm ascending thoracic aortic aneurysm which is been repaired with a in situ tube graft. 2. Bovine arch. Arch vessels are patent. 3. Aortic valve prostheses. 4. Abdominal and pelvic vasculature is all normal in caliber without aneurysmal disease or dissection . 5. Hematoma in the left inguinal region tracking cephalad in the subcutaneous tissues overlying the t ransverse abdominis and rectus abdominous musculature. 6. Small right-sided effusion with bibasilar dependent atelectatic changes. Brice Cobos MD on September 15, 2017 at 15:47 Board Certified Radiologist. This report was verified electronically.
--- NOTE | 2017-09-15 17:28 | HHI.HP ---
HPI Service Family Medicine Primary Care Physician Tristian Rodriguez MD Admission Diagnosis afib with rvr, elevated troponin Diagnoses: International Travel<30 Days: No Contact w/Intl Traveler<30days: No Known Affected Area: No History of Present Illness Patient is a 47-year-old male with past medical history of CVA 2, hypertension and status post thoracic aortic aneurysm repair and aortic root replacement with a [address] [employer] mechanical valve conduit who presents to the ED from PCP's office after he was found to have new onset A. fib/A flutter with RVR at f/u visit. Thoracic aortic aneurysm repair was done on 09/[address] Cheatham. He state he has been on warfarin since that surgery. Endorses 2 day h/o: worsening sob ( stared Tuesday, now improved with the oxygen) and palpitations. Denies Cp, n/v dizziness, or LE swelling. Review of Systems Constitutional: COMPLAINS OF: Change in appetite (since the thoracic surgery), DENIES: Fever, Chills, Dizziness Eyes: DENIES: Blurred vision Ears, nose, mouth, throat: DENIES: Nasal discharge, Throat pain Respiratory: COMPLAINS OF: Cough, Sputum production (clear), Shortness of breath Cardiovascular: COMPLAINS OF: Palpitations, DENIES: Chest pain, Syncope, Lower Extremity Edema Gastrointestinal: DENIES: Abdominal pain, Constipation, Diarrhea, Nausea, Vomiting Genitourinary: DENIES: Urinary frequency (only urinated 2 today, less than normal), Dysuria Musculoskeletal: COMPLAINS OF: Back pain Integumentary: DENIES: Rash Hematologic/lymphatic: DENIES: Bruising Neurologic: COMPLAINS OF: Paresthesias (Right hand ring and pinky finger, started after surgery and now returned), DENIES: Headache, Localized weakness Psychiatric: DENIES: Confusion Past Family Social History Past Medical History HTN CVA x2, 2006, 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 Cheatham Past Surgical History Appendectomy 1986 Reported Medications Reported Meds & Active Scripts Active Warfarin 3 Mg Tab 3 Mg PO DAILY@1600 Amiodarone (Amiodarone HCl) 200 Mg Tab 200 Mg PO BID, since last february Pantoprazole (Pantoprazole Sodium) 40 Mg Tab 40 Mg PO DAILY@06 Oxycodone-Acetaminophen 5-325 (Oxycodone HCl/Acetaminophen) 5 Mg-325 Mg Tablet 1 Tab PO Q6HR PRN Metoprolol Tartrate 25 Mg Tab 25 Mg PO BID, Lipitor (Atorvastatin Calcium) 80 Mg Tab 80 Mg PO HS Aspirin 81 Mg Chew 81 Mg CHEW DAILY, last took in a wk Allergies: Coded Allergies: No Known Allergies (Verified Allergy, Unknown, 09/06/17) Family History Father ~70 w/ HTN Mother ~65 w/ HTN, CHF Social History Lives in [facility] 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 Quit smoking cigarettes 05/2016, patient has a h/o 25 pack years. Alcohol: Socially Illicit drug use: Denies Influenza vaccine: denies 07/28/2017 Physical Exam Vital Signs Vital Signs Date Time Temp Pulse Resp B/P (MAP) Pulse Ox O2 Delivery O2 Flow Rate FiO2 09/15/17 17:26 89 20 122/89 (100) 99 Room Air 09/15/17 13:41 94 22 108/70 (83) 98 Nasal Cannula 2.00 09/15/17 13:40 90 22 119/74 (89) 98 Nasal Cannula 2.00 09/15/17 13:32 109 24 100 Room Air 09/15/17 13:32 100 Room Air 09/15/17 13:28 148 20 98 Room Air 09/15/17 13:28 98.6 132 24 118/73 (88) 98 Room Air Physical Exam GENERAL: This is a well-nourished, well-developed patient, in no apparent distress. SKIN: No rashes, ecchymoses or lesions. Cool and dry. Well healing thoracic scar noted. HEAD: Atraumatic. Normocephalic. EYES: Pupils equal round and reactive. Extraocular motions intact. No scleral icterus. No injection or drainage. ENT: Nose without bleeding, purulent drainage or septal hematoma. Throat without erythema, tonsillar hypertrophy or exudate. Uvula midline. Airway patent. NECK: Trachea midline. No JVD or lymphadenopathy. Supple, nontender, no meningeal signs. CARDIOVASCULAR: irregular rate and rhythm without gallops, or rubs. Mechanical valve murmur noted. RESPIRATORY: Clear to auscultation. Breath sounds equal bilaterally. No wheezes , rales, or rhonchi. GASTROINTESTINAL: Abdomen soft, non-tender, nondistended. No hepato-splenomegaly , or palpable masses. No guarding. MUSCULOSKELETAL: Extremities without clubbing, cyanosis, or edema. No joint tenderness, effusion, or edema noted. No calf tenderness. Negative Homans sign bilaterally. NEUROLOGICAL: Awake and alert. Cranial nerves II through XII intact. Motor and sensory grossly within normal limits. Five out of 5 muscle strength in all muscle groups. Normal speech. Laboratory Laboratory Tests Test 09/15/17 13:35 White Blood Count 16.8 Red Blood Count 3.61 Hemoglobin 10.9 Hematocrit 31.5 Mean Corpuscular Volume 87.1 Mean Corpuscular Hemoglobin 30.1 Mean Corpuscular Hemoglobin Concent 34.5 Red Cell Distribution Width 13.9 Platelet Count 397 Mean Platelet Volume 7.0 Neutrophils (%) (Auto) 75.8 Lymphocytes (%) (Auto) 14.4 Monocytes (%) (Auto) 8.7 Eosinophils (%) (Auto) 0.7 Basophils (%) (Auto) 0.4 Neutrophils # (Auto) 12.7 Lymphocytes # (Auto) 2.4 Monocytes # (Auto) 1.5 Eosinophils # (Auto) 0.1 Basophils # (Auto) 0.1 CBC Comment DIFF FINAL Differential Comment Prothrombin Time 22.7 Prothromb Time International Ratio 2.2 Activated Partial Thromboplast Time 42.2 Blood Urea Nitrogen 21 Creatinine 1.47 Random Glucose 90 Total Protein 8.1 Albumin 3.0 Calcium Level 9.1 Alkaline Phosphatase 114 Aspartate Amino Transf (AST/SGOT) 65 Alanine Aminotransferase (ALT/SGPT) 56 Total Bilirubin 0.7 Sodium Level 139 Potassium Level 3.6 Chloride Level 105 Carbon Dioxide Level 24.4 Anion Gap 10 Estimat Glomerular Filtration Rate 63 Troponin I 0.21 Result Diagram: 09/15/175 09/15/171334 Imaging Last Impressions Chest X-Ray 09/15/171328 Signed Impressions: Service Date/Time: September 13:38 - CONCLUSION: The previously noted left lower lung infiltrate has resolved. No focal or acute pulmonary infiltrates. Stable cardiomegaly. Chris Driscoll MD Aorta CTA 09/15/171328 Signed Impressions: Service Date/Time: September 14:44 - CONCLUSION: 1. Patient had a 5.5 cm ascending thoracic aortic aneurysm which is been repaired with a in situ tube graft. 2. Bovine arch. Arch vessels are patent. 3. Aortic valve prostheses. 4. Abdominal and pelvic vasculature is all normal in caliber without aneurysmal disease or dissection. 5. Hematoma in the left inguinal region tracking cephalad in the subcutaneous tissues overlying the transverse abdominis and rectus abdominous musculature. 6. Small right-sided effusion with bibasilar dependent atelectatic changes. MD Cheryl Darling VTE Risk Assessment Caprini VTE Risk Assessment: Mod/High Risk (score >= 2) Caprini Risk Assessment Model Point Value = 1 Point Value = 2 Point Value = 3 Point Value = 5 Age 41-60 Minor surgery BMI > 25 kg/m2 Swollen legs Varicose veins or History of unexplained or recurrent spontaneous Oral contraceptives or hormone replacement Sepsis (< 1 month) Serious lung disease, including pneumonia (< 1 month) Abnormal pulmonary function Acute myocardial infarction Congestive heart failure (< 1 month) History of inflammatory bowel disease Medical patient at bed rest Age 61-74 Arthroscopic surgery Major open surgery (> 45 min) Laparoscopic surgery (> 45 min) Malignancy Confined to bed (> 72 hours) Immobilizing plaster cast Central venous access Age >= 75 History of VTE Family history of VTE Factor V Leiden Prothrombin [id number] Lupus anticoagulant Anticardiolipin antibodies Elevated serum homocysteine Heparin-induced thrombocytopenia Other congenital or acquired thrombophilia Stroke (< 1 month) Elective arthroplasty Hip, pelvis, or leg fracture Acute spinal cord injury (< 1 month) Prophylaxis Regimen Total Risk Factor Score Risk Level Prophylaxis Regimen 0-1 Low Early ambulation 2 Moderate Order ONE of the following: *Sequential Compression Device (SCD) *Heparin 5000 units SQ BID 3-4 Higher Order ONE of the following medications: *Heparin 5000 units SQ TID *Enoxaparin/Lovenox 40 mg SQ daily (WT < 150 kg, CrCl > 30 mL/min) *Enoxaparin/Lovenox 30 mg SQ daily (WT < 150 kg, CrCl > 10-29 mL/min) *Enoxaparin/Lovenox 30 mg SQ BID (WT < 150 kg, CrCl > 30 mL/min) AND/OR *Sequential Compression Device (SCD) 5 or more Highest Order ONE of the following medications: *Heparin 5000 units SQ TID (Preferred with Epidurals) *Enoxaparin/Lovenox 40 mg SQ daily (WT < 150 kg, CrCl > 30 mL/min) *Enoxaparin/Lovenox 30 mg SQ daily (WT < 150 kg, CrCl > 10-29 mL/min) *Enoxaparin/Lovenox 30 mg SQ BID (WT < 150 kg, CrCl > 30 mL/min) AND *Sequential Compression Device (SCD) Assessment and Plan Assessment and Plan Patient is a 47-year-old male with past medical history of CVA 2, hypertension and status post thoracic aortic aneurysm repair and aortic root replacement with a 25 [employer] mechanical valve conduit who presents to the ED from PCP's office after he was found to have new onset A. fib/A flutter with RVR at f/u visit. Patient was given Cardizem in the ED and is currently rate controlled. Code Status full code Discussed Condition With SWChris Bates WDW Dr. Villafana Problem List: (1) Atrial fibrillation and flutter ICD Codes: I48.91 - Unspecified atrial fibrillation; I48.92 - Unspecified atrial flutter Status: Acute Plan: Patient found to have new onset a. fib with RVR. HR 130-140 in the ED. -s/p 30mg IV bolus of Cardizem with appropriate response, HR decreased to 90s -placed on telemetry -titrate oxygen as needed EKG: sinus tach, possible atrial flutter -F/u TSH, free T4, mag, phosphorous -f/u serial troponin and EKG, echo -Cardiology consulted, appreciate recommendations continue to monitor and consider another dose of Cardizem if pt develop RVR (2) Hypertension ICD Codes: I10 - Hypertension Status: Acute Plan: c/w home medications (3) Thoracic aortic aneurysm ICD Codes: I71.2 - Thoracic aortic aneurysm, without rupture Status: Resolved Plan: Patient had severe aortic insufficiency and aneurismal 6cm root and ascending aorta Sep 06, 2017: status post thoracic aortic aneurysm repair and aortic root replacement with a 25 [employer] mechanical valve conduit by Dr. Shukla Resection and grafting ascending thoracic aortic aneurysm -c/w warfarin (4) CVA (cerebral vascular accident) ICD Codes: I63.9 - Cerebral infarction, unspecified Plan: Patient with h/o of two prior CVA -c/a asa -lipitor (5) Nutrition, metabolism, and development symptoms ICD Codes: R63.8 - Other symptoms and signs concerning food and fluid intake Status: Acute Plan: Fluids: not indicated at this time Electrolytes: replete as needed Nutrition: heart healthy DVT ppx: pt on warfarin Morenita Perkins MD, R1 Sep 15, 2017 17:28
[2017-09-15] MEDS ORDERED: SODIUM CHLORIDE 0.9% FLUSH 10 ML FLUSH IV FLUSH PRN (18:00)
[2017-09-15] MEDS ORDERED: NALOXONE HCL 0.4 MG/ML AMP IV PUSH PRN (18:00)
[2017-09-15] MEDS ORDERED: LACTULOSE SYRUP 20 GM/30 ML CUP PO PRN (18:00)
[2017-09-15] MEDS ORDERED: ACETAMINOPHEN 325 MG TAB PO PRN (18:00)
[2017-09-15] MEDS ORDERED: BISACODYL 10 MG SUPP RECTAL PRN (18:00)
[2017-09-15] MEDS ORDERED: MAGNESIUM HYDROXIDE SUSP 30 ML CUP PO PRN (18:00)
[2017-09-15] MEDS ORDERED: SENNOSIDES 8.6 MG TAB PO PRN (18:00)
[2017-09-15] MEDS: ASPIRIN 81 MG CHEW TAB CHEW SCH (19:42)
[2017-09-15] MEDS: WARFARIN SOD 3 MG TAB PO SCH (19:43)
[2017-09-15 19:48] LABS: MAGNESIUM 2.3 MG/DL (1.5-2.5); PHOSPHORUS 2.8 MG/DL (2.5-4.9)
[2017-09-15 19:57] LABS: FREE T4 1.53 NG/DL (0.76-1.46)
[2017-09-15] MEDS ORDERED: ATORVASTATIN 80 MG TAB PO SCH (21:00)
[2017-09-15] MEDS ORDERED: METOPROLOL TARTRATE 25 MG TAB PO SCH (21:00)
[2017-09-15] MEDS ORDERED: AMIODARONE 200 MG TAB PO SCH (21:00)
[2017-09-15] MEDS: DOCUSATE SODIUM 50 MG/SENNA 8.6 MG TAB PO SCH (21:37)
[2017-09-15] MEDS: SODIUM CHLORIDE 0.9% FLUSH 10 ML FLUSH IV FLUSH SCH (21:38)
[2017-09-15] MEDS: oxyCODONE/ACETAMINOPHEN 5 MG/325 MG TAB PO PRN (21:42)
--- NOTE | 2017-09-15 23:35 | EKG ---
Date Performed: 09/15/2017 Time Performed: 20:30:08 PTAGE: 47 years EKG: SINUS TACHYCARDIA WITH FREQUENT VENTRICULAR PREMATURE COMPLEXES IN A BIGEMINAL PATTERN POSS IBLE LEFT VENTRICULAR HYPERTROPHY ST DEVIATION AND MODERATE T-WAVE ABNORMALITY, CONSIDER LATERAL ISCH EMIA ABNORMAL ECG PREVIOUS TRACING : 09/15/2017 13.25 Compared to prior tracing, rate has decreased, now with PV Cs DOCTOR: Steven Tavarez Interpretating Date/Time 09/15/2017 23:33:24
[2017-09-16] VITALS (7 sets, daily range): BP systolic 108–133; BP diastolic 69–85; PULSE 73–82; RESP 16–20; TEMP 98.6–99.5; O2SAT 97–98
--- NOTE | 2017-09-16 00:06 | EKG ---
Date Performed: 09/15/2017 Time Performed: 13:25:55 PTAGE: 47 years EKG: SINUS TACHYCARDIA, POSSIBLE ATRIAL FLUTTER LEFT VENTRICULAR HYPERTROPHY AND ST-T CHANGE ABN ORMAL ECG PREVIOUS TRACING : 09/15/2017 13.23 Since the prior tracing, rate has inceased and now with ST/ T wave changes DOCTOR: Steven Tavarez Interpretating Date/Time 09/16/2017 00:04:36
[2017-09-16 02:15] LABS: AUTOMATED NEUTROPHIL # 11.1 TH/MM3 (1.8-7.7); BASOPHIL % 0.3 % (0.0-2.0); EOSINOPHIL # 0.2 TH/MM3 (0-0.4); EOSINOPHIL % 1.3 % (0.0-4.0); HEMATOCRIT 27.1 % (39.0-51.0); HEMOGLOBIN 9.2 GM/DL (13.0-17.0); LYMPH % 17.6 % (9.0-44.0); LYMPHOCYTE # 2.6 TH/MM3 (1.0-4.8); MEAN CELL VOLUME 87.4 FL (80.0-100.0); MEAN CORPUSCULAR HEMOGLOBIN 29.7 PG (27.0-34.0); MEAN PLATELET VOLUME 6.8 FL (7.0-11.0); MONO % 7.1 % (0.0-8.0); MONOCYTE # 1.1 TH/MM3 (0-0.9); NEUT % 73.7 % (16.0-70.0); PLATELET COUNT 362 TH/MM3 (150-450); RED BLOOD COUNT 3.11 MIL/MM3 (4.50-5.90); RED CELL DISTRIBUTION WIDTH 13.8 % (11.6-17.2)
[2017-09-16 02:22] LABS: INTERNATIONAL NORMALIZED RATIO 2.7 RATIO; PROTHROMBIN TIME - PATIENT 27.4 SEC (9.8-11.6)
[2017-09-16 02:47] LABS: ALBUMIN 2.3 GM/DL (3.4-5.0); ALKALINE PHOSPHATASE 88 U/L (45-117); ALT (GPT) 42 U/L (12-78); AST (GOT) 48 U/L (15-37); BLOOD UREA NITROGEN 18 MG/DL (7-18); CALCIUM 8.1 MG/DL (8.5-10.1); CHLORIDE 107 MEQ/L (98-107); CREATININE 1.31 MG/DL (0.60-1.30); GLOMERULAR FILTRATION RATE 72 ML/MIN (>89); GLUCOSE,RANDOM 95 MG/DL (74-106); SODIUM (NA) 141 MEQ/L (136-145); TOTAL BILIRUBIN ADULT 0.6 MG/DL (0.2-1.0); TOTAL PROTEIN 6.6 GM/DL (6.4-8.2); TROPONIN I 0.15 NG/ML (0.02-0.05)
[2017-09-16] MEDS ORDERED: PANTOPRAZOLE SOD 40 MG DELAYED RELEASE TAB PO SCH (06:00)
--- NOTE | 2017-09-16 07:40 | PD.CONS ---
HPI Consult Requested By Primary Care Physician Tristian Rodriguez MD History of Present Illness 47-year-old male with a past medical history of CVA, HTN, and recent thoracic aortic aneurysm and aortic root repair with Dr. Pickett on 09/06 who was sent from PCPs office for new onset A. fib/flutter. The patient states that since his surgery recently he started feeling more short of breath and presented to his primary care's office. They did an EKG which showed atrial flutter with RVR and he was sent to the ED. He was given IV Cardizem 30 mg in the ED with improvement in heart rate. Since the patient was admitted, telemetry shows NSR with controlled rate and the patient states the shortness of breath has improved. He denies any chest pain or palpitations. He has been on warfarin since his recent surgery. 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 Pickett on 09/06 Reported Medications Reported Meds & Active Scripts Active Warfarin 3 Mg Tab 3 Mg PO DAILY@1600 Amiodarone (Amiodarone HCl) 200 Mg Tab 200 Mg PO BID Pantoprazole (Pantoprazole Sodium) 40 Mg Tab 40 Mg PO DAILY@06 Dok (Docusate Sodium) 100 Mg Cap 100 Mg PO BID Oxycodone-Acetaminophen 5-325 (Oxycodone HCl/Acetaminophen) 5 Mg-325 Mg Tablet 1 Tab PO Q6HR PRN Metoprolol Tartrate 25 Mg Tab 25 Mg PO BID Lipitor (Atorvastatin Calcium) 80 Mg Tab 80 Mg PO HS Norvasc (Amlodipine Besylate) 10 Mg Tab 10 Mg PO DAILY Aspirin 81 Mg Chew 81 Mg CHEW DAILY Active Ordered Medications Current Medications Medications (Trade) Dose Ordered Sig/Rory Route Start Time Stop Time Status Last Admin (NS Flush) 2 ml UNSCH PRN IVF 09/15/17 13:30 (NS Flush) 2 ml UNSCH PRN IV FLUSH 09/15/17 18:00 (NS Flush) 2 ml BID IV FLUSH 09/15/17 21:00 09/15/17 21:38 (Tylenol) 650 mg Q4H PRN PO 09/15/17 18:00 (Narcan Inj) 0.4 mg UNSCH PRN IV PUSH 09/15/17 18:00 (Latrice-Colace) 1 tab BID PO 09/15/17 21:00 09/15/17 21:37 (Milk Of Magnesia Liq) 30 ml Q12H PRN PO 09/15/17 18:00 (Senokot) 17.2 mg Q12H PRN PO 09/15/17 18:00 (Dulcolax Supp) 10 mg DAILY PRN RECTAL 09/15/17 18:00 (Lactulose Liq) 30 ml DAILY PRN PO 09/15/17 18:00 (Cordarone) 200 mg BID PO 09/15/17 21:00 09/15/17 21:37 (Aspirin Chew) 81 mg DAILY CHEW 09/15/17 19:15 09/15/17 19:42 (Lipitor) 80 mg HS PO 09/15/17 21:00 09/15/17 21:38 (Lopressor) 25 mg BID PO 09/15/17 21:00 09/15/17 21:37 (Percocet 5-325 Mg) 1 tab Q6HR PRN PO 09/15/17 18:15 09/15/17 21:42 (Protonix) 40 mg DAILY@06 PO 09/16/17 06:00 09/16/17 06:16 (Coumadin) 3 mg DAILY@1600 PO 09/15/17 19:30 09/15/17 19:43 Family History Father ~70 w/ HTN Mother ~65 w/ HTN, CHF Social History Lives in [facility] 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 Quit smoking cigarettes 04/2016, patient has a h/o 25 pack years. Alcohol: Socially Illicit drug use: Denies (Min Pacheco) Physical Exam Vital Signs Vital Signs Date Time Temp Pulse Resp B/P (MAP) Pulse Ox O2 Delivery O2 Flow Rate FiO2 09/16/17 07:23 74 09/16/17 04:00 78 09/16/17 00:12 98.7 75 18 111/69 (83) 97 09/16/17 00:00 78 09/15/17 22:17 90 09/15/17 22:04 98.4 60 18 134/68 (90) 95 09/15/17 20:50 09/15/17 20:16 81 16 117/78 (91) 98 Nasal Cannula 2.00 09/15/17 19:30 98 Nasal Cannula 2.00 09/15/17 17:26 89 20 122/89 (100) 99 Room Air 09/15/17 13:41 94 22 108/70 (83) 98 Nasal Cannula 2.00 09/15/17 13:40 90 22 119/74 (89) 98 Nasal Cannula 2.00 09/15/17 13:32 109 24 100 Room Air 09/15/17 13:32 100 Room Air 09/15/17 13:28 148 20 98 Room Air 09/15/17 13:28 98.6 132 24 118/73 (88) 98 Room Air Physical Exam GENERAL: Well-developed well-nourished. In no acute distress. NECK: No carotid bruits. No JVD. CARDIOVASCULAR: Regular rate and rhythm. Soft mechanical murmur appreciated. RESPIRATORY: No accessory muscle use. Clear to auscultation. Breath sounds equal bilaterally. MUSCULOSKELETAL: No clubbing or cyanosis. No edema. NEUROLOGICAL: Awake and alert. Normal speech. SKIN: Well-healing midline sternotomy Laboratory Laboratory Tests Test 09/15/17 13:35 09/16/17 02:06 White Blood Count 16.8 15.0 Red Blood Count 3.61 3.11 Hemoglobin 10.9 9.2 Hematocrit 31.5 27.1 Mean Corpuscular Volume 87.1 87.4 Mean Corpuscular Hemoglobin 30.1 29.7 Mean Corpuscular Hemoglobin Concent 34.5 34.0 Red Cell Distribution Width 13.9 13.8 Platelet Count 397 362 Mean Platelet Volume 7.0 6.8 Neutrophils (%) (Auto) 75.8 73.7 Lymphocytes (%) (Auto) 14.4 17.6 Monocytes (%) (Auto) 8.7 7.1 Eosinophils (%) (Auto) 0.7 1.3 Basophils (%) (Auto) 0.4 0.3 Neutrophils # (Auto) 12.7 11.1 Lymphocytes # (Auto) 2.4 2.6 Monocytes # (Auto) 1.5 1.1 Eosinophils # (Auto) 0.1 0.2 Basophils # (Auto) 0.1 0.0 CBC Comment DIFF FINAL DIFF FINAL Differential Comment Prothrombin Time 22.7 27.4 Prothromb Time International Ratio 2.2 2.7 Activated Partial Thromboplast Time 42.2 Blood Urea Nitrogen 21 18 Creatinine 1.47 1.31 Random Glucose 90 95 Total Protein 8.1 6.6 Albumin 3.0 2.3 Calcium Level 9.1 8.1 Alkaline Phosphatase 114 88 Aspartate Amino Transf (AST/SGOT) 65 48 Alanine Aminotransferase (ALT/SGPT) 56 42 Total Bilirubin 0.7 0.6 Sodium Level 139 141 Potassium Level 3.6 3.5 Chloride Level 105 107 Carbon Dioxide Level 24.4 26.0 Anion Gap 10 8 Estimat Glomerular Filtration Rate 63 72 Phosphorus Level 2.8 Magnesium Level 2.3 Troponin I 0.21 0.15 Free Thyroxine 1.53 Thyroid Stimulating Hormone 3rd Gen 3.480 (Min Pacheco) Result Diagram: 09/16/176 09/16/17205 Imaging Last Impressions Chest X-Ray 09/15/171328 Signed Impressions: Service Date/Time: September 13:38 - CONCLUSION: The previously noted left lower lung infiltrate has resolved. No focal or acute pulmonary infiltrates. Stable cardiomegaly. Chris Driscoll MD Aorta CTA 09/15/171328 Signed Impressions: Service Date/Time: September 14:44 - CONCLUSION: 1. Patient had a 5.5 cm ascending thoracic aortic aneurysm which is been repaired with a in situ tube graft. 2. Bovine arch. Arch vessels are patent. 3. Aortic valve prostheses. 4. Abdominal and pelvic vasculature is all normal in caliber without aneurysmal disease or dissection. 5. Hematoma in the left inguinal region tracking cephalad in the subcutaneous tissues overlying the transverse abdominis and rectus abdominous musculature. 6. Small right-sided effusion with bibasilar dependent atelectatic changes. Brice Cobos MD (Min Pacheco) Assessment and Plan Assessment and Plan 47-year-old male with a past medical history of CVA, HTN, and recent thoracic aortic aneurysm and aortic root repair with Dr. Pickett on 09/06 who was sent from PCPs office for new onset A. fib/flutter Atrial flutter with RVR: Currently NSR with controlled rate. We would discontinue amiodarone and amlodipine and increase metoprolol to 50 mg twice daily for rate control. Continue warfarin. 2D echo ordered. If heart rate remains controlled and 2D echo okay, should be able to discharge the patient later today. (Min Pacheco) Assessment and Plan agree with above on amio, suspect post op afib although no documentation of such. given age, don' t want to continue amio indefinitely. DC amio. rate control strategy. DC amlodipine. titrate BB 50 BID 2d echo - revealuate post op no CP. no preop LHC . no need for ischemic workup as inpt. may consider as outpatient mechanical AVR and afib - continue anticoagulation if echo unremarkable, dc planning with FU dr bowers (Melvin Ceballos MD) Min Pacheco Sep 16, 2017 07:40 Melvin Ceballos MD Sep 16, 2017 08:16
--- NOTE | 2017-09-16 08:54 | EKG ---
Date Performed: 09/16/2017 Time Performed: 01:46:56 PTAGE: 47 years EKG: Sinus rhythm POSSIBLE LEFT VENTRICULAR HYPERTROPHY ST DEVIATION AND MODERATE T-WAVE ABNORMALITY, CONSIDER LATERAL ISCHEMIA ABNORMAL ECG PREVIOUS TRACING : 09/15/2017 20.30 Since previous tracing, no significant change noted DOCTOR: Kavon Singh Interpretating Date/Time 09/16/2017 08:52:58
[2017-09-16] MEDS ORDERED: METOPROLOL TARTRATE 50 MG TAB PO SCH (09:00)
[2017-09-16] MEDS: DOCUSATE SODIUM 50 MG/SENNA 8.6 MG TAB PO SCH (11:11)
[2017-09-16] MEDS: ASPIRIN 81 MG CHEW TAB CHEW SCH (11:11)
[2017-09-16] MEDS: SODIUM CHLORIDE 0.9% FLUSH 10 ML FLUSH IV FLUSH SCH (11:11)
--- NOTE | 2017-09-16 11:27 | ECHRPT ---
Indication: ATRIAL FIB/FLUTTER CONCLUSIONS The left atrial size is upper limits of normal. Trace mitral valve regurgitation. Mitral annular calcification is present. Trivial pulmonary valve regurgitation. BP: 111 / 69 HR: Rhythm: Sinus MEASUREMENTS (Male / Female) Normal Values Technical Quality:Fair 2D ECHO LV Diastolic Diameter PLAX 5.7 cm 4.2 - 5.9 / 3.9 - 5.3 cm LV Systolic Diameter PLAX 4.5 cm IVS Diastolic Thickness 1.5 cm 0.6 - 1.0 / 0.6 - 0.9 cm LVPW Diastolic Thickness 1.4 cm 0.6 - 1.0 / 0.6 - 0.9 cm LV Relative Wall Thickness 0.5 RV Internal Dim ED PLAX 3.6 cm LVOT Diameter 1.8 cm LA Systolic Diameter LX 4.7 cm 3.0 - 4.0 / 2.7 - 3.8 cm M-MODE Aortic Root Diameter MM 3.4 cm LA Systolic Diameter MM 3.0 cm LA Ao Ratio MM 0.9 AV Cusp Separation MM 1.1 cm DOPPLER AV Peak Velocity 325.0 cm/s AV Peak Gradient 42.3 mmHg AV Mean Gradient 23.0 mmHg AV Velocity Time Integral 50.1 cm LVOT Peak Velocity 133.0 cm/s LVOT Peak Gradient 7.1 mmHg LVOT Velocity Time Integral 21.8 cm AV Area Cont Eq vti 1.1 cm AV Area Cont Eq pk 1.0 cm MV Area PHT 2.9 cm Mitral E Point Velocity 95.3 cm/s Mitral A Point Velocity 65.5 cm/s Mitral E to A Ratio 1.5 LV E' Lateral Velocity 9.8 cm/s Mitral E to LV E' Lateral Ratio 9.7 LV E' Septal Velocity 8.1 cm/s Mitral E to LV E' Septal Ratio 11.8 TR Peak Velocity 227.0 cm/s TR Peak Gradient 20.6 mmHg Right Atrial Pressure 10.0 mmHg Pulmonary Artery Systolic Pressu 30.6 mmHg Right Ventricular Systolic Press 30.6 mmHg FINDINGS LEFT VENTRICLE Normal left ventricular size and wall thickness. The left ventricular systolic function is normal wi th an estimated ejection fraction in the range of 60-65%. Left ventricular diastolic function parameters a re normal. RIGHT VENTRICLE Normal right ventricular size and systolic function. LEFT ATRIUM The left atrial size is upper limits of normal. RIGHT ATRIUM The right atrial size is normal. ATRIAL SEPTUM Normal atrial septal thickness without atrial level shunting by limited color doppler interrogation. AORTA The aortic root and proximal ascending aorta are normal in size on limited imaging. MITRAL VALVE Structurally normal mitral valve. Trace mitral valve regurgitation. Mitral annular calcification is present. AORTIC VALVE Trileaflet aortic valve. No aortic valve stenosis or regurgitation. TRICUSPID VALVE Structurally normal tricuspid valve. No tricuspid valve stenosis or regurgitation. PULMONARY VALVE Trivial pulmonary valve regurgitation. VESSELS The inferior vena cava is normal in size. PERICARDIUM No pericardial effusion. Melvin Ceballos MD, FACC (Electronically Signed) Final Date:16 September 2017 11:26
[2017-09-16] MEDS: oxyCODONE/ACETAMINOPHEN 5 MG/325 MG TAB PO PRN (11:59)
--- NOTE | 2017-09-16 12:02 | HHI.FPPN ---
Subjective Remarks Patient seen and examined this morning and medical team. No acute events overnight. She has a few doing well. Denies any active chest pain, shortness of breath, nausea /vomiting, abdominal pain, dizziness, or lower extremity swelling. Patient had echocardiogram done this morning. (Morenita Perkins MD, R1) Objective Vitals Vital Signs Date Time Temp Pulse Resp B/P (MAP) Pulse Ox O2 Delivery O2 Flow Rate FiO2 09/16/17 11:26 99.5 82 20 133/85 (101) 97 09/16/17 07:44 99.4 76 16 123/79 (94) 97 09/16/17 07:23 74 09/16/17 04:00 78 09/16/17 00:12 98.7 75 18 111/69 (83) 97 09/16/17 00:00 78 09/15/17 22:17 90 09/15/17 22:04 98.4 60 18 134/68 (90) 95 09/15/17 20:50 09/15/17 20:16 81 16 117/78 (91) 98 Nasal Cannula 2.00 09/15/17 19:30 98 Nasal Cannula 2.00 09/15/17 17:26 89 20 122/89 (100) 99 Room Air 09/15/17 13:41 94 22 108/70 (83) 98 Nasal Cannula 2.00 09/15/17 13:40 90 22 119/74 (89) 98 Nasal Cannula 2.00 09/15/17 13:32 109 24 100 Room Air 09/15/17 13:32 100 Room Air 09/15/17 13:28 148 20 98 Room Air 09/15/17 13:28 98.6 132 24 118/73 (88) 98 Room Air (Morenita Perkins MD, R1) Result Diagram: 09/16/17 0206 09/16/17 0206 Imaging Last Impressions Chest X-Ray 09/15/179 Signed Impressions: Service Date/Time: September 13:38 - CONCLUSION: The previously noted left lower lung infiltrate has resolved. No focal or acute pulmonary infiltrates. Stable cardiomegaly. Chris Driscoll MD Aorta CTA 09/15/17 1329 Signed Impressions: Service Date/Time: Thursday, September 15, 2017 14:44 - CONCLUSION: 1. Patient had a 5.5 cm ascending thoracic aortic aneurysm which is been repaired with a in situ tube graft. 2. Bovine arch. Arch vessels are patent. 3. Aortic valve prostheses. 4. Abdominal and pelvic vasculature is all normal in caliber without aneurysmal disease or dissection. 5. Hematoma in the left inguinal region tracking cephalad in the subcutaneous tissues overlying the transverse abdominis and rectus abdominous musculature. 6. Small right-sided effusion with bibasilar dependent atelectatic changes. Brice Cobos MD Objective Remarks GENERAL: This is a well-nourished, well-developed patient, in no apparent distress. SKIN: No rashes, ecchymoses or lesions. Cool and dry. Well healing thoracic scar noted. HEAD: Atraumatic. Normocephalic. EYES: Pupils equal round and reactive. Extraocular motions intact. No scleral icterus. No injection or drainage. ENT: Nose without bleeding, purulent drainage or septal hematoma. Throat without erythema, tonsillar hypertrophy or exudate. Uvula midline. Airway patent. NECK: Trachea midline. No JVD or lymphadenopathy. Supple, nontender, no meningeal signs. CARDIOVASCULAR: Regular rate and rhythm without gallops, or rubs. Mechanical valve murmur noted. RESPIRATORY: Clear to auscultation. Breath sounds equal bilaterally. No wheezes , rales, or rhonchi. GASTROINTESTINAL: Abdomen soft, non-tender, nondistended. No hepato-splenomegaly , or palpable masses. No guarding. MUSCULOSKELETAL: Extremities without clubbing, cyanosis, or edema. No joint tenderness, effusion, or edema noted. No calf tenderness. Negative Homans sign bilaterally. NEUROLOGICAL: Awake and alert. Cranial nerves II through XII intact. Motor and sensory grossly within normal limits. Five out of 5 muscle strength in all muscle groups. Normal speech. (Morenita Perkins MD, R1) A/P Assessment and Plan Patient is a 47-year-old male with past medical history of CVA 2, hypertension and status post thoracic aortic aneurysm repair and aortic root replacement with a 25 [employer] mechanical valve conduit who presents to the ED from PCP's office after he was found to have new onset A. fib/A flutter with RVR at f/u visit. Patient was given Cardizem in the ED and is currently rate controlled. (Morenita Perkins MD, R1) Attending Attestation Pt. was seen in echocardiography room and wheeled back to his room. 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 He was seen in the clinic yesterday and sent to ED with AF with RVR, new onset. He rapidly converted in the ED with cardizem. He had been feeling SOB with decreased exercise tolerance. Recently had thoracic aortic aneurysm repair in this hospital. Today, no SOB, no chest pain except that related to his recent surgery, when he takes a deep breath. Feeling much improved. I agree with physical findings as noted above. Patient seen and examined with the medicine team. Case reviewed and discussed with the resident team. Agree with plan of care as discussed with me and documented in the resident note. (Elizabeth Villafana MD) Problem List: (1) Atrial fibrillation and flutter ICD Codes: I48.91 - Unspecified atrial fibrillation; I48.92 - Unspecified atrial flutter Status: Acute Plan: Patient found to have new onset a. fib with RVR. HR 130-140 in the ED. -s/p 30mg IV bolus of Cardizem with appropriate response, HR decreased to 90s -placed on telemetry -titrate oxygen as needed EKG: sinus tach, possible atrial flutter Vital signs stable, asymptomatic - TSH WNL, free T4 elevated 1.54, mag and phosphorous WNL -troponin 0.21-->0.15 - Echo: Left atrial size is upper limit of normal, trace mild troponin bout regurgitation, mitral annular calcification is present. Normal left ventricular systolic and diastolic function, EF of 60-65%. No pericardial effusion. -Cardiology consulted, appreciate recommendations Discontinue amiodarone and amlodipine and increase metoprolol to 50 mg twice daily for rate control. c/w warfarin Patient okay to be discharged later today per cardiology standpoint if rate remains controlled and 2-D echo is normal Patient to f/u as outpatient with solar sales estimator Dr. Singh (2) Hypertension ICD Codes: I10 - Hypertension Status: Acute Plan: c/w home medications (3) Thoracic aortic aneurysm ICD Codes: I71.2 - Thoracic aortic aneurysm, without rupture Status: Resolved Plan: Patient had severe aortic insufficiency and aneurismal 6cm root and ascending aorta Sep 06, 2017: status post thoracic aortic aneurysm repair and aortic root replacement with a [address] mechanical valve conduit by Dr. Shukla Resection and grafting ascending thoracic aortic aneurysm -c/w warfarin (4) CVA (cerebral vascular accident) ICD Codes: I63.9 - Cerebral infarction, unspecified Plan: Patient with h/o of two prior CVA -c/a asa -lipitor (5) Nutrition, metabolism, and development symptoms ICD Codes: R63.8 - Other symptoms and signs concerning food and fluid intake Status: Acute Plan: Fluids: not indicated at this time Electrolytes: replete as needed Nutrition: heart healthy DVT ppx: pt on warfarin (Morenita Perkins MD, R1) Problem Qualifiers (1) Hypertension: Qualified Codes: I10 - Essential (primary) hypertension Morenita Perkins MD, R1 Sep 16, 2017 12:02 Elizabeth Villafana MD Sep 16, 2017 12:28
[2017-09-16] MEDS ORDERED: PETROLATUM 30 GM TUBE TOPICAL ONE (13:45)
--- NOTE | 2017-09-16 15:17 | HHI.DCPOC ---
Discharge Care Plan Diagnosis: (1) Atrial fibrillation and flutter Goals to Promote Your Health * To prevent worsening of your condition and complications * To maintain your health at the optimal level Directions to Meet Your Goals Take your medications as prescribed Follow your dietary instruction Follow activity as directed Keep your appointments as scheduled Take your immunizations and boosters as scheduled If your symptoms worsen call your PCP, if no PCP go to Urgent Care Center or Emergency Room Smoking is Dangerous to Your Health. Avoid second hand smoke Call the 24-hour hour crisis hotline for domestic abuse at Morenita Perkins MD, R1 Sep 16, 2017 15:17
[2017-09-16] MEDS ORDERED: METO-309 PO (15:21)
[2017-09-16] MEDS ORDERED: ASPI-516 CHEW (15:23)
[2017-09-16] MEDS: WARFARIN SOD 3 MG TAB PO SCH (16:27)
== END 2017-09-16 17:32 | disposition home or self-care (01) | DRG 310 ==
LOC: NEPE 12:58 → NEDA 17:23 → OBSVTOIN 18:54 → NEPGCP 20:42
PROVIDERS: ADMIT Family Medicine; ATTEND Family Medicine
DX: I48.91 Unspecified atrial fibrillation (principal); I48.92 Unspecified atrial flutter; Z95.2 Presence of prosthetic heart valve; Z79.01 Long term (current) use of anticoagulants; Z79.82 Long term (current) use of aspirin; I10 Essential (primary) hypertension; Z95.828 Presence of other vascular implants and grafts; Z86.73 Personal history of transient ischemic attack (TIA), and cerebral infarction without residual deficits; Z87.891 Personal history of nicotine dependence
CPT/HCPCS: 71045; 71275; 74174; 80053; 83735; 84100; 84439; 84443; 84484; 85025; 85610; 85730; 93005; 93306; G8987-GP; G8988-GP; J2270; Q9967

== ENCOUNTER 2017-10-25 15:29 | Emergency (ER) | payer OTHER ==
[~2017-10-25] VITALS: Ht 172.7 cm; Wt 115.9 kg
[~2017-10-25 15:29] MED LIST changes: -AMIO200T PO; -AMLO10 PO; +METO-309 PO; -METO25TA3 PO
[2017-10-25 15:39] VITALS: BP 148/93; PULSE 66; RESP 20; TEMP 98.1; O2SAT 99
[2017-10-25 16:46] LABS: AUTOMATED NEUTROPHIL # 4.8 TH/MM3 (1.8-7.7); BASOPHIL # 0.1 TH/MM3 (0-0.2); BASOPHIL % 0.7 % (0.0-2.0); EOSINOPHIL # 0.3 TH/MM3 (0-0.4); EOSINOPHIL % 3.4 % (0.0-4.0); HEMATOCRIT 35.7 % (39.0-51.0); HEMOGLOBIN 12.1 GM/DL (13.0-17.0); LYMPH % 32.8 % (9.0-44.0); LYMPHOCYTE # 2.8 TH/MM3 (1.0-4.8); MEAN CELL VOLUME 83.4 FL (80.0-100.0); MEAN CORPUSCULAR HEMOGLOBIN 28.3 PG (27.0-34.0); MEAN PLATELET VOLUME 7.9 FL (7.0-11.0); MONOCYTE # 0.6 TH/MM3 (0-0.9); NEUT % 56.1 % (16.0-70.0); PLATELET COUNT 264 TH/MM3 (150-450); RED BLOOD COUNT 4.28 MIL/MM3 (4.50-5.90); RED CELL DISTRIBUTION WIDTH 15.2 % (11.6-17.2); WHITE BLOOD COUNT 8.6 TH/MM3 (4.0-11.0)
[2017-10-25 16:54] LABS: BACTERIA, URINE OCC /hpf; BILIRUBIN, URINE NEG (NEG); BLOOD, URINE NEG (NEG); GLUCOSE,URINE NEG (NEG); KETONE, URINE TRACE mg/dL (NEG); MUCUS URINE MANY /lpf (OCC); NITRITE,URINE NEG (NEG); PH, URINE 5.5 (5.0-8.5); SQUAMOUS EPITHELIAL CELL URINE 3 /hpf (0-5); URINE COLOR YELLOW (YELLW/STRAW); URINE LEUKOCYTE ESTERASE SMALL (NEG)
[2017-10-25 17:08] LABS: INTERNATIONAL NORMALIZED RATIO 1.5 RATIO; PROTHROMBIN TIME - PATIENT 14.8 SEC (9.8-11.6)
[2017-10-25 17:10] VITALS: BP 157/95; PULSE 65; RESP 17; O2SAT 100
[2017-10-25 17:10] LABS: ALBUMIN 3.7 GM/DL (3.4-5.0); AST (GOT) 27 U/L (15-37); BICARBONATE 30.9 MEQ/L (21.0-32.0); BLOOD UREA NITROGEN 17 MG/DL (7-18); CHLORIDE 109 MEQ/L (98-107); CREATININE 1.52 MG/DL (0.60-1.30); GLOMERULAR FILTRATION RATE 60 ML/MIN (>89); GLUCOSE,RANDOM 101 MG/DL (74-106); SODIUM (NA) 144 MEQ/L (136-145)
[2017-10-25 17:13] LABS: ALKALINE PHOSPHATASE 89 U/L (45-117); ALT (GPT) 24 U/L (12-78); TOTAL BILIRUBIN ADULT 0.4 MG/DL (0.2-1.0); TOTAL PROTEIN 8.3 GM/DL (6.4-8.2)
[2017-10-25] MEDS ORDERED: SODIUM CHLOR 0.9% 1000 ML INJ 1,000 ML IV ONE (17:15)
[2017-10-25] MEDS ORDERED: ONDANSETRON HCL 4 MG/2 ML VIAL IV PUSH ONE (17:15)
[2017-10-25] MEDS ORDERED: NITROFURANTOIN MONOHYD MACROCR 100 MG CAP PO ONE (17:15)
[2017-10-25] MEDS ORDERED: MORPHINE SULFATE 4 MG/ML INJ IV PUSH ONE (17:15)
[2017-10-25] MEDS ORDERED: POTASSIUM CHLORIDE 20 MEQ CONTROLLED RELEASE TAB PO ONE (17:30)
[2017-10-25 18:00] VITALS: RESP 18
--- NOTE | 2017-10-25 19:15 | PD ---
HPI Chief Complaint: Flank/Kidney Pain Time Seen by Provider: 17:01 Travel History International Travel<30 days: No Contact w/Intl Traveler<30days: No Traveled to known affect area: No History of Present Illness HPI 47-year-old male came to the emergency room with history of left-sided flank pain. Patient is a status post thoracic aorta repair 5 weeks ago. Patient has history of thoracic aortic aneurysm and aortic valve dilatation. The surgery involved the ascending thoracic aorta in the arch repair along with a valve replacement. This was done in this hospital by Dr. Cheatham. Patient did develop retroperitoneal hematoma status post catheterization just prior to the surgery. Last CTA thoracic aortogram continued to show a retroperitoneal hematoma. Patient is on Coumadin for the valve. He was discharged home 4 weeks ago. Patient says that his flank pain continued since the hospitalization quite possibly form the retroperitoneal hematoma. His pain never went away. He had seen Dr. Cheatham couple weeks ago postop in his office but failed to mention about the flank pain. Patient says he came today to the emergency room because he was asked to do some walking exercises and the pain is limiting him from doing that. His vital signs are stable. Patient does appears to be in moderate discomfort. Blood work was ordered from triage. No radiation of the pain. Pain is there all the time and gets worse when he gets up and moves. No syncopal episode. No gross hematuria. [facility] Past Medical History Narrative Medical List of his past medical, surgical, social and family history reviewed from the nursing note Hx Anticoagulant Therapy: Yes (coumadin) Arthritis: No Anxiety: No Depression: No Heart Rhythm Problems: No Cancer: No Cardiac Catheterization: Yes Cardiovascular Problems: Yes High Cholesterol: No Chest Pain: Yes Congestive Heart Failure: No Cerebrovascular Accident: Yes (2006) Diabetes: No Diminished Hearing: No Endocrine: No Genitourinary: No Hepatitis: No Hypertension: Yes Immune Disorder: No Musculoskeletal: Yes Neurologic: Yes Psychiatric: No Reproductive: No Respiratory: No Thyroid Disease: No Tetanus Vaccination: < 5 Years Influenza Vaccination: Yes Past Surgical History Abdominal Surgery: Yes (appendectomy) AICD: No Appendectomy: Yes (1985) Cardiac Surgery: No Ear Surgery: No Endocrine Surgery: No Eye Surgery: No Genitourinary Surgery: No Gynecologic Surgery: No Joint Replacement: No Oral Surgery: No Pacemaker: No Thoracic Surgery: No Other Surgery: Yes Social History Alcohol Use: Yes (QUIT YEARS AGO) Tobacco Use: No (QUIT) Substance Use: No Allergies-Medications (Allergen,Severity, Reaction): Coded Allergies: No Known Allergies (Verified Allergy, Unknown, 09/06/17) Comments No known drug allergies. Reported Meds & Prescriptions Reported Meds & Active Scripts Active Macrobid (Nitrofurantoin Monoh/Nitrofur Macro) 100 Mg Cap 100 Mg PO BID 14 Days Aspirin 81 Mg Chew 81 Mg CHEW DAILY Lopressor (Metoprolol Tartrate) 50 Mg Tab 50 Mg PO BID Warfarin 3 Mg Tab 3 Mg PO DAILY@1600 Pantoprazole (Pantoprazole Sodium) 40 Mg Tab 40 Mg PO DAILY@06 Dok (Docusate Sodium) 100 Mg Cap 100 Mg PO BID Oxycodone-Acetaminophen 5-325 (Oxycodone HCl/Acetaminophen) 5 Mg-325 Mg Tablet 1 Tab PO Q6HR PRN Lipitor (Atorvastatin Calcium) 80 Mg Tab 80 Mg PO HS List Narrative Medication List of his home medications reviewed from the nursing note Review of Systems Except as stated in HPI: all other systems reviewed are Neg Genitourinary: Positive: Flank Pain Musculoskeletal: Positive: Pain Physical Exam Narrative GENERAL: Awake, alert, obese, moderate distress SKIN: Focused skin assessment warm/dry. HEAD: Atraumatic. Normocephalic. EYES: Pupils equal and round. No scleral icterus. No injection or drainage. ENT: No nasal bleeding or discharge. Mucous membranes pink and moist. NECK: Trachea midline. No JVD. CARDIOVASCULAR: Regular rate and rhythm. No murmur appreciated. RESPIRATORY: No accessory muscle use. Clear to auscultation. Breath sounds equal bilaterally. GASTROINTESTINAL: Abdomen soft, non-tender, nondistended. Hepatic and splenic margins not palpable. MUSCULOSKELETAL: No obvious deformities. No clubbing. No cyanosis. No edema. No CVA tenderness NEUROLOGICAL: Awake and alert. No obvious cranial nerve deficits. Motor grossly within normal limits. Normal speech. PSYCHIATRIC: Appropriate mood and affect; insight and judgment normal. Data Data Last Documented VS Vital Signs Date Time Temp Pulse Resp B/P (MAP) Pulse Ox O2 Delivery O2 Flow Rate FiO2 10/25/17 21:21 68 20 126/82 (97) 99 10/25/17 17:10 Room Air 10/25/17 15:39 98.1 Orders Orders Complete Blood Count With Diff (10/25/17 15:42) Comprehensive Metabolic Panel (10/25/17 15:42) Prothrombin Time / Inr (Pt) (10/25/17 15:42) Act Partial Throm Time (Ptt) (10/25/17 15:42) Urinalysis - C+S If Indicated (10/25/17 15:42) Urine Culture (10/25/17 16:16) ^ Saline Lock (10/25/17 17:13) Cta Thor Abd Aorta W Iv C W3d (10/25/17 ) Nitrofurantoin Monohyd Macrocr (Macrobid (10/25/17 17:15) Morphine Inj (Morphine Inj) (10/25/17 17:15) Sodium Chlor 0.9% 1000 Ml Inj (Ns 1000 M (10/25/17 17:15) Ondansetron Inj (Zofran Inj) (10/25/17 17:15) Potassium Chloride (Kcl) (10/25/17 17:30) Iohexol 350 Inj (Omnipaque 350 Inj) (10/25/17 19:39) Ed Discharge Order (10/25/17 21:09) Labs Laboratory Tests Test 10/25/17 16:16 White Blood Count 8.6 TH/MM3 Red Blood Count 4.28 MIL/MM3 Hemoglobin 12.1 GM/DL Hematocrit 35.7 % Mean Corpuscular Volume 83.4 FL Mean Corpuscular Hemoglobin 28.3 PG Mean Corpuscular Hemoglobin Concent 34.0 % Red Cell Distribution Width 15.2 % Platelet Count 264 TH/MM3 Mean Platelet Volume 7.9 FL Neutrophils (%) (Auto) 56.1 % Lymphocytes (%) (Auto) 32.8 % Monocytes (%) (Auto) 7.0 % Eosinophils (%) (Auto) 3.4 % Basophils (%) (Auto) 0.7 % Neutrophils # (Auto) 4.8 TH/MM3 Lymphocytes # (Auto) 2.8 TH/MM3 Monocytes # (Auto) 0.6 TH/MM3 Eosinophils # (Auto) 0.3 TH/MM3 Basophils # (Auto) 0.1 TH/MM3 CBC Comment DIFF FINAL Differential Comment Prothrombin Time 14.8 SEC Prothromb Time International Ratio 1.5 RATIO Activated Partial Thromboplast Time 30.6 SEC Urine Color YELLOW Urine Turbidity HAZY Urine pH 5.5 Urine Specific [place] 1.037 Urine Protein 30 mg/dL Urine Glucose (UA) NEG mg/dL Urine Ketones TRACE mg/dL Urine Occult Blood NEG Urine Nitrite NEG Urine Bilirubin NEG Urine Urobilinogen 4.0 MG/DL Urine Leukocyte Esterase SMALL Urine RBC 4 /hpf Urine WBC 13 /hpf Urine Squamous Epithelial Cells 3 /hpf Urine Bacteria OCC /hpf Urine Mucus MANY /lpf Microscopic Urinalysis Comment CULTURE INDICATED Blood Urea Nitrogen 17 MG/DL Creatinine 1.52 MG/DL Random Glucose 101 MG/DL Total Protein 8.3 GM/DL Albumin 3.7 GM/DL Calcium Level 9.0 MG/DL Alkaline Phosphatase 89 U/L Aspartate Amino Transf (AST/SGOT) 27 U/L Alanine Aminotransferase (ALT/SGPT) 24 U/L Total Bilirubin 0.4 MG/DL Sodium Level 144 MEQ/L Potassium Level 3.2 MEQ/L Chloride Level 109 MEQ/L Carbon Dioxide Level 30.9 MEQ/L Anion Gap 4 MEQ/L Estimat Glomerular Filtration Rate 60 ML/MIN MDM Medical Decision Making Medical Screen Exam Complete: Yes Emergency Medical Condition: Yes Medical Record Reviewed: Yes Differential Diagnosis Retroperitoneal hematoma, pyelonephritis, UTI, muscular skeletal pain Narrative Course 7:14 PM blood test results are back and hemoglobin and hematocrit are stable compared to the last blood test more than a month ago. UA suggestive of UTI. I have given him p.o. Macrobid. Patient is getting IV fluid bolus. Awaiting for a CT thoracic aortogram. Patient was medicated for pain. 8:34 PM CAT scan report just came back. There is no mention of any retroperitoneal hematoma as per the radiologist. Postoperative changes have been described of the thoracic aorta. I will discuss this with the thoracic surgeon. Awaiting for him to call back. 8:50 PM as per the thoracic surgeon patient can be discharged home and follow- up with Dr. Cheatham this . I will convey this to the patient and discharge him home. Procedures EKG Prior to Arrival: No Physician Communication Physician Communication Dr. Snyder Diagnosis Primary Impression: Flank pain Additional Impression: UTI (urinary tract infection) Qualified Codes: N39.0 - Urinary tract infection, site not specified Referrals: Mimi Pickett MD 3 days Additional Instructions: Please follow-up with your thoracic surgeon Dr. Cheatham this . Take the medication as per the prescription direction. Return to the ER if condition worsens or any other new concerns. Med/Other Pt SpecificInfo: Prescription(s) given Scripts Nitrofurantoin Monohydrate Macrocrystals (Macrobid) 100 Mg Cap 100 MG PO BID for Infection for 14 Days, #28 CAP 0 Refills Prov: Rafia Yanez MD 10/25/17 Disposition: 01 DISCHARGE HOME Condition: Stable Rafia Yanez MD Oct 25, 2017 19:15
[2017-10-25] MEDS ORDERED: IOHEXOL 350 MG/ML 10 ML VIAL (for RAD DIAG) IVCONTRAST ONE (19:39)
--- NOTE | 2017-10-25 20:27 | RADRPT ---
EXAM DATE/TIME: 10/25/2017 19:36 [place] COMPARISON: CTA CARDIAC W/IV CONTRAST,CORONARY ARTERIES W/3D, July 15, 2016, 9:19. CTA THORACIC ABDOMINAL AOR TA W 3D RECON, September 15, 2017, 14:44. INDICATIONS : Left back pain for two months post operative open heart. IV CONTRAST: 89 cc Omnipaque 350 (iohexol) IV RADIATION DOSE: 17.09 CTDIvol (mGy) MEDICAL HISTORY : Cardiovascular disease. SURGICAL HISTORY : Appendectomy. Heart valve replacement. ENCOUNTER: Initial ACUITY: 1 day PAIN SCALE: 4/10 LOCATION: Left back TECHNIQUE: Volumetric scanning was performed using a multi-row detector CT scanner. The data was post processed with a variety of visualization algorithms including full volume maximum intensity projection, multi -planar sliding thin slab reformation, curved planar reformation, and surface rendering techniques. Using automated exposure control and adjustment of the mA and/or kV according to patient size, radiat ion dose was kept as low as reasonably achievable to obtain optimal diagnostic quality images. DICOM format image data is available electronically for review and comparison. FINDINGS: LUNGS: There is no consolidation or pneumothorax. No concerning pulmonary nodule is visualized. No pleural fluid is present. MEDIASTINUM: No abnormally enlarged lymph nodes by CT criteria. No axillary or hilar abnormalities are identified. Aortic valve replacement. ABDOMEN: The liver and spleen are free of focal defects. The gallbladder and pancreas demonstrate no abnormali ty. The adrenal glands are normal. The kidneys demonstrate no evidence of solid renal mass or hydrone phrosis. No free fluid or abdominal masses are identified. No para-aortic adenopathy is seen. Diverti culosis of the colon. PELVIS: No evidence of free fluid or pelvic mass. No abnormally enlarged inguinal or retroperitoneal lymph no debbie are present. The bladder is unremarkable. THORACIC AORTA: Patient is status post graft of the ascending aorta. Aneurysmal sac is bigger on current study measur ing 6.9 x 7.0 cm. The lumen of the thoracic aorta is normal and patent and is unchanged from prior st udy. No extravasation of contrast within the aneurysmal sac. ABDOMINAL AORTA: The aorta is normal in caliber without aneurysm or dissection. The renal arteries are patent bilater ally. The proximal celiac and superior mesenteric arteries are patent and normal in diameter. PELVIC VESSELS: The internal iliac and external iliac vessels are patent without aneurysm or stenosis. CONCLUSION: 1. Postsurgical graft of the eighth and the aorta. Aneurysmal sac is more prominent on current study measuring 6.9 x 7.0 cm. The lumen of the descending aorta is normal and patent. 2. Cardiomegaly with aortic valve replacement. Martin Hines MD on October 25, 2017 at 20:19 Board Certified Radiologist. This report was verified electronically.
[2017-10-25] MEDS ORDERED: MACR100C2 PO (21:09)
[2017-10-25 21:21] VITALS: BP 126/82
== END 2017-10-25 21:30 | disposition home or self-care (01) ==
LOC: NEPD 15:29
DX: N39.0 Urinary tract infection, site not specified (principal); M54.9 Dorsalgia, unspecified; I10 Essential (primary) hypertension; Z79.01 Long term (current) use of anticoagulants; Z87.891 Personal history of nicotine dependence; Z95.2 Presence of prosthetic heart valve
CPT/HCPCS: 71275; 74174; 80053; 81001; 85025; 85610; 85730; 87086; 96361; 96374; 96375; 99284; J2270; J2405; J7030; Q9967

== ENCOUNTER 2017-12-05 07:55 | Observation (INO) | payer OTHER ==
[2017-12-05] VITALS (12 sets, daily range): BP systolic 116–154; BP diastolic 71–111; PULSE 64–91; RESP 16–24; TEMP 98.1–100.4; O2SAT 98–100
[~2017-12-05] VITALS: Ht 172.7 cm; Wt 120.0 kg
[~2017-12-05 07:55] MED LIST changes: +MACR100C2 PO
[2017-12-05] MEDS ORDERED: AMLO10TA2 PO (08:30)
[2017-12-05] MEDS ORDERED: SODIUM CHLORIDE 0.9% FLUSH 10 ML FLUSH IVF PRN (09:00)
[2017-12-05 09:12] LABS: AUTOMATED NEUTROPHIL # 8.6 TH/MM3 (1.8-7.7); BASOPHIL # 0.1 TH/MM3 (0-0.2); BASOPHIL % 0.5 % (0.0-2.0); EOSINOPHIL # 0.2 TH/MM3 (0-0.4); EOSINOPHIL % 1.6 % (0.0-4.0); HEMATOCRIT 34.6 % (39.0-51.0); HEMOGLOBIN 12.2 GM/DL (13.0-17.0); LYMPH % 15.3 % (9.0-44.0); LYMPHOCYTE # 1.8 TH/MM3 (1.0-4.8); MEAN CELL VOLUME 81.2 FL (80.0-100.0); MEAN CORPUSCULAR HEMOGLOBIN 28.7 PG (27.0-34.0); MEAN CORPUSCULAR HGB CONC 35.3 % (32.0-36.0); MEAN PLATELET VOLUME 8.2 FL (7.0-11.0); MONO % 7.8 % (0.0-8.0); MONOCYTE # 0.9 TH/MM3 (0-0.9); NEUT % 74.8 % (16.0-70.0); PLATELET COUNT 232 TH/MM3 (150-450); RED BLOOD COUNT 4.26 MIL/MM3 (4.50-5.90); RED CELL DISTRIBUTION WIDTH 15.6 % (11.6-17.2); WHITE BLOOD COUNT 11.6 TH/MM3 (4.0-11.0)
--- NOTE | 2017-12-05 09:15 | PD ---
HPI Chief Complaint: Chest Pain Time Seen by Provider: 08:10 Travel History International Travel<30 days: No Contact w/Intl Traveler<30days: No Traveled to known affect area: No History of Present Illness HPI Patient 47-year-old male presents emergency department for evaluation of chest pain heavy in the center of his chest associated with some mild nausea and shortness of breath. Patient states the last time this happened he was diagnosed with a heart attack. Patient is a significant history of aortic valve replacement and stenting to the ascending aorta from a ascending aortic aneurysm. This was done in August of this year by Dr. Merlyn Cheatham. Patient states symptoms f since yesterday, gradually worsening, in the center of his chest, associated signs symptoms in context as above PFSH Past Medical History Hx Anticoagulant Therapy: Yes (coumadin) Arthritis: No Anxiety: No Depression: No Heart Rhythm Problems: No Cancer: No Cardiac Catheterization: Yes Cardiovascular Problems: Yes High Cholesterol: Yes Chest Pain: Yes Congestive Heart Failure: No COPD: Yes Cerebrovascular Accident: Yes (2006, TIA) Diabetes: No Diminished Hearing: No Endocrine: No Genitourinary: No Hepatitis: No Hypertension: Yes Immune Disorder: No Musculoskeletal: Yes Neurologic: Yes Psychiatric: No Reproductive: No Respiratory: Yes Myocardial Infarction: Yes Pneumonia: Yes Thyroid Disease: No Past Surgical History Abdominal Surgery: Yes (appendectomy) AICD: No Appendectomy: Yes (1985) Cardiac Surgery: Yes (AAA REPAIR AND VALVE REPLACEMENT) Coronary Stent: Yes Ear Surgery: No Endocrine Surgery: No Eye Surgery: No Genitourinary Surgery: No Gynecologic Surgery: No Joint Replacement: No Oral Surgery: No Pacemaker: No Thoracic Surgery: No Other Surgery: Yes Social History Alcohol Use: Yes (RARE) Tobacco Use: No Substance Use: No Allergies-Medications (Allergen,Severity, Reaction): Coded Allergies: No Known Allergies (Verified Allergy, Unknown, 12/05/17) Reported Meds & Prescriptions Reported Meds & Active Scripts Active Aspirin 81 Mg Chew 81 Mg CHEW DAILY Lopressor (Metoprolol Tartrate) 50 Mg Tab 50 Mg PO BID Warfarin 3 Mg Tab 3 Mg PO DAILY@1600 Lipitor (Atorvastatin Calcium) 80 Mg Tab 80 Mg PO HS Reported Amlodipine (Amlodipine Besylate) 10 Mg Tab 10 Mg PO DAILY Review of Systems Except as stated in HPI: all other systems reviewed are Neg Physical Exam Narrative GENERAL: Well-developed morbidly obese male in no obvious distress SKIN: Focused skin assessment warm/dry. Well-healed midline sternotomy scar HEAD: Atraumatic. Normocephalic. EYES: Pupils equal and round. No scleral icterus. No injection or drainage. ENT: No nasal bleeding or discharge. Mucous membranes pink and moist. NECK: Trachea midline. No JVD. CARDIOVASCULAR: Regular rate and rhythm. No murmur appreciated. 6 out of 6 systolic click consistent with mechanical aortic valve replacement, no other murmurs gallops or rubs heard. 2+ bilateral equal pulses in all 4 extremities per RESPIRATORY: No accessory muscle use. Clear to auscultation. Breath sounds equal bilaterally. GASTROINTESTINAL: Abdomen soft, non-tender, nondistended. Hepatic and splenic margins not palpable. MUSCULOSKELETAL: No obvious deformities. No clubbing. No cyanosis. No edema. NEUROLOGICAL: Awake and alert. No obvious cranial nerve deficits. Motor grossly within normal limits. Normal speech. PSYCHIATRIC: Appropriate mood and affect; insight and judgment normal. Data Data Last Documented VS Vital Signs Date Time Temp Pulse Resp B/P (MAP) Pulse Ox O2 Delivery O2 Flow Rate FiO2 12/05/17 12:00 74 22 130/81 (97) 100 Nasal Cannula 2.00 12/05/17 08:01 98.1 Orders Orders Electrocardiogram (12/05/17 ) Ckmb (Isoenzyme) Profile (12/05/17 08:47) Complete Blood Count With Diff (12/05/17 08:47) Comprehensive Metabolic Panel (12/05/17 08:47) Magnesium (Mg) (12/05/17 08:47) Prothrombin Time / Inr (Pt) (12/05/17 08:47) Act Partial Throm Time (Ptt) (12/05/17 08:47) Troponin I (12/05/17 08:47) Chest, Single Ap (12/05/17 08:47) Ecg Monitoring (12/05/17 08:47) Iv Access Insert/Monitor (12/05/17 08:47) Oximetry (12/05/17 08:47) Oxygen Administration (12/05/17 08:47) Sodium Chloride 0.9% Flush (Ns Flush) (12/05/17 09:00) Cta Thor Abd Aorta W Iv C W3d (12/05/17 ) CKMB (12/05/17 08:25) CKMB% (12/05/17 08:25) Iohexol 350 Inj (Omnipaque 350 Inj) (12/05/17 10:48) Aspirin Chew (Aspirin Chew) (12/05/17 11:15) Nitroglycerin Sl (Nitrostat Sl) (12/05/17 11:15) Admit Order (Ed Use Only) (12/05/17 ) Labs Laboratory Tests Test 12/05/17 08:25 White Blood Count 11.6 TH/MM3 Red Blood Count 4.26 MIL/MM3 Hemoglobin 12.2 GM/DL Hematocrit 34.6 % Mean Corpuscular Volume 81.2 FL Mean Corpuscular Hemoglobin 28.7 PG Mean Corpuscular Hemoglobin Concent 35.3 % Red Cell Distribution Width 15.6 % Platelet Count 232 TH/MM3 Mean Platelet Volume 8.2 FL Neutrophils (%) (Auto) 74.8 % Lymphocytes (%) (Auto) 15.3 % Monocytes (%) (Auto) 7.8 % Eosinophils (%) (Auto) 1.6 % Basophils (%) (Auto) 0.5 % Neutrophils # (Auto) 8.6 TH/MM3 Lymphocytes # (Auto) 1.8 TH/MM3 Monocytes # (Auto) 0.9 TH/MM3 Eosinophils # (Auto) 0.2 TH/MM3 Basophils # (Auto) 0.1 TH/MM3 CBC Comment DIFF FINAL Differential Comment Prothrombin Time 11.4 SEC Prothromb Time International Ratio 1.1 RATIO Activated Partial Thromboplast Time 27.8 SEC Blood Urea Nitrogen 16 MG/DL Creatinine 1.33 MG/DL Random Glucose 92 MG/DL Total Protein 7.8 GM/DL Albumin 3.5 GM/DL Calcium Level 8.9 MG/DL Magnesium Level 1.9 MG/DL Alkaline Phosphatase 87 U/L Aspartate Amino Transf (AST/SGOT) 23 U/L Alanine Aminotransferase (ALT/SGPT) 29 U/L Total Bilirubin 0.4 MG/DL Sodium Level 141 MEQ/L Potassium Level 3.7 MEQ/L Chloride Level 108 MEQ/L Carbon Dioxide Level 26.0 MEQ/L Anion Gap 7 MEQ/L Estimat Glomerular Filtration Rate 70 ML/MIN Total Creatine Kinase 175 U/L Creatine Kinase MB 1.1 NG/ML Troponin I LESS THAN 0.02 NG/ML MDM Medical Decision Making Medical Screen Exam Complete: Yes Emergency Medical Condition: Yes Differential Diagnosis ACS, [place], PE unlikely, pneumonia, chest wall pain, aortic aneurysm. Narrative Course Patient room to the emergency department, CT aorta was performed which showed: Last 24 hours Impressions Chest X-Ray 12/05/17 0847 Signed Impressions: CONCLUSION: Cardiomegaly with previous heart valve replacement. Aorta CTA 12/05/17 0000 Signed Impressions: CONCLUSION: 1. Stable grafts of the ascending aorta. 2. Possible endograft leak along the posterior graft. 3. Small right pleural effusion and minimal right basilar density. 4. Aortic valve replacement. 5. Diverticulosis. The patient's endograft leak was discussed with Dr. Pollock was reviewed the images and states this is probably a chronic finding and no indication for emergent intervention. He recommends that if the patient needs ACS workup for admission to telemetry and he or 1 of his colleagues will see the patient in consultation. As discussed with the patient and he is agreeable. The patient was also discussed with Dr. Nikita Snyder. Patient ultimately discussed with Dr. Redding for admission and he is agreeable. Diagnosis Primary Impression: Chest pain Qualified Codes: R07.9 - Chest pain, unspecified Additional Impression: Subtherapeutic international normalized ratio (INR) Admitting Information Admitting Physician Requests: Observation Condition: Stable Mata Nye MD December 05, 2017 09:15
--- NOTE | 2017-12-05 09:16 | RADRPT ---
EXAM DATE: 12/05/2017 9:08 AM EDT AGE/SEX: 47 years / Male INDICATIONS: Chest pain for three days. CLINICAL DATA: This is the patient's initial encounter. Patient reports that signs and symptoms have been present for 3 days and indicates a pain score of 4/10. MEDICAL/SURGICAL HISTORY: . Cardiovascular disease. Cerebrovascular disease. Hypertension Fan nary artery stent. Appendectomy. heart valve replacement COMPARISON: [facility] [place], CHEST SINGLE AP, 09/15/2017. . FINDINGS: A single AP view of the chest demonstrates diminished lung volumes without evidence of mass, infiltra te or effusion. Cardiomegaly with evidence of previous median sternotomy and heart valve replacement . The cardiomediastinal contours are unremarkable. Osseous structures are intact. CONCLUSION: Cardiomegaly with previous heart valve replacement. Electronically signed by: Martin Hines MD 12/05/2017 9:15 AM EDT
[2017-12-05 09:29] LABS: INTERNATIONAL NORMALIZED RATIO 1.1 RATIO; PROTHROMBIN TIME - PATIENT 11.4 SEC (9.8-11.6)
[2017-12-05 09:30] LABS: ALBUMIN 3.5 GM/DL (3.4-5.0); ALT (GPT) 29 U/L (12-78); AST (GOT) 23 U/L (15-37); BLOOD UREA NITROGEN 16 MG/DL (7-18); CALCIUM 8.9 MG/DL (8.5-10.1); CHLORIDE 108 MEQ/L (98-107); CREATININE 1.33 MG/DL (0.60-1.30); GLOMERULAR FILTRATION RATE 70 ML/MIN (>89); GLUCOSE,RANDOM 92 MG/DL (74-106); MAGNESIUM 1.9 MG/DL (1.5-2.5); SODIUM (NA) 141 MEQ/L (136-145)
[2017-12-05 09:39] LABS: ALKALINE PHOSPHATASE 87 U/L (45-117); TOTAL BILIRUBIN ADULT 0.4 MG/DL (0.2-1.0); TOTAL PROTEIN 7.8 GM/DL (6.4-8.2); TROPONIN I LESS THAN 0.02 NG/ML (0.02-0.05)
[2017-12-05] MEDS ORDERED: IOHEXOL 350 MG/ML 10 ML VIAL (for RAD DIAG) IVCONTRAST ONE (10:48)
--- NOTE | 2017-12-05 11:01 | RADRPT ---
EXAM DATE: 12/05/2017 10:45 AM EDT AGE/SEX: 47 years / Male INDICATIONS: Chest pain for 3 days. CLINICAL DATA: This is the patient's initial encounter. Patient reports that signs and symptoms have been present for 3 days and indicates a pain score of 5/10. MEDICAL/SURGICAL HISTORY: Hypertension. Cardiovascular disease. Coronary artery stent. Aortic valv e RADIATION DOSE: 10.01 CTDI (mGy) COMPARISON: [facility] [place], CTA THORACIC ABDOMINAL AORTA W 3D RECON, 10/25/2017. . TECHNIQUE: Volumetric scanning was performed using a multi-row detector CT scanner during bolus infu kike of 99 ml Omnipaque 350 (iohexol) nonionic water-soluble contrast as a single exam dose. The da ta was post processed with a variety of visualization algorithms including full volume maximum intens ity projection, multi-planar sliding thin slab reformation, curved planar reformation, and surface re ndering techniques. Using automated exposure control and adjustment of the mA and/or kV according to patient size, radiation dose was kept as low as reasonably achievable to obtain optimal diagnostic q uality images. FINDINGS: Lungs: There is no consolidation or pneumothorax. No concerning pulmonary nodule is visualized. Sma ll right pleural effusion and right basilar density. Mediastinum: No abnormally enlarged lymph nodes by CT criteria. No axillary or hilar abnormalities a re identified. Abdomen: The liver and spleen are free of focal defects. The gallbladder and pancreas demonstrate no abnormality. The adrenal glands are normal. The kidneys demonstrate no evidence of solid renal mass or hydronephrosis. No free fluid or abdominal masses are identified. No para-aortic adenopathy is see n. Diverticulosis without diverticulitis. Pelvis: No evidence of free fluid or pelvic mass. No abnormally enlarged inguinal or retroperitoneal lymph nodes are present. The bladder is unremarkable. Thoracic Aorta: The patient is status post graft of the shiraz ascending aorta. Aneurysmal sac measures 5.9 x 5.7 cm and appears less prominent. No dissection. There is minimal contrast posterior to the a scending aorta could BE endograft leak.. Aortic valve replacement. Abdominal Aorta: The aorta is normal in caliber without aneurysm or dissection. There are some mild atherosclerotic changes. The renal arteries are patent bilaterally. The proximal celiac and superior mesenteric arteries are patent and normal in diameter. Pelvic Vessels: The internal iliac and external iliac vessels are patent without aneurysm or stenosi s. CONCLUSION: 1. Stable grafts of the ascending aorta. 2. Possible endograft leak along the posterior graft. 3. Small right pleural effusion and minimal right basilar density. 4. Aortic valve replacement. 5. Diverticulosis. Electronically signed by: Martin Hines MD 12/05/2017 10:59 AM EDT
[2017-12-05] MEDS ORDERED: ASPIRIN 81 MG CHEW TAB CHEW ONE (11:15)
[2017-12-05] MEDS ORDERED: NITROGLYCERIN 0.4 MG SL 25 TABS/BTL SL ONE (11:15)
[2017-12-05] MEDS ORDERED: SODIUM CHLOR 0.9% 1000 ML INJ 1,000 ML IV SCH (12:30)
[2017-12-05] MEDS ORDERED: SODIUM CHLORIDE 0.9% FLUSH 10 ML FLUSH IV FLUSH PRN (12:30)
[2017-12-05] MEDS ORDERED: NALOXONE HCL 0.4 MG/ML AMP IV PUSH PRN (12:30)
[2017-12-05] MEDS ORDERED: MAGNESIUM HYDROXIDE SUSP 30 ML CUP PO PRN (12:30)
[2017-12-05] MEDS ORDERED: ACETAMINOPHEN 325 MG TAB PO PRN (12:30)
--- NOTE | 2017-12-05 14:33 | PD.PN.STU ---
Subjective Remarks Mr. Cavanaugh is a 47yo black male, hx Aortic valve replacement (2017), presented to ER for "chest pressure" for the past 3 days. He reports it feels like an elephant is sitting on his chest and reminds him of the pressure he had during his last heart attack. He was playing with his kids Tuesday when he noticed the pressure. On Tuesday the pressure was worse and he spent the whole day in bed. He came to the ER because the symptoms continued to get worse. The pressure is there constantly but gets worse with movement. He tried baby aspirin but this did not relieve his symptoms. He reports intermittent episodes of feeling like his heart is trying to jump out of his chest. Currently he has a headache and has been having some dizziness with standing but no syncope. He denies nausea, vomiting, leg swelling, shortness of breath, or weight loss. He has not recently been ill. Has had night sweats for the past 3 months. 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 He is sedentary and spends his days on the couch. Since his heart surgery in August 2017 he has only experienced episodes where his heart beats fast. He was told that this was normal due to the surgery he had. Other than that there has been no complications and reports compliance with all his medications. Dr. Singh is his livestock speculator and Dr. Russ performed the heart surgery. PMH HTN HLD PSH Open heart surgery for aortic valve replacement/graft Appendectomy SHx Quit smoke 2-3 years ago, 2ppd for about 25years Drinks occasionally denies illicit drug use currently unemployed Objective Vitals Vital Signs Date Time Temp Pulse Resp B/P (MAP) Pulse Ox O2 Delivery O2 Flow Rate FiO2 12/05/17 12:48 98 Nasal Cannula 2.00 12/05/17 11:45 74 19 116/75 (89) 100 Nasal Cannula 2.00 12/05/17 11:40 20 12/05/17 11:30 78 22 118/71 (87) 100 Nasal Cannula 2.00 12/05/17 11:15 72 24 131/77 (95) 100 Nasal Cannula 2.00 12/05/17 10:00 68 22 136/85 (102) 100 Room Air 12/05/17 09:00 Nasal Cannula 2.00 12/05/17 09:00 64 17 133/82 (99) 99 Room Air 12/05/17 09:00 98 Room Air 12/05/17 08:30 68 20 145/87 (106) 98 Room Air 12/05/17 08:19 69 17 134/89 (104) 99 Room Air 149/87 (107) 12/05/17 08:01 98.1 74 16 154/90 (111) 98 I/O 12/04/17 12/04/17 12/04/17 12/05/17 12/05/17 12/05/17 07:00 15:00 23:00 07:00 15:00 23:00 Output Total 400 ml Balance -400 ml Output Urine Total 400 ml # Voids 1 Result Diagram: 12/05/17 0825 12/05/17 0825 Other Results Laboratory Tests Test 12/05/17 08:25 White Blood Count 11.6 TH/MM3 Red Blood Count 4.26 MIL/MM3 Hemoglobin 12.2 GM/DL Hematocrit 34.6 % Mean Corpuscular Volume 81.2 FL Mean Corpuscular Hemoglobin 28.7 PG Mean Corpuscular Hemoglobin Concent 35.3 % Red Cell Distribution Width 15.6 % Platelet Count 232 TH/MM3 Mean Platelet Volume 8.2 FL Neutrophils (%) (Auto) 74.8 % Lymphocytes (%) (Auto) 15.3 % Monocytes (%) (Auto) 7.8 % Eosinophils (%) (Auto) 1.6 % Basophils (%) (Auto) 0.5 % Neutrophils # (Auto) 8.6 TH/MM3 Lymphocytes # (Auto) 1.8 TH/MM3 Monocytes # (Auto) 0.9 TH/MM3 Eosinophils # (Auto) 0.2 TH/MM3 Basophils # (Auto) 0.1 TH/MM3 CBC Comment DIFF FINAL Differential Comment Prothrombin Time 11.4 SEC Prothromb Time International Ratio 1.1 RATIO Activated Partial Thromboplast Time 27.8 SEC Blood Urea Nitrogen 16 MG/DL Creatinine 1.33 MG/DL Random Glucose 92 MG/DL Total Protein 7.8 GM/DL Albumin 3.5 GM/DL Calcium Level 8.9 MG/DL Magnesium Level 1.9 MG/DL Alkaline Phosphatase 87 U/L Aspartate Amino Transf (AST/SGOT) 23 U/L Alanine Aminotransferase (ALT/SGPT) 29 U/L Total Bilirubin 0.4 MG/DL Sodium Level 141 MEQ/L Potassium Level 3.7 MEQ/L Chloride Level 108 MEQ/L Carbon Dioxide Level 26.0 MEQ/L Anion Gap 7 MEQ/L Estimat Glomerular Filtration Rate 70 ML/MIN Total Creatine Kinase 175 U/L Creatine Kinase MB 1.1 NG/ML Troponin I LESS THAN 0.02 NG/ML Imaging Last Impressions Chest X-Ray 12/05/17 0847 Signed Impressions: CONCLUSION: Cardiomegaly with previous heart valve replacement. Aorta CTA 12/05/17 0000 Signed Impressions: CONCLUSION: 1. Stable grafts of the ascending aorta. 2. Possible endograft leak along the posterior graft. 3. Small right pleural effusion and minimal right basilar density. 4. Aortic valve replacement. 5. Diverticulosis. Objective Remarks General - well developed, obese male, NAD. Skin - dry, intact. Scar on chest that looks healed, no signs of infection HEENT - equal reactive pupils, throat nonerythematous Pulmonary - clear equal breath sounds, no wheezes, rhonchi, or crackles Cardiovascular - Iron S1/S2, no murmur, no carotid bruits, no JVD, no lower leg edema. Abdominal - No pain with palpation Neuro - No focal deficits Psych - oriented x3, pleasant, cooperative Medications and IVs Current Medications Medications (Trade) Dose Ordered Sig/Rory Route PRN Reason Start Time Stop Time Status Last Admin Dose Admin Sodium Chloride 1,000 ml @ 75 mls/hr [id number] IV 12/05/17 12:30 12/05/17 12:46 Sodium Chloride (NS Flush) 2 ml UNSCH PRN IV FLUSH FLUSH AFTER USING IV ACCESS 12/05/17 12:30 Sodium Chloride (NS Flush) 2 ml BID IV FLUSH 12/05/17 21:00 Acetaminophen (Tylenol) 650 mg Q4H PRN PO TEMP > 100.4 12/05/17 12:30 Naloxone HCl (Narcan Inj) 0.4 mg UNSCH PRN IV PUSH SEE LABEL COMMENTS 12/05/17 12:30 Senna/Docusate Sodium (Latrice-Colace) 1 tab BID PO 12/05/17 21:00 Magnesium Hydroxide (Milk Of Magnesia Liq) 30 ml Q12H PRN PO Mild constipation 12/05/17 12:30 A/P Assessment and Plan Chest pain: acute acute coronary syndrome vs. PE vs. Valve leak vs infection vs. stable angina vs. GI (GERD/PUD) CTA - possible Valve leak, stable aortic grafts, small R. pleural effusion, no mention of PE CXR cardiomegaly Telemetry serial troponin Protonix? wean oxygen, monitor saturation Heart healthy diet CAD/Aortic Valve replacement INR 1.1 Consult Vascular surgery for possible valve leak Heparin drip to fully anticoagulate patient Anemia: Hx low hgb in prior visits repeat CBC and continue to monitor Hypertension: chronic, stable continue metoprolol and amlodipine COPD: chronic, stable Hx TIA Kelsie Good December 05, 2017 14:33
--- NOTE | 2017-12-05 16:10 | HHI.HP ---
[facility] Service Family Medicine Primary Care Physician Unknown Admission Diagnosis Chest Pain. Diagnoses: International Travel<30 Days: No Contact w/Intl Traveler<30days: No Known Affected Area: No History of Present Illness Patient is a 47-year-old male with past medical history of CVA 2, hypertension and status post thoracic aortic aneurysm repair and aortic root replacement with a 25 [employer] mechanical valve conduit who presents to the ED chest pain 3 days. The patient started feeling chest pain on Sunday 12/03 and the pain has continued and has not changed until now. He states at rest the pain is a 3 out of 10 but when he moves in any way it is severely painful. The pain is increased when he takes a large breath. He does not have any nausea or vomiting. The pain is central and located over the scar from his thoracotomy. He has had pain like this once before and it was when he had a stroke in 2010. He does not have any residual deficits; no weaknesses or paresthesias. Thoracic aortic aneurysm repair was done on 09/[address] Cheatham. On review of systems the patient states that he has been having chills at night since his surgery in August. He states he has not told his doctor this. He denies any headaches. He does have mild shortness of breath associated with the pain. He cannot tell if this is from asthma, severe pain, or otherwise. Denies any change in bowel movements recently. He denies any sick contacts. He denies any cough or congestion. Review of Systems Constitutional: DENIES: Weight loss, Chills Endocrine: DENIES: Polydipsia, Polyuria Eyes: DENIES: Eye pain, Vision loss Ears, nose, mouth, throat: DENIES: Nasal discharge, Oral lesions Respiratory: DENIES: Snoring Cardiovascular: DENIES: Syncope, Dyspnea on Exertion Gastrointestinal: DENIES: Diarrhea, Nausea Genitourinary: DENIES: Urinary frequency, Urinary incontinence Musculoskeletal: DENIES: Joint Swelling, Back pain Integumentary: DENIES: Nail changes, Pruritus Neurologic: DENIES: Localized weakness, Paresthesias, Seizures Past Family Social History Past Medical History HTN CVA x2, 2006, 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 Quit smoking cigarettes 05/2016, patient has a h/o 25 pack years. Alcohol: Socially Illicit drug use: Denies Physical Exam Vital Signs Vital Signs Date Time Temp Pulse Resp B/P (MAP) Pulse Ox O2 Delivery O2 Flow Rate FiO2 12/05/17 14:14 12/05/17 13:00 76 21 122/82 (95) 100 Nasal Cannula 2.00 12/05/17 12:48 98 Nasal Cannula 2.00 12/05/17 12:00 74 22 130/81 (97) 100 Nasal Cannula 2.00 12/05/17 11:45 74 19 116/75 (89) 100 Nasal Cannula 2.00 12/05/17 11:40 20 12/05/17 11:30 78 22 118/71 (87) 100 Nasal Cannula 2.00 12/05/17 11:15 72 24 131/77 (95) 100 Nasal Cannula 2.00 12/05/17 10:00 68 22 136/85 (102) 100 Room Air 12/05/17 09:00 Nasal Cannula 2.00 12/05/17 09:00 64 17 133/82 (99) 99 Room Air 12/05/17 09:00 98 Room Air 12/05/17 08:30 68 20 145/87 (106) 98 Room Air 12/05/17 08:19 69 17 134/89 (104) 99 Room Air 149/87 (107) 12/05/17 08:01 98.1 74 16 154/90 (111) 98 Physical Exam GENERAL: This is a well-nourished, well-developed patient, in no apparent distress. SKIN: No rashes, ecchymoses or lesions. Cool and dry. HEAD: Atraumatic. Normocephalic. No temporal or scalp tenderness. EYES: Pupils equal round and reactive. Extraocular motions intact. No scleral icterus. No injection or drainage. ENT: Nose without bleeding, purulent drainage or septal hematoma. Throat without erythema, tonsillar hypertrophy or exudate. Uvula midline. Airway patent. NECK: Trachea midline. No JVD or lymphadenopathy. Supple, nontender, no meningeal signs. CARDIOVASCULAR: There is no tenderness over incision and the pain cannot be re- created. Regular rate and rhythm without murmurs, gallops, or rubs. RESPIRATORY: Clear to auscultation. Breath sounds equal bilaterally. No wheezes , rales, or rhonchi. GASTROINTESTINAL: Abdomen soft, non-tender, nondistended. No hepato-splenomegaly , or palpable masses. No guarding. MUSCULOSKELETAL: Extremities without clubbing, cyanosis, or edema. No joint tenderness, effusion, or edema noted. No calf tenderness. Negative Homans sign bilaterally. NEUROLOGICAL: Awake and alert. Cranial nerves II through XII intact. Motor and sensory grossly within normal limits. Five out of 5 muscle strength in all muscle groups. Normal speech. Laboratory Laboratory Tests Test 12/05/17 08:25 White Blood Count 11.6 Red Blood Count 4.26 Hemoglobin 12.2 Hematocrit 34.6 Mean Corpuscular Volume 81.2 Mean Corpuscular Hemoglobin 28.7 Mean Corpuscular Hemoglobin Concent 35.3 Red Cell Distribution Width 15.6 Platelet Count 232 Mean Platelet Volume 8.2 Neutrophils (%) (Auto) 74.8 Lymphocytes (%) (Auto) 15.3 Monocytes (%) (Auto) 7.8 Eosinophils (%) (Auto) 1.6 Basophils (%) (Auto) 0.5 Neutrophils # (Auto) 8.6 Lymphocytes # (Auto) 1.8 Monocytes # (Auto) 0.9 Eosinophils # (Auto) 0.2 Basophils # (Auto) 0.1 CBC Comment DIFF FINAL Differential Comment Prothrombin Time 11.4 Prothromb Time International Ratio 1.1 Activated Partial Thromboplast Time 27.8 Blood Urea Nitrogen 16 Creatinine 1.33 Random Glucose 92 Total Protein 7.8 Albumin 3.5 Calcium Level 8.9 Magnesium Level 1.9 Alkaline Phosphatase 87 Aspartate Amino Transf (AST/SGOT) 23 Alanine Aminotransferase (ALT/SGPT) 29 Total Bilirubin 0.4 Sodium Level 141 Potassium Level 3.7 Chloride Level 108 Carbon Dioxide Level 26.0 Anion Gap 7 Estimat Glomerular Filtration Rate 70 Total Creatine Kinase 175 Creatine Kinase MB 1.1 Troponin I LESS THAN 0.02 Result Diagram: 12/05/1782412/05/17824 Caprini VTE Risk Assessment Caprini VTE Risk Assessment: No/Low Risk (score <= 1) Caprini Risk Assessment Model Point Value = 1 Point Value = 2 Point Value = 3 Point Value = 5 Age 41-60 Minor surgery BMI > 25 kg/m2 Swollen legs Varicose veins or History of unexplained or recurrent spontaneous Oral contraceptives or hormone replacement Sepsis (< 1 month) Serious lung disease, including pneumonia (< 1 month) Abnormal pulmonary function Acute myocardial infarction Congestive heart failure (< 1 month) History of inflammatory bowel disease Medical patient at bed rest Age 61-74 Arthroscopic surgery Major open surgery (> 45 min) Laparoscopic surgery (> 45 min) Malignancy Confined to bed (> 72 hours) Immobilizing plaster cast Central venous access Age >= 75 History of VTE Family history of VTE Factor V Leiden Prothrombin [id number] Lupus anticoagulant Anticardiolipin antibodies Elevated serum homocysteine Heparin-induced thrombocytopenia Other congenital or acquired thrombophilia Stroke (< 1 month) Elective arthroplasty Hip, pelvis, or leg fracture Acute spinal cord injury (< 1 month) Prophylaxis Regimen Total Risk Factor Score Risk Level Prophylaxis Regimen 0-1 Low Early ambulation 2 Moderate Order ONE of the following: *Sequential Compression Device (SCD) *Heparin 5000 units SQ BID 3-4 Higher Order ONE of the following medications: *Heparin 5000 units SQ TID *Enoxaparin/Lovenox 40 mg SQ daily (WT < 150 kg, CrCl > 30 mL/min) *Enoxaparin/Lovenox 30 mg SQ daily (WT < 150 kg, CrCl > 10-29 mL/min) *Enoxaparin/Lovenox 30 mg SQ BID (WT < 150 kg, CrCl > 30 mL/min) AND/OR *Sequential Compression Device (SCD) 5 or more Highest Order ONE of the following medications: *Heparin 5000 units SQ TID (Preferred with Epidurals) *Enoxaparin/Lovenox 40 mg SQ daily (WT < 150 kg, CrCl > 30 mL/min) *Enoxaparin/Lovenox 30 mg SQ daily (WT < 150 kg, CrCl > 10-29 mL/min) *Enoxaparin/Lovenox 30 mg SQ BID (WT < 150 kg, CrCl > 30 mL/min) AND *Sequential Compression Device (SCD) Assessment and Plan Assessment and Plan Patient is a 47-year-old male with past medical history of CVA 2, hypertension and status post thoracic aortic aneurysm repair and aortic root replacement with a 25 [employer] mechanical valve conduit who presents to the ED chest pain 3 days. Code Status Full code Problem List: (1) History of aortic aneurysm repair ICD Codes: Z98.890 - Other specified postprocedural states; Z86.79 - Personal history of other diseases of the circulatory system Status: Chronic Plan: History of repair in August [address] Cheatham Cardiothoracic surgeon has been contacted , will be consulting in AM - Case discussed with sew on operator; pt is unlikely to go to surgery, start heparin CTA: Stable grafts of ascending aorta, possible endograft leak along posterior graft, aortic valve replacement (2) Chest pain ICD Codes: R07.9 - Chest pain, unspecified Plan: Pericarditis vs. FL vs. aortic abnormality vs. PE vs. GERD vs. Chostochondritis Vital signs stable R/O Pericarditis Pleuritic pain with low-grade fever Follow-up ESR, CRP CXR: Cardiomegaly, no previous chest x-rays for comparison CTA: Small right pleural effusion, no pericardial thickening, no pericardial effusion (discussed with radiologist) Added pantoprazole 20 mg daily Follow-up cardiothoracic surgery recommendations R/O Endocarditis Recurrent fever, recent valve replacement, subtherapeutic anticoagulation Start Vanc/Gent empirically w/ pharmacy consult f/u temps f/u blood cx R/O FL Chest pain not relieved by nitro - Trop negative x 2 - EKG negative x 1 - f/u troponins and EKGs R/O PE aortic CTA: negative for PE Echo 09/2017: WNL (3) Fever ICD Codes: R50.9 - Fever, unspecified Status: Acute Plan: Chronic nighttime fever and sweats per patient, no weight loss Associated with pericarditis versus endocarditis vs other infection vs. other systemic illness CTA negative for pericarditis, will not use high-dose NSAIDS at this time Follow-up flu Follow-up respiratory panel f/u Temps f/u UA f/u blood cx No obvious source and no abx given at this time Vanc & Gent w/ pharm consult (4) Subtherapeutic anticoagulation ICD Codes: Z51.81 - Encounter for therapeutic drug level monitoring; Z79.01 - loan interviewer mortgage (current) use of anticoagulants Status: Acute Plan: INR 1.1, with mechanical valve Goal 2.5-3.5 Risk factors for embolization: AVR, Afibb with RVR, subtherapeutic INR Patient has continued to take warfarin as instructed, no change in diet Case discussed with - Start Heparin drip (5) Hypertension ICD Codes: I10 - Essential (primary) hypertension Status: Chronic Plan: BP normal Continue metoprolol 50 mg twice daily Continue amlodipine 10 mg daily (6) History of stroke ICD Codes: Z86.73 - Personal history of transient ischemic attack (TIA), and cerebral infarction without residual deficits Plan: No signs of TIA or stroke at this time INR 1.1 Follow-up anticoagulation recommendations of cardiothoracic surgery (7) Elevated serum creatinine ICD Codes: R79.89 - Other specified abnormal findings of blood chemistry Status: Chronic Plan: Creat 1.33 Appears to be baseline per chart review Baseline 1.22-1.52 (8) fen/ppx Status: Chronic Plan: Fluids: PO fluids Electrolytes: Normal, follow-up in a.m. Nutrition: Regular diet, cleared by surgery GI prophylaxis: Pantoprazole daily DVT prophylaxis: SCDs, Heparin drip, warfarin and aspirin held Problem Qualifiers (1) Chest pain: Qualified Codes: R07.9 - Chest pain, unspecified Corie Sanchez MD R2 December 05, 2017 16:10
[2017-12-05] MEDS: PANTOPRAZOLE SOD 20 MG DELAYED RELEASE TAB PO SCH (17:51)
[2017-12-05] MEDS: ATORVASTATIN 40 MG TAB PO SCH (20:24)
[2017-12-05] MEDS: METOPROLOL TARTRATE 50 MG TAB PO SCH (20:24)
[2017-12-05] MEDS: DOCUSATE SODIUM 50 MG/SENNA 8.6 MG TAB PO SCH (20:24)
[2017-12-05] MEDS: SODIUM CHLORIDE 0.9% FLUSH 10 ML FLUSH IV FLUSH SCH (20:24)
[2017-12-05 22:35] LABS: MAGNESIUM 1.9 MG/DL (1.5-2.5)
[2017-12-05 22:44] LABS: TROPONIN I LESS THAN 0.02 NG/ML (0.02-0.05)
[2017-12-05] MEDS ORDERED: Gentamicin Consult Pharmacy 1 EA OTHER SCH (23:15)
[2017-12-05] MEDS ORDERED: Vancomycin Consult Pharmacy 1 EA OTHER SCH (23:15)
[2017-12-05] MEDS: IBUPROFEN 600 MG TAB PO SCH (23:29)
[2017-12-05] MEDS: HEPARIN-D5W 25,000 U/250 ML 250 ML IV PRN (23:32)
[2017-12-06] VITALS (12 sets, daily range): BP systolic 104–140; BP diastolic 56–101; PULSE 65–85; RESP 17–20; TEMP 98–99; O2SAT 96–100
[2017-12-06 00:52] LABS: HEMOGLOBIN 11.9 GM/DL (13.0-17.0); MEAN CELL VOLUME 80.9 FL (80.0-100.0); MEAN CORPUSCULAR HEMOGLOBIN 28.4 PG (27.0-34.0); MEAN CORPUSCULAR HGB CONC 35.1 % (32.0-36.0); PLATELET COUNT 213 TH/MM3 (150-450); RED CELL DISTRIBUTION WIDTH 15.2 % (11.6-17.2)
[2017-12-06] MEDS ORDERED: VANCOMYCIN 1,500 MG/NS 500 ML IV SCH ×2 (01:00)
[2017-12-06 01:03] LABS: INTERNATIONAL NORMALIZED RATIO 1.2 RATIO
[2017-12-06] MEDS ORDERED: GENTAMICIN IV SCH (03:00)
[2017-12-06] MEDS ORDERED: SODIUM CHLORIDE 0.9% IV SCH (03:00)
[2017-12-06] MEDS: IBUPROFEN 600 MG TAB PO SCH ×4 (04:31→23:38)
[2017-12-06 05:32] LABS: AUTOMATED NEUTROPHIL # 8.6 TH/MM3 (1.8-7.7); BASOPHIL % 0.3 % (0.0-2.0); EOSINOPHIL # 0.1 TH/MM3 (0-0.4); EOSINOPHIL % 1.1 % (0.0-4.0); HEMATOCRIT 34.9 % (39.0-51.0); HEMOGLOBIN 11.8 GM/DL (13.0-17.0); LYMPH % 21.2 % (9.0-44.0); LYMPHOCYTE # 2.7 TH/MM3 (1.0-4.8); MEAN CELL VOLUME 81.8 FL (80.0-100.0); MEAN CORPUSCULAR HEMOGLOBIN 27.7 PG (27.0-34.0); MEAN CORPUSCULAR HGB CONC 33.8 % (32.0-36.0); MEAN PLATELET VOLUME 8.2 FL (7.0-11.0); MONO % 8.7 % (0.0-8.0); MONOCYTE # 1.1 TH/MM3 (0-0.9); NEUT % 68.7 % (16.0-70.0); PLATELET COUNT 229 TH/MM3 (150-450); RED BLOOD COUNT 4.27 MIL/MM3 (4.50-5.90); RED CELL DISTRIBUTION WIDTH 16.1 % (11.6-17.2); WHITE BLOOD COUNT 12.5 TH/MM3 (4.0-11.0)
[2017-12-06 05:47] LABS: INTERNATIONAL NORMALIZED RATIO 1.2 RATIO
[2017-12-06 05:56] LABS: BICARBONATE 24.8 MEQ/L (21.0-32.0); CALCIUM 8.6 MG/DL (8.5-10.1); CREATININE 1.09 MG/DL (0.60-1.30)
[2017-12-06 05:57] LABS: CHOLESTEROL/ HDL RATIO 2.42 RATIO; HDL CHOLESTEROL 53.2 MG/DL (40.0-60.0)
[2017-12-06] MEDS: DOCUSATE SODIUM 50 MG/SENNA 8.6 MG TAB PO SCH ×2 (07:49→21:00)
[2017-12-06] MEDS: SODIUM CHLORIDE 0.9% FLUSH 10 ML FLUSH IV FLUSH SCH ×2 (07:49→22:18)
[2017-12-06] MEDS: METOPROLOL TARTRATE 50 MG TAB PO SCH ×2 (07:49→22:17)
[2017-12-06] MEDS: PANTOPRAZOLE SOD 20 MG DELAYED RELEASE TAB PO SCH (07:49)
--- NOTE | 2017-12-06 10:06 | PD.CAR.PN ---
CVT Progress Note Subjective/Hospital Course: No complaints Needs coumadin Objective: Vital Signs Date Time Temp Pulse Resp B/P (MAP) Pulse Ox O2 Delivery O2 Flow Rate FiO2 12/06/17 09:25 79 12/06/17 09:25 98 Nasal Cannula 2.00 12/06/17 08:08 100 Nasal Cannula 2.00 12/06/17 08:00 98.7 76 20 104/56 (72) 100 12/06/17 04:00 85 12/06/17 04:00 Nasal Cannula 2.00 12/06/17 04:00 98.9 73 19 140/101 (114) 96 12/06/17 00:00 74 12/06/17 00:00 Nasal Cannula 2.00 12/06/17 00:00 99.0 70 19 134/85 (101) 98 12/05/17 20:00 100.4 91 19 150/94 (112) 98 12/05/17 20:00 90 12/05/17 20:00 Nasal Cannula 2.00 12/05/17 14:14 12/05/17 13:00 76 21 122/82 (95) 100 Nasal Cannula 2.00 12/05/17 13:00 100.4 74 16 147/111 (123) 100 12/05/17 12:48 98 Nasal Cannula 2.00 12/05/17 12:00 74 22 130/81 (97) 100 Nasal Cannula 2.00 12/05/17 11:45 74 19 116/75 (89) 100 Nasal Cannula 2.00 12/05/17 11:40 20 12/05/17 11:30 78 22 118/71 (87) 100 Nasal Cannula 2.00 12/05/17 11:15 72 24 131/77 (95) 100 Nasal Cannula 2.00 Labs: Laboratory Tests Test 12/06/17 00:35 12/06/17 04:00 White Blood Count 12.0 TH/MM3 (4.0-11.0) 12.5 TH/MM3 (4.0-11.0) Red Blood Count 4.20 MIL/MM3 (4.50-5.90) 4.27 MIL/MM3 (4.50-5.90) Hemoglobin 11.9 GM/DL (13.0-17.0) 11.8 GM/DL (13.0-17.0) Hematocrit 34.0 % (39.0-51.0) 34.9 % (39.0-51.0) Mean Corpuscular Volume 80.9 FL (80.0-100.0) 81.8 FL (80.0-100.0) Mean Corpuscular Hemoglobin 28.4 PG (27.0-34.0) 27.7 PG (27.0-34.0) Mean Corpuscular Hemoglobin Concent 35.1 % (32.0-36.0) 33.8 % (32.0-36.0) Red Cell Distribution Width 15.2 % (11.6-17.2) 16.1 % (11.6-17.2) Platelet Count 213 TH/MM3 (150-450) 229 TH/MM3 (150-450) Mean Platelet Volume 8.0 FL (7.0-11.0) 8.2 FL (7.0-11.0) Prothrombin Time 12.0 SEC (9.8-11.6) 12.0 SEC (9.8-11.6) Prothromb Time International Ratio 1.2 RATIO 1.2 RATIO Activated Partial Thromboplast Time 34.3 SEC (24.3-30.1) 51.1 SEC (24.3-30.1) Neutrophils (%) (Auto) 68.7 % (16.0-70.0) Lymphocytes (%) (Auto) 21.2 % (9.0-44.0) Monocytes (%) (Auto) 8.7 % (0.0-8.0) Eosinophils (%) (Auto) 1.1 % (0.0-4.0) Basophils (%) (Auto) 0.3 % (0.0-2.0) Neutrophils # (Auto) 8.6 TH/MM3 (1.8-7.7) Lymphocytes # (Auto) 2.7 TH/MM3 (1.0-4.8) Monocytes # (Auto) 1.1 TH/MM3 (0-0.9) Eosinophils # (Auto) 0.1 TH/MM3 (0-0.4) Basophils # (Auto) 0.0 TH/MM3 (0-0.2) CBC Comment DIFF FINAL Differential Comment Blood Urea Nitrogen 13 MG/DL (7-18) Creatinine 1.09 MG/DL (0.60-1.30) Random Glucose 85 MG/DL (74-106) Calcium Level 8.6 MG/DL (8.5-10.1) Sodium Level 139 MEQ/L (136-145) Potassium Level 3.4 MEQ/L (3.5-5.1) Chloride Level 106 MEQ/L (98-107) Carbon Dioxide Level 24.8 MEQ/L (21.0-32.0) Anion Gap 8 MEQ/L (5-15) Estimat Glomerular Filtration Rate 89 ML/MIN (>89) Triglycerides Level 61 MG/DL (42-150) Cholesterol Level 129 MG/DL (120-200) LDL Cholesterol 64 MG/DL (0-99) HDL Cholesterol 53.2 MG/DL (40.0-60.0) Cholesterol/HDL Ratio 2.42 RATIO Result Diagram: 12/06/17 0400 12/06/17 0400 Imaging: Last Impressions Chest X-Ray 12/05/17 0847 Signed Impressions: CONCLUSION: Cardiomegaly with previous heart valve replacement. Aorta CTA 12/05/17 0000 Signed Impressions: CONCLUSION: 1. Stable grafts of the ascending aorta. 2. Possible endograft leak along the posterior graft. 3. Small right pleural effusion and minimal right basilar density. 4. Aortic valve replacement. 5. Diverticulosis. Plan: I reviewed the chest CTA and there is no evidence of leak or pseudoaneurysm. He needs coumadin for INR 2-2.5 and meticulous BP control. Will sign-off Mimi Pickett MD December 06, 2017 10:06
--- NOTE | 2017-12-06 11:17 | HHI.FPPN ---
Subjective Remarks Mr. Cavanaugh was afebrile with stable vital signs overnight. Patient reports that he is feeling better this morning. Patient reports that he had chest pain early this morning which resolved after receiving a pain medication [Ibuprofen 600mg per eEMR at 0431]. Patient also reports improvement in his shortness of breath. Patient states that prior to admission, he had constant chest pain which was worse with deep breathing and positionally affected. Patient did not report feeling sick or having fevers recently. No sick contacts. Patient denies any lower extremity swelling. No palpitations. Patient states that he has been having night sweats ever since cardiac surgery months prior but this has not recently changed. No coughing. No diarrhea. Patient provides supplemental history that he has not been taking Warfarin regularly for ~1+ mo after home health care stopped. (Erwin Agustin MD R3) Objective Vitals Vital Signs Date Time Temp Pulse Resp B/P (MAP) Pulse Ox O2 Delivery O2 Flow Rate FiO2 12/06/17 10:08 99 Nasal Cannula 2.00 12/06/17 09:25 79 12/06/17 09:25 98 Nasal Cannula 2.00 12/06/17 08:08 100 Nasal Cannula 2.00 12/06/17 08:00 98.7 76 20 104/56 (72) 100 12/06/17 04:00 85 12/06/17 04:00 Nasal Cannula 2.00 12/06/17 04:00 98.9 73 19 140/101 (114) 96 12/06/17 00:00 74 12/06/17 00:00 Nasal Cannula 2.00 12/06/17 00:00 99.0 70 19 134/85 (101) 98 12/05/17 20:00 100.4 91 19 150/94 (112) 98 12/05/17 20:00 90 12/05/17 20:00 Nasal Cannula 2.00 12/05/17 14:14 12/05/17 13:00 76 21 122/82 (95) 100 Nasal Cannula 2.00 12/05/17 13:00 100.4 74 16 147/111 (123) 100 12/05/17 12:48 98 Nasal Cannula 2.00 12/05/17 12:00 74 22 130/81 (97) 100 Nasal Cannula 2.00 12/05/17 11:45 74 19 116/75 (89) 100 Nasal Cannula 2.00 12/05/17 11:40 20 12/05/17 11:30 78 22 118/71 (87) 100 Nasal Cannula 2.00 I/O 12/05/17 12/05/17 12/05/17 12/06/17 12/06/17 12/06/17 07:00 15:00 23:00 07:00 15:00 23:00 Intake Total 346.25 ml Output Total 400 ml 900 ml Balance -400 ml -553.75 ml Intake Oral 120 ml IV Total 226.25 ml Output Urine Total 400 ml 900 ml # Voids 1 (Erwin Agustin MD R3) Result Diagram: 12/06/17 0400 12/06/17 0400 Imaging Last Impressions Chest X-Ray 12/05/17 0847 Signed Impressions: CONCLUSION: Cardiomegaly with previous heart valve replacement. Aorta CTA 12/05/17 0000 Signed Impressions: CONCLUSION: 1. Stable grafts of the ascending aorta. 2. Possible endograft leak along the posterior graft. 3. Small right pleural effusion and minimal right basilar density. 4. Aortic valve replacement. 5. Diverticulosis. Objective Remarks GENERAL: no acute distress. SKIN: No rashes or lesions. EYES: Extraocular motions grossly intact. CARDIOVASCULAR: Normal rate and rhythm; no murmurs. Patient without LE edema. Pain was not reproduced by laying on right side (where he previously experienced pain) or by leaning forward. No pain with deep inspiration Chest wall: No pain to palpation of chest wall RESPIRATORY: Clear to auscultation. Normal rate. No wheezes, rales, or rhonchi. GASTROINTESTINAL: Abdomen soft, non-tender, nondistended. MUSCULOSKELETAL: Grossly normal ROM and motor function. No calf tenderness. NEUROLOGICAL: Awake and alert. Cranial nerves grossly intact. Motor and sensory function grossly within normal limits (Erwin Agustin MD R3) A/P Assessment and Plan Patient is a 47-year-old male with past medical history of CVA 2, hypertension and status post thoracic aortic aneurysm repair and aortic root replacement with a 25 [employer] mechanical valve conduit who presents to the ED chest pain 3 days. Discharge Planning Will rule-out endocarditis and arrange anticoagulation prior to discharge (Erwin Agustin MD R3) Attending Attestation vMedical rounds with Dr Agustin this am Patient interviewed and examination performed Agree with contents of above note See Orders (Andrew Ingram MD) Problem List: (1) History of aortic aneurysm repair ICD Codes: Z98.890 - Other specified postprocedural states; Z86.79 - Personal history of other diseases of the circulatory system Status: Chronic Plan: Impression: History of repair in August [address] Cheatham Aorta CTA on admission- stable grafts of ascending aorta. Possible endograft leak along posterior graft. Small right pleural effusion and minimal right basilar density. Aortic valve replacement. Diverticulosis Per discussion between Dr. Sanchez and Dr. Snyder, patient started on Heparin drip -CV surgery consulted -Imaging reviewed, no evidence of leak or pseudoaneurysm -Needs Coumadin for IN 2-2.5 and meticulous BP control (2) Chest pain ICD Codes: R07.9 - Chest pain, unspecified Plan: Impression: Likely Pericarditis. Other differential of MA vs. aortic abnormality vs. PE vs. GERD vs. Costochondritis. Vital signs stable CXR: Cardiomegaly, no previous chest x-rays for comparison CTA: Small right pleural effusion, no pericardial thickening, no pericardial effusion (discussed with radiologist). No PE -ACS rule-out -Troponins wnl x3 -EKG x1 reportedly normal; other EKG not yet in EMR (will review) -CV surgery consulted -Due to possibility of endocarditis (chest pain, fever) -Blood cultures x2 pending -Patient empirically placed on Vancomycin/Gentamicin -Will check echocardiogram -Suspect pericarditis -Ibuprofen started after ACS rule-out -Continue to monitor VS, telemetry (3) Fever ICD Codes: R50.9 - Fever, unspecified Status: Acute Plan: Impression: Chronic nighttime fever and sweats per patient, no weight loss/ Associated with pericarditis versus endocarditis vs other infection vs. 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) use of anticoagulants Status: Acute Plan: INR 1.1, with mechanical valve Goal 2-2.5 per CV surgery -Continue Heparin drip -Will transition to therapeutic warfarin -Will discuss outpatient Warfarin f/u plans (5) Hypertension ICD Codes: I10 - Essential (primary) hypertension Status: Chronic Plan: Impression: Predominately normotensive -Continue metoprolol 50 mg twice daily -Continue amlodipine 10 mg daily (6) History of stroke ICD Codes: Z86.73 - Personal history of transient ischemic attack (TIA), and cerebral infarction without residual deficits Plan: No signs of TIA or stroke at this time INR 1.1 Follow-up anticoagulation recommendations of cardiothoracic surgery -Will maintain BP control -WIll transition from heparin to therapeutic Warfarin (7) Elevated serum creatinine ICD Codes: R79.89 - Other specified abnormal findings of blood chemistry Status: Resolved Plan: Impression: Creat 1.33 on admission -> 1.09 -Continue IV NS 75 ml/hr -Monitor during hospitalization (8) fen/ppx Status: Chronic Plan: Fluids: PO fluids Electrolytes: Normal, follow-up in a.m. Nutrition: Regular diet GI prophylaxis: Pantoprazole daily DVT prophylaxis: SCDs, Heparin drip (Erwin Agustin MD R3) Problem Qualifiers (1) Chest pain: Qualified Codes: R07.9 - Chest pain, unspecified (2) Hypertension: Qualified Codes: I10 - Essential (primary) hypertension Erwin Agustin MD R3 December 06, 2017 11:17 Andrew Ingram MD December 06, 2017 18:31
[2017-12-06 11:53] LABS: FERRITIN 200 NG/ML (26-388)
[2017-12-06] MEDS ORDERED: VANCOMYCIN INJ 2,000 MG in SODIUM CHLORID 0.9% 500 ML INJ 500 ML IV SCH (12:00)
[2017-12-06] MEDS ORDERED: POTASSIUM CHLORIDE 10 MEQ CONTROLLED RELEASE TAB PO ONE (13:00)
[2017-12-06] MEDS: HEPARIN-D5W 25,000 U/250 ML 250 ML IV PRN (13:16)
[2017-12-06] MEDS: ASPIRIN EC 81 MG TABEC PO SCH (13:18)
--- NOTE | 2017-12-06 14:02 | EKG ---
Date Performed: 12/05/2017 Time Performed: 08:16:19 PTAGE: 47 years EKG: Sinus rhythm BORDERLINE LEFT AXIS DEVIATION POSSIBLE RIGHT VENTRICULAR CONDUCTION DELAY VOLTAGE CRITERIA FOR LVH NONSPECIFIC T-WAVE ABNORMALITY ABNORMAL ECG PREVIOUS TRACING : 09/16/2017 01.46 Since the previous tracing, no significant change noted DOCTOR: Juan Carlos Evans Interpretating Date/Time 12/06/2017 14:00:58
--- NOTE | 2017-12-06 14:17 | EKG ---
Date Performed: 12/05/2017 Time Performed: 19:11:29 PTAGE: 47 years EKG: Sinus rhythm MARKED LEFT AXIS DEVIATION POSSIBLE RIGHT VENTRICULAR CONDUCTION DELAY LEFT VENTRICULAR HYPERTROPHY AND ST-T CHANGE ABNORMAL ECG PREVIOUS TRACING : 12/05/2017 08.16 Since the previous tracing, no significant change noted DOCTOR: Juan Carlos Evans Interpretating Date/Time 12/06/2017 14:08:46
[2017-12-06 16:11] LABS: HEMOGLOBIN A1C 5.3 % (4.3-6.0)
[2017-12-06] MEDS ORDERED: WARFARIN SOD 5 MG TAB PO SCH (17:00)
[2017-12-06] MEDS: VANCOMYCIN INJ 2,000 MG in SODIUM CHLORID 0.9% 500 ML INJ 500 ML IV SCH (17:42)
[2017-12-06] MEDS: WARFARIN SOD 5 MG TAB PO SCH (17:46)
[2017-12-06] MEDS: ATORVASTATIN 40 MG TAB PO SCH (22:18)
[2017-12-07] VITALS (16 sets, daily range): BP systolic 115–156; BP diastolic 73–113; PULSE 71–104; RESP 16–20; TEMP 98–99.5; O2SAT 97–100
[2017-12-07] MEDS: HEPARIN-D5W 25,000 U/250 ML 250 ML IV PRN ×2 (03:43→16:34)
[2017-12-07] MEDS: VANCOMYCIN INJ 2,000 MG in SODIUM CHLORID 0.9% 500 ML INJ 500 ML IV SCH ×2 (03:44→16:11)
[2017-12-07 05:33] LABS: AUTOMATED NEUTROPHIL # 8.8 TH/MM3 (1.8-7.7); BASOPHIL # 0.1 TH/MM3 (0-0.2); BASOPHIL % 0.8 % (0.0-2.0); EOSINOPHIL # 0.3 TH/MM3 (0-0.4); EOSINOPHIL % 2.4 % (0.0-4.0); HEMATOCRIT 32.9 % (39.0-51.0); LYMPH % 19.9 % (9.0-44.0); LYMPHOCYTE # 2.5 TH/MM3 (1.0-4.8); MEAN CELL VOLUME 82.1 FL (80.0-100.0); MEAN CORPUSCULAR HEMOGLOBIN 27.6 PG (27.0-34.0); MEAN CORPUSCULAR HGB CONC 33.6 % (32.0-36.0); MONO % 7.6 % (0.0-8.0); NEUT % 69.3 % (16.0-70.0); PLATELET COUNT 225 TH/MM3 (150-450); RED CELL DISTRIBUTION WIDTH 15.7 % (11.6-17.2); WHITE BLOOD COUNT 12.7 TH/MM3 (4.0-11.0)
[2017-12-07 05:55] LABS: INTERNATIONAL NORMALIZED RATIO 1.2 RATIO; PROTHROMBIN TIME - PATIENT 12.4 SEC (9.8-11.6)
[2017-12-07 06:00] LABS: RANDOM GENTAMICIN LESS THAN 0.2 MCG/ML
[2017-12-07] MEDS: IBUPROFEN 600 MG TAB PO SCH (06:05)
[2017-12-07 06:08] LABS: BICARBONATE 24.5 MEQ/L (21.0-32.0); BLOOD UREA NITROGEN 16 MG/DL (7-18); CALCIUM 8.6 MG/DL (8.5-10.1); CHLORIDE 108 MEQ/L (98-107); CREATININE 1.25 MG/DL (0.60-1.30); GLOMERULAR FILTRATION RATE 76 ML/MIN (>89); GLUCOSE,RANDOM 84 MG/DL (74-106); SODIUM (NA) 140 MEQ/L (136-145)
[2017-12-07] MEDS: METOPROLOL TARTRATE 50 MG TAB PO SCH ×2 (08:49→22:14)
[2017-12-07] MEDS: ASPIRIN EC 81 MG TABEC PO SCH (08:49)
[2017-12-07] MEDS: PANTOPRAZOLE SOD 20 MG DELAYED RELEASE TAB PO SCH (08:49)
[2017-12-07] MEDS: GENTAMICIN INJ 120 MG in SODIUM CHLORIDE 0.9% INJ 100 ML IV SCH ×2 (08:50→16:10)
[2017-12-07] MEDS: DOCUSATE SODIUM 50 MG/SENNA 8.6 MG TAB PO SCH ×2 (08:50→21:00)
[2017-12-07] MEDS: SODIUM CHLORIDE 0.9% FLUSH 10 ML FLUSH IV FLUSH SCH ×2 (08:50→22:15)
[2017-12-07] MEDS ORDERED: CELECOXIB 100 MG CAP PO SCH (12:00)
--- NOTE | 2017-12-07 12:21 | HHI.FPPN ---
Subjective Remarks Mr. Cavanaugh was afebrile with stable vital signs overnight. Patient reports that he had chest pain and associated shortness of breath last night; he took Ibuprofen again and did not notice immediate improvement. Patient went to sleep and awoke without pain. Patient currently denies any chest pain and feels that he is doing well. Patient reports that he was previously taking Warfarin daily but not at the times that were prescribed. He is agreeable to taking Lovenox at home to transition to Coumadin. (Erwin Agustin MD R3) Objective Vitals Vital Signs Date Time Temp Pulse Resp B/P (MAP) Pulse Ox O2 Delivery O2 Flow Rate FiO2 12/07/17 10:03 72 12/07/17 08:57 98 Nasal Cannula 2.00 12/07/17 04:00 71 12/07/17 04:00 98.4 71 17 115/73 (87) 97 12/07/17 00:11 98 Nasal Cannula 2.00 12/07/17 00:00 99.4 89 18 142/97 (112) 97 12/06/17 22:15 78 130/80 (97) 12/06/17 20:00 77 12/06/17 20:00 Nasal Cannula 2.00 12/06/17 20:00 98.3 79 17 131/81 (98) 98 12/06/17 17:16 98 Nasal Cannula 2.00 12/06/17 16:08 70 12/06/17 15:52 98.0 72 20 126/79 (95) 98 12/06/17 13:52 65 12/06/17 13:52 97 Room Air 2.00 I/O 12/06/17 12/06/17 12/06/17 12/07/17 12/07/17 12/07/17 07:00 15:00 23:00 07:00 15:00 23:00 Intake Total 346.25 ml 880 ml 890 ml Output Total 900 ml 800 ml Balance -553.75 ml 880 ml 90 ml Intake Oral 120 ml 360 ml 120 ml IV Total 226.25 ml 520 ml 770 ml Output Urine Total 900 ml 800 ml # Voids 3 # Bowel Movements 1 0 (Erwin Agustin MD R3) Result Diagram: 12/07/17 0509 12/07/17 0509 Imaging Last Impressions Chest X-Ray 12/05/17 0847 Signed Impressions: CONCLUSION: Cardiomegaly with previous heart valve replacement. Aorta CTA 12/05/17 0000 Signed Impressions: CONCLUSION: 1. Stable grafts of the ascending aorta. 2. Possible endograft leak along the posterior graft. 3. Small right pleural effusion and minimal right basilar density. 4. Aortic valve replacement. 5. Diverticulosis. Objective Remarks GENERAL: no acute distress. SKIN: No rashes or lesions. EYES: Extraocular motions grossly intact. CARDIOVASCULAR: Normal rate and rhythm; no murmurs. Patient without LE edema. RESPIRATORY: Clear to auscultation. Normal rate. No wheezes, rales, or rhonchi. GASTROINTESTINAL: Abdomen soft, non-tender, nondistended. MUSCULOSKELETAL: Grossly normal ROM and motor function. No calf tenderness. NEUROLOGICAL: Awake and alert. Cranial nerves grossly intact. Motor and sensory function grossly within normal limits (Erwin Agustin MD R3) A/P Assessment and Plan Patient is a 47-year-old male with past medical history of CVA 2, hypertension and status post thoracic aortic aneurysm repair and aortic root replacement with a 25 [employer] mechanical valve conduit who presents to the ED chest pain 3 days. Discharge Planning Will rule-out endocarditis and arrange anticoagulation prior to discharge (Erwin Agustin MD R3) Attending Attestation Patient seen and examined with Dr Agustin EMR reviewed Case discussed in detail Agree with contents of note and assessment See Orders (Andrew Ingram MD) Problem List: (1) History of aortic aneurysm repair ICD Codes: Z98.890 - Other specified postprocedural states; Z86.79 - Personal history of other diseases of the circulatory system Status: Chronic Plan: Impression: History of repair in August [address] Cheatham Aorta CTA on admission- stable grafts of ascending aorta. Possible endograft leak along posterior graft. Small right pleural effusion and minimal right basilar density. Aortic valve replacement. Diverticulosis Per discussion between Dr. Sanchez and Dr. Snyder, patient started on Heparin drip -CV surgery consulted -Imaging reviewed, no evidence of leak or pseudoaneurysm -Needs Coumadin for IN 2-2.5 and meticulous BP control (2) Chest pain ICD Codes: R07.9 - Chest pain, unspecified Plan: Impression: Likely Pericarditis. Other differential of MS vs. aortic abnormality vs. PE vs. GERD vs. Costochondritis. Vital signs stable CXR: Cardiomegaly, no previous chest x-rays for comparison CTA: Small right pleural effusion, no pericardial thickening, no pericardial effusion (discussed with radiologist). No PE -ACS rule-out -Troponins wnl x3 -EKG x1 reportedly normal; other EKG not yet in EMR (will review) -CV surgery consulted -Due to possibility of endocarditis (chest pain, fever) -Blood cultures x2 pending -Patient empirically placed on Vancomycin/Gentamicin -Will check echocardiogram -Suspect pericarditis -Ibuprofen started after ACS rule-out -Continue to monitor VS, telemetry (3) Fever ICD Codes: R50.9 - Fever, unspecified Status: Acute Plan: Impression: Chronic nighttime fever and sweats per patient, no weight loss/ Associated with pericarditis versus endocarditis vs other infection vs. other systemic illness. 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 Status: Acute Plan: INR 1.1 on admission, with mechanical valve Goal 2-2.5 per CV surgery -Continue Heparin drip -Will transition to therapeutic warfarin (start at 5mg daily) -Plan for outpatient transition with Lovenox (5) Hypertension ICD Codes: I10 - Essential (primary) hypertension Status: Chronic Plan: Impression: Predominately normotensive -Continue metoprolol 50 mg twice daily -Continue amlodipine 10 mg daily (6) History of stroke ICD Codes: Z86.73 - Personal history of transient ischemic attack (TIA), and cerebral infarction without residual deficits Plan: No signs of TIA or stroke at this time INR 1.1 Follow-up anticoagulation recommendations of cardiothoracic surgery -Will maintain BP control -WIll transition from heparin to therapeutic Warfarin (7) Elevated serum creatinine ICD Codes: R79.89 - Other specified abnormal findings of blood chemistry Status: Resolved Plan: Impression: Creat 1.33 on admission -> 1.09 -> 1.25 -Continue IV NS 75 ml/hr -Monitor during hospitalization (8) fen/ppx Status: Chronic Plan: Fluids: Continue IV NS at 75ml/hr Electrolytes: Normal, follow-up in a.m. Nutrition: Regular diet GI prophylaxis: Pantoprazole daily DVT prophylaxis: SCDs, Heparin drip (Erwin Agustin MD R3) Problem Qualifiers (1) Chest pain: Qualified Codes: R07.9 - Chest pain, unspecified (2) Hypertension: Qualified Codes: I10 - Essential (primary) hypertension Erwin Agustin MD R3 December 07, 2017 12:21 Andrew Ingram MD December 07, 2017 14:59
[2017-12-07] MEDS ORDERED: PHARMACY ORDERED LAB ONE (15:45)
[2017-12-07] MEDS: WARFARIN SOD 5 MG TAB PO SCH (16:29)
--- NOTE | 2017-12-07 16:48 | ECHRPT ---
Indication: Cardiomyopathy, unspecified CONCLUSIONS The left ventricular systolic function is normal with an estimated ejection fraction in the range of 55-60%. Wall thickness is measured at the upper limits of normal. Normal left ventricular size. The aortic valve prosthesis is normal to two-dimensional, color flow and Doppler interrogation. Aortic valve area is 1.1 cm. mean gradient = 15 mm hg There is trace tricuspid valve regurgitation. The estimated pulmonary arterial pressure is 29 mmHg. BP: 104 / 56 HR: 79 Rhythm: Sinus MEASUREMENTS (Male / Female) Normal Values Technical Quality:Good 2D ECHO LV Diastolic Diameter PLAX 5.9 cm 4.2 - 5.9 / 3.9 - 5.3 cm LV Systolic Diameter PLAX 4.5 cm IVS Diastolic Thickness 1.3 cm 0.6 - 1.0 / 0.6 - 0.9 cm LVPW Diastolic Thickness 1.3 cm 0.6 - 1.0 / 0.6 - 0.9 cm LV Relative Wall Thickness 0.4 LVOT Diameter 2.0 cm M-MODE Aortic Root Diameter MM 3.1 cm LA Systolic Diameter MM 4.2 cm LA Ao Ratio MM 1.4 AV Cusp Separation MM 2.1 cm DOPPLER AV Peak Velocity 237.4 cm/s AV Peak Gradient 22.5 mmHg AV Mean Gradient 12.7 mmHg AV Velocity Time Integral 37.2 cm LVOT Peak Velocity 83.9 cm/s LVOT Peak Gradient 2.8 mmHg AV Area Cont Eq pk 1.1 cm TR Peak Velocity 217.0 cm/s TR Peak Gradient 18.8 mmHg Right Atrial Pressure 10.0 mmHg Pulmonary Artery Systolic Pressu 28.8 mmHg Right Ventricular Systolic Press 28.8 mmHg PV Peak Velocity 129.0 cm/s PV Peak Gradient 6.7 mmHg FINDINGS LEFT VENTRICLE The left ventricular systolic function is normal with an estimated ejection fraction in the range of 55-60%. Wall thickness is measured at the upper limits of normal. Normal left ventricular size. RIGHT VENTRICLE Normal right ventricular size and systolic function. LEFT ATRIUM The left atrial size is normal. RIGHT ATRIUM The right atrial size is normal. ATRIAL SEPTUM Normal atrial septal thickness without atrial level shunting by limited color doppler interrogation. AORTA The aortic root and proximal ascending aorta are normal in size on limited imaging. MITRAL VALVE Structurally normal mitral valve. No mitral valve stenosis or regurgitation. AORTIC VALVE The aortic valve prosthesis is normal to two-dimensional, color flow and Doppler interrogation. Aortic valve area is 1.1 cm. TRICUSPID VALVE There is trace tricuspid valve regurgitation. The estimated pulmonary arterial pressure is 29 mmHg. PULMONARY VALVE The pulmonary valve is not well visualized. VESSELS The inferior vena cava is normal in size. PERICARDIUM No pericardial effusion. Natanael Cardenas MD, FACC, [facility] [place] (Electronically Signed) Final Date:07 Dec 2017 16:46
[2017-12-07] MEDS ORDERED: NITROGLYCERIN 0.4 MG SL 25 TABS/BTL SL ONE ×3 (17:10→17:11)
[2017-12-07] MEDS ORDERED: MORPHINE SULFATE 4 MG/ML INJ IM ONE (17:15)
[2017-12-07] MEDS ORDERED: NITROGLYCERIN 0.4 MG SL 25 TABS/BTL SL PRN (17:45)
[2017-12-07] MEDS ORDERED: MORPHINE SULFATE 4 MG/ML INJ IV PUSH PRN (17:45)
[2017-12-07] MEDS ORDERED: predniSONE 50 MG TAB PO ONE (17:45)
--- NOTE | 2017-12-07 18:25 | RADRPT ---
EXAM DATE: 12/07/2017 6:19 PM EDT AGE/SEX: 47 years / Male INDICATIONS: Chest pain. CLINICAL DATA: This is the patient's subsequent encounter. Patient reports that signs and symptoms h ave been present for 4 - 6 days and indicates a pain score of Nonresponsive. MEDICAL/SURGICAL HISTORY: . Cardiovascular disease. Cerebrovascular disease. Hypertension Coron bridgett artery stent. Appendectomy. CABG. COMPARISON: [facility] [place], CHEST SINGLE AP, 12/05/2017. . FINDINGS: A single AP view of the chest demonstrates the lungs to be symmetrically aerated without evidence of mass, infiltrate or effusion. The heart size is diffusely enlarged but stable compared to the prior study. There is evidence of previous cardiothoracic surgery.. Osseous structures are intact. CONCLUSION: No acute intrathoracic disease. Stable cardiomegaly. No significant changes. Electronically signed by: Chris Driscoll MD 12/07/2017 6:24 PM EDT
--- NOTE | 2017-12-07 19:02 | HHI.FPPN ---
Addendum to progress note ADDENDUM Reason for addendum: Additonal documentation Additional information Resident responded to page regarding chest pain ~1700; while in route to page this was converted to Halicat due to worsening pain. On evaluation, patient was being prepared for transport to CVICU; troponin had been drawn and EKG available for interpretation. Patient had been given 1-2 doses of Morphine 2mg IV and was given ~3 doses of nitroglycerin without improvement in pain. Subsequent interview/exam initiated prior to transport and completed after transport S: Patient reports having left sided chest pain that was associated with numbness in his left arm this afternoon; this started suddenly and was similar in nature to prior pain but much worse. Patient also reported concern that his symptoms were similar to the chest pain he experienced with prior CVA/TIA. Patient does not report other symptoms. No other extremity numbness/tingling/ weakness. At the time of interview after transport, patient states that his pain decreased significantly to a "4" and that he was feeling better O: VS- HR ~100, BP ~140's/90's. RR normal Gen: In distress; appeared in severe pain CV: RRR; click audible on S2 R: CTAB Neuro: Normal strength in upper extremities bilaterally with tuckpointer and raising arms. Normal sensation in upper and lower extremities. CN intact. Pupils normal/ symmetric. A/P: Chest pain -Records reviewed- Sudden onset, severe w/ radiation to LUE. Prior valvular replacement and aortic aneurysm repair per Dr. Pickett; imaging reviewed by CV surgery consult and no leak suspected. Prior ACS rule-out during hospitalization negative. ESR and CRP both elevated. Some transient fevers during hospitalization. Echo today with normal EF (55-60%) and ULN wall thickness; no valvular lesions or vegetations. Pericarditis initially suspected due to improvement with Ibuprofen but this did not improve with Celebrex. Imaging reviewed with Radiology- pleural effusion is small -Impression: Pericarditis vs some sort of aortic infectious complication vs ACS vs ? -Will repeat ACS rule-out -Trop negative- get 2nd in 6 hrs -EKG unchanged. some ST changes still present likely from VH- get 2nd in 6 hrs -CXR repeated- unchanged -Will add prednisone for pericarditis (60mg daily, 0.5mg/kg) -Will repeat inflammatory markers -Will consult cardiology -Patient on heparin drip for transition to Warfarin (mechanical valve) -Continue ASA, BP control -Continue Tele -has Morphine PRN available for pain -If additional chest pain occurs, will consider reconsulting CV surgery LUE numbness associated with chest pain Impression: Due to normal neuro exam and improvement with that of chest pain, I do not suspect this was any sort of CVA. Patient agrees -Will re-evaluate and continue neuro checks -Will have low threshold to obtain CT head with any neuro symptoms or continued numbness DEREK Huerta; Erwin Monroy Dr., MD R3 December 07, 2017 19:02
[2017-12-07] MEDS: ATORVASTATIN 40 MG TAB PO SCH (22:14)
[2017-12-08] VITALS (26 sets, daily range): BP systolic 128–141; BP diastolic 79–85; PULSE 64–88; RESP 16–22; TEMP 98–99.6; O2SAT 97–100
[2017-12-08] MEDS: GENTAMICIN INJ 120 MG in SODIUM CHLORIDE 0.9% INJ 100 ML IV SCH ×2 (00:06→09:47)
[2017-12-08] MEDS ORDERED: PHARMACY ORDERED LAB ONE ×4 (03:45→15:45)
[2017-12-08] MEDS ORDERED: VANCOMYCIN INJ 1,800 MG in SODIUM CHLORID 0.9% 500 ML INJ 500 ML IV SCH (04:00)
[2017-12-08 04:53] LABS: BASOPHIL % 0.1 % (0.0-2.0); HEMATOCRIT 33.1 % (39.0-51.0); HEMOGLOBIN 11.2 GM/DL (13.0-17.0); LYMPH % 6.1 % (9.0-44.0); LYMPHOCYTE # 0.7 TH/MM3 (1.0-4.8); MEAN CELL VOLUME 81.3 FL (80.0-100.0); MEAN CORPUSCULAR HEMOGLOBIN 27.5 PG (27.0-34.0); MEAN CORPUSCULAR HGB CONC 33.8 % (32.0-36.0); MEAN PLATELET VOLUME 7.9 FL (7.0-11.0); MONO % 3.3 % (0.0-8.0); MONOCYTE # 0.4 TH/MM3 (0-0.9); NEUT % 90.5 % (16.0-70.0); PLATELET COUNT 249 TH/MM3 (150-450); RED BLOOD COUNT 4.07 MIL/MM3 (4.50-5.90); RED CELL DISTRIBUTION WIDTH 15.7 % (11.6-17.2)
[2017-12-08 05:02] LABS: INTERNATIONAL NORMALIZED RATIO 1.3 RATIO; PROTHROMBIN TIME - PATIENT 13.1 SEC (9.8-11.6)
[2017-12-08 05:14] LABS: BICARBONATE 23.6 MEQ/L (21.0-32.0); BLOOD UREA NITROGEN 18 MG/DL (7-18); CHLORIDE 105 MEQ/L (98-107); CREATININE 1.33 MG/DL (0.60-1.30); GLOMERULAR FILTRATION RATE 70 ML/MIN (>89); GLUCOSE,RANDOM 136 MG/DL (74-106); SODIUM (NA) 139 MEQ/L (136-145)
[2017-12-08 05:17] LABS: TROPONIN I LESS THAN 0.02 NG/ML (0.02-0.05)
[2017-12-08] MEDS: HEPARIN-D5W 25,000 U/250 ML 250 ML IV PRN ×2 (05:34→21:17)
--- NOTE | 2017-12-08 08:15 | PD.CONS ---
HPI Service cardiology Consult Requested By Reason for Consult chest pain Primary Care Physician Unknown History of Present Illness 47 yo AAM with history of CVA x 2, HTN, and recent mechanical AVR with thoracic aortic root repair (08/[address] Pickett) and post-surgical afib who presented on 12/05/17 with chest pain. He describes "8/10" anterior chest pain that suddenly started and was worse with deep breaths and torso movements. Pain was progressively worsening and lasted all day long prompting him to come in for evaluation. CTA was read to have possible endograft leak; Dr. Pickett consulted and confirmed no leak. Chest pain appeared to have been controlled with NSAID but last night developed severe anterior chest pain 10/10 with numbness down L arm and associated SOB. Symptoms alleviated with nitro and morphine. Troponin levels x 3 were negative and EKG did not demonstrate any concerning ST segment or T wave changes. He is currently resting comfortably without chest pain or SOB. Recent echo demonstrates normal EF 55-60%. Patient states he has been compliant with warfarin since valve replacement surgery; INR is currently subtherapeutic @ 1.3. 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 Cheatham New onset Afibb with RVR in September 2017 Past Surgical History Appendectomy [address] [facility] [facility] AVR with aortic graft over 6cm aneurysm, August 28 () Reported Medications Reported Meds & Active Scripts Active Aspirin 81 Mg Chew 81 Mg CHEW DAILY Lopressor (Metoprolol Tartrate) 50 Mg Tab 50 Mg PO BID Warfarin 3 Mg Tab 3 Mg PO DAILY@1600 Lipitor (Atorvastatin Calcium) 80 Mg Tab 80 Mg PO HS Reported Amlodipine (Amlodipine Besylate) 10 Mg Tab 10 Mg PO DAILY Active Ordered Medications Current Medications Medications (Trade) Dose Ordered Sig/Rory Route Start Time Stop Time Status Last Admin (NS Flush) 2 ml UNSCH PRN IV FLUSH 12/05/17 12:30 (NS Flush) 2 ml BID IV FLUSH 12/05/17 21:00 12/07/17 22:15 (Tylenol) 650 mg Q4H PRN PO 12/05/17 12:30 (Narcan Inj) 0.4 mg UNSCH PRN IV PUSH 12/05/17 12:30 (Latrice-Colace) 1 tab BID PO 12/05/17 21:00 12/05/17 20:24 (Milk Of Magnesia Liq) 30 ml Q12H PRN PO 12/05/17 12:30 (Protonix) 20 mg DAILY PO 12/05/17 17:30 12/07/17 08:49 (Norvasc) 10 mg DAILY PO 12/06/17 09:00 12/07/17 08:49 (Lopressor) 50 mg BID PO 12/05/17 21:00 12/07/17 22:14 (Lipitor) 40 mg HS PO 12/05/17 21:00 12/07/17 22:14 Heparin Sodium/ Dextrose 250 ml @ 21.384 mls/ hr TITRATE PRN IV 12/05/17 23:00 12/08/17 05:34 Pharmacy Profile Note 0 ml @ 0 mls/hr UNSCH OTHER 12/05/17 23:15 Pharmacy Profile Note 0 ml @ 0 mls/hr UNSCH OTHER 12/05/17 23:15 Gentamicin Sulfate 120 mg/ Sodium Chloride 103 ml @ 200 mls/hr Q8H IV 12/07/17 08:00 12/08/17 00:06 ([facility] Ordered Lab Info) SPECIFIC LAB TO BE FADIA... ONCE ONCE .XX 12/08/17 09:00 12/08/17 09:01 (Ecotrin Ec) 81 mg DAILY PO 12/06/17 13:00 12/07/17 08:49 (Coumadin) 5 mg DAILY@1600 PO 12/06/17 16:00 12/07/17 16:29 (CeleBREX) 100 mg BID PO 12/07/17 12:00 Future Hold 12/07/17 12:16 (Nitrostat Sl) 0.4 mg Q5M PRN SL 12/07/17 17:45 (Morphine Inj) 2 mg Q30M PRN IV PUSH 12/07/17 17:45 Vancomycin HCl 1800 mg/Sodium Chloride 518 ml @ 250 mls/hr Q12H IV 12/08/17 04:00 12/08/17 04:39 ([facility] Ordered Lab Info) SPECIFIC LAB TO BE DRAWN:VANCO TROUGH DATE TO BE DRDiana. 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 Quit smoking cigarettes 05/2016, patient has a h/o 25 pack years. Alcohol: Socially Illicit drug use: Denies (Kelsie Trujillo) Physical Exam Vital Signs Vital Signs Date Time Temp Pulse Resp B/P (MAP) Pulse Ox O2 Delivery O2 Flow Rate FiO2 12/08/17 07:00 78 12/08/17 06:00 80 12/08/17 05:00 78 12/08/17 04:00 98.6 77 16 141/82 (101) 99 12/08/17 04:00 78 12/08/17 03:00 77 12/08/17 03:00 100 Nasal Cannula 1.00 12/08/17 02:00 77 12/08/17 01:00 78 12/08/17 00:00 98.5 79 16 128/79 (95) 100 12/08/17 00:00 88 12/07/17 23:00 102 12/07/17 23:00 99 Nasal Cannula 2.00 12/07/17 22:00 102 12/07/17 21:00 104 12/07/17 20:00 99 12/07/17 20:00 99.5 100 16 147/86 (106) 100 12/07/17 19:00 100 Nasal Cannula 2.00 12/07/17 19:00 100 12/07/17 18:00 95 12/07/17 17:44 95 19 144/92 (109) 98 12/07/17 17:44 98 Nasal Cannula 2.00 12/07/17 16:45 98.0 86 20 156/93 (114) 12/07/17 13:43 98 Nasal Cannula 21 12/07/17 13:38 77 12/07/17 12:00 98.5 75 16 122/87 (99) 99 12/07/17 10:03 72 12/07/17 08:57 98 Nasal Cannula 2.00 12/07/17 08:00 98.3 77 18 146/113 (124) 98 Physical Exam GENERAL: SKIN: Warm and dry. HEAD: Atraumatic. Normocephalic. EYES: Pupils equal and round. ENT: No nasal bleeding or discharge. NECK: Trachea midline. No JVD. CARDIOVASCULAR: Regular rate and rhythm. II/ systolic murmur RESPIRATORY: No accessory muscle use. Clear to auscultation. Breath sounds equal bilaterally. GASTROINTESTINAL: Abdomen soft, non-tender, nondistended. Hepatic and splenic margins not palpable. MUSCULOSKELETAL: Extremities without clubbing, cyanosis, or edema. No obvious deformities. NEUROLOGICAL: Awake and alert. No obvious cranial nerve deficits. . Normal speech. PSYCHIATRIC: Appropriate mood and affect; insight and judgment normal. Laboratory Laboratory Tests Test 12/07/17 16:00 12/07/17 20:50 12/07/17 22:06 12/08/17 04:27 Troponin I LESS THAN 0.02 LESS THAN 0.02 LESS THAN 0.02 Vancomycin Level Trough 17.2 Erythrocyte Sedimentation Rate 74 White Blood Count 11.0 Red Blood Count 4.07 Hemoglobin 11.2 Hematocrit 33.1 Mean Corpuscular Volume 81.3 Mean Corpuscular Hemoglobin 27.5 Mean Corpuscular Hemoglobin Concent 33.8 Red Cell Distribution Width 15.7 Platelet Count 249 Mean Platelet Volume 7.9 Neutrophils (%) (Auto) 90.5 Lymphocytes (%) (Auto) 6.1 Monocytes (%) (Auto) 3.3 Eosinophils (%) (Auto) 0.0 Basophils (%) (Auto) 0.1 Neutrophils # (Auto) 10.0 Lymphocytes # (Auto) 0.7 Monocytes # (Auto) 0.4 Eosinophils # (Auto) 0.0 Basophils # (Auto) 0.0 CBC Comment DIFF FINAL Differential Comment Prothrombin Time 13.1 Prothromb Time International Ratio 1.3 Activated Partial Thromboplast Time 88.5 Blood Urea Nitrogen 18 Creatinine 1.33 Random Glucose 136 Calcium Level 9.0 Sodium Level 139 Potassium Level 4.0 Chloride Level 105 Carbon Dioxide Level 23.6 Anion Gap 10 Estimat Glomerular Filtration Rate 70 Date/Time Source Procedure Growth Status 5/28/18 21:59 Blood Peripheral Aerobic Blood Culture - Preliminary NO GROWTH IN 2 DAYS Resulted 12/05/17 21:59 Blood Peripheral Anaerobic Blood Culture - Preliminary NO GROWTH IN 2 DAYS Resulted (Kelsie Trujillo) Result Diagram: 12/08/17 0427 12/08/17 0427 Imaging Last 48 hours Impressions Chest X-Ray 12/07/17 0000 Signed Impressions: CONCLUSION: No acute intrathoracic disease. Stable cardiomegaly. No significant changes. (Kelsie Trujillo) Assessment and Plan Problem List: (1) H/O aortic valve replacement ICD Codes: Z95.2 - Presence of prosthetic heart valve (2) History of aortic aneurysm repair ICD Codes: Z98.890 - Other specified postprocedural states; Z86.79 - Personal history of other diseases of the circulatory system Status: Chronic (3) Chest pain ICD Codes: R07.9 - Chest pain, unspecified Assessment and Plan 47 yo AAM with history of CVA x 2, HTN, and recent mechanical AVR with thoracic aortic root repair (08/[address] Pickett) and post-surgical afib who presented on 12/05/17 with chest pain. He describes "8/10" anterior chest pain that suddenly started and was worse with deep breaths and torso movements. Pain was progressively worsening and lasted all day long prompting him to come in for evaluation. CTA was read to have possible endograft leak; Dr. Pickett consulted and confirmed no leak. Chest pain appeared to have been controlled with NSAID but last night developed severe anterior chest pain 10/10 with numbness down L arm and associated SOB. Symptoms alleviated with nitro and morphine. Troponin levels x 3 were negative and EKG did not demonstrate any concerning ST segment or T wave changes. chest pain- patient had an incomplete cardiac catheterization before surgical valve/aneurysm repair earlier this year due to large size of aneurysm. Coronary arteries were reimplanted during surgery. Will assess with cardiac coronary CTA. If normal, source of chest pain is likely pleuritic. EF 55-60% AVR- mechanical. cont heparin and warfarin. INR goal 2.5-3.5, currently subtherapeutic. (Kelsie Trujillo) Assessment and Plan CTA aorta reviewed. Coronaries widely patent. no need for stress test NSAIDS will sign off call with further questions thank you (Melvin Ceballos MD) Problem Qualifiers (1) Chest pain: Qualified Codes: R07.9 - Chest pain, unspecified Kelsie Trujillo December 08, 2017 08:14 Melvin Ceballos MD December 08, 2017 13:08
[2017-12-08] MEDS: PANTOPRAZOLE SOD 20 MG DELAYED RELEASE TAB PO SCH (08:27)
[2017-12-08] MEDS: ASPIRIN EC 81 MG TABEC PO SCH (08:27)
[2017-12-08] MEDS: DOCUSATE SODIUM 50 MG/SENNA 8.6 MG TAB PO SCH ×2 (08:28→21:00)
[2017-12-08] MEDS: METOPROLOL TARTRATE 50 MG TAB PO SCH ×2 (08:28→21:04)
[2017-12-08] MEDS: SODIUM CHLORIDE 0.9% FLUSH 10 ML FLUSH IV FLUSH SCH ×2 (08:30→21:00)
--- NOTE | 2017-12-08 11:44 | HHI.FPPN ---
Subjective Remarks Mr. Cavanaugh was afebrile with stable vital signs overnight. Interval: remainder of ACS rule-out negative overnight. Patient states that since his chest pain yesterday evening, he has not had additional chest pain. No shortness of breath. Patient without abdominal pain. Normal bowel movements and urination. Patient's history of chest pain discussed. His first episode of chest pain was on admission. Left sided, sharp, radiating to L arm with L arm numbness. Associated with shortness of breath. No associated back pain. Patient states that he also had prior chest pain with cerebrovascular events resulting in right sided weakness which resolved in distant past. (Erwin Agustin MD R3) Objective Vitals Vital Signs Date Time Temp Pulse Resp B/P (MAP) Pulse Ox O2 Delivery O2 Flow Rate FiO2 12/08/17 10:00 80 12/08/17 09:00 99 Nasal Cannula 1.00 12/08/17 09:00 82 12/08/17 08:00 80 12/08/17 07:15 99 Nasal Cannula 1.00 12/08/17 07:15 99.6 78 22 130/85 (100) 99 12/08/17 07:00 78 12/08/17 06:00 80 12/08/17 05:00 78 12/08/17 04:00 98.6 77 16 141/82 (101) 99 12/08/17 04:00 78 12/08/17 03:00 77 12/08/17 03:00 100 Nasal Cannula 1.00 12/08/17 02:00 77 12/08/17 01:00 78 12/08/17 00:00 98.5 79 16 128/79 (95) 100 12/08/17 00:00 88 12/07/17 23:00 102 12/07/17 23:00 99 Nasal Cannula 2.00 12/07/17 22:00 102 12/07/17 21:00 104 12/07/17 20:00 99 12/07/17 20:00 99.5 100 16 147/86 (106) 100 12/07/17 19:00 100 Nasal Cannula 2.00 12/07/17 19:00 100 12/07/17 18:00 95 12/07/17 17:44 95 19 144/92 (109) 98 12/07/17 17:44 98 Nasal Cannula 2.00 12/07/17 16:45 98.0 86 20 156/93 (114) 12/07/17 13:43 98 Nasal Cannula 21 12/07/17 13:38 77 12/07/17 12:00 98.5 75 16 122/87 (99) 99 I/O 12/07/17 12/07/17 12/07/17 12/08/17 12/08/17 12/08/17 07:00 15:00 23:00 07:00 15:00 23:00 Intake Total 890 ml 240 ml 563 ml Output Total 800 ml 250 ml 750 ml Balance 90 ml -250 ml -510 ml 563 ml Intake Oral 120 ml 240 ml IV Total 770 ml 563 ml Output Urine Total 800 ml 250 ml 750 ml # Bowel Movements 0 0 (Erwin Agustin MD R3) Result Diagram: 12/08/17 0427 12/08/17 0427 Imaging Last Impressions Chest X-Ray 12/07/17 0000 Signed Impressions: CONCLUSION: No acute intrathoracic disease. Stable cardiomegaly. No significant changes. Aorta CTA 12/05/17 0000 Addendum Impressions: CONCLUSION: 1. Stable grafts of the ascending aorta. 2. Possible endograft leak along the posterior graft. 3. Small right pleural effusion and minimal right basilar density. 4. Aortic valve replacement. 5. Diverticulosis. Objective Remarks GENERAL: no acute distress. SKIN: No rashes or lesions. EYES: Extraocular motions grossly intact. CARDIOVASCULAR: Normal rate and rhythm; no murmurs. Patient without LE edema. RESPIRATORY: Clear to auscultation. Normal rate. No wheezes, rales, or rhonchi. GASTROINTESTINAL: Abdomen soft, non-tender, nondistended. MUSCULOSKELETAL: Grossly normal ROM and motor function. No calf tenderness. NEUROLOGICAL: Awake and alert. Cranial nerves grossly intact. Motor and sensory function grossly within normal limits (Erwin Agustin MD R3) A/P Assessment and Plan Patient is a 47-year-old male with past medical history of CVA 2, hypertension and status post thoracic aortic aneurysm repair and aortic root replacement with a 25 [employer] mechanical valve conduit who presented to the ED chest pain 3 days. (Erwin Agustin MD R3) Attending Attestation Patient examined independently and case discussed with resident physician I have read the above note and agree with the assessment/plan as discussed with me I was involved in all medical decision making for this patient Chris Stevenson MD (Chris Stevenson MD) Problem List: (1) Chest pain ICD Codes: R07.9 - Chest pain, unspecified Plan: Impression: Unclear etiology. Initial suspicion for pericarditis but worsening last night CXR: Cardiomegaly CTA: Stable grafts of ascending aorta. Possible posterior endograft leak. Small right pleural effusion. Aortic valve replacement. -ACS rule-out 12/07 -Troponins wnl -EKGs unchanged ESR- 61-> 74 -CV surgery consulted -no suggestion of leak -Cardiology consulted -Will assess Coronary CT since cath couldn't previously be completed -Due to possibility of endocarditis (chest pain, fever) -Blood cultures negative -Echo without valvular lesion -Will stop Vancomycin/Gentamicin -Suspect pericarditis -Will continue Prednisone 60mg daily for pericarditis -Continue to monitor VS, telemetry -Continue ASA, BP control (2) History of aortic aneurysm repair ICD Codes: Z98.890 - Other specified postprocedural states; Z86.79 - Personal history of other diseases of the circulatory system Status: Chronic Plan: Impression: History of repair in August [address] Cheatham Aorta CTA on admission- stable grafts of ascending aorta. Possible endograft leak along posterior graft. Small right pleural effusion and minimal right basilar density. Aortic valve replacement. Diverticulosis Per discussion between Dr. Sanchez and Dr. Snyder, patient started on Heparin drip -CV surgery consulted -Imaging reviewed, no evidence of leak or pseudoaneurysm -Needs Coumadin for IN 2-2.5 and meticulous BP control (3) Subtherapeutic anticoagulation ICD Codes: Z51.81 - Encounter for therapeutic drug level monitoring; Z79.01 - buttermaker (current) use of anticoagulants Status: Acute Plan: INR 1.1 on admission, with mechanical valve Goal 2-2.5 per CV surgery -Continue Heparin drip -Will transition to therapeutic warfarin (start at 5mg daily) -Plan for outpatient transition with Lovenox (4) Fever ICD Codes: R50.9 - Fever, unspecified Status: Acute Plan: Impression: Chronic nighttime fever and sweats per patient, no weight loss/ Associated with pericarditis versus endocarditis vs other infection vs. other systemic illness. No obvious source and no abx given at this time Labs/imaging: CTA negative for pericarditis Blood cultures negative x3 days ESR 61 CBC- mild leukocytosis; neutrophil predominant Echo without valve lesions -Will stop Vanc and gent (5) Hypertension ICD Codes: I10 - Essential (primary) hypertension Status: Chronic Plan: Impression: Predominately normotensive -Continue metoprolol 50 mg twice daily -Continue amlodipine 10 mg daily (6) History of stroke ICD Codes: Z86.73 - Personal history of transient ischemic attack (TIA), and cerebral infarction without residual deficits Plan: No signs of TIA or stroke at this time INR 1.1 Follow-up anticoagulation recommendations of cardiothoracic surgery -Will maintain BP control -WIll transition from heparin to therapeutic Warfarin (7) Elevated serum creatinine ICD Codes: R79.89 - Other specified abnormal findings of blood chemistry Status: Resolved Plan: Impression: Creat 1.33 on admission -> 1.09 -> 1.25 -Continue IV NS 75 ml/hr -Monitor during hospitalization (8) fen/ppx Status: Chronic Plan: Fluids: Continue IV NS at 75ml/hr Electrolytes: Normal, follow-up in a.m. Nutrition: Regular diet GI prophylaxis: Pantoprazole daily DVT prophylaxis: SCDs, Heparin drip (Erwin Agustin MD R3) Problem Qualifiers (1) Chest pain: Qualified Codes: R07.9 - Chest pain, unspecified (2) Hypertension: Qualified Codes: I10 - Essential (primary) hypertension Erwin Agustin MD R3 December 08, 2017 11:44 Chris Stevenson MD December 08, 2017 13:57
[2017-12-08] MEDS: predniSONE 50 MG TAB PO SCH (12:41)
--- NOTE | 2017-12-08 15:11 | EKG ---
Date Performed: 12/07/2017 Time Performed: 17:37:32 PTAGE: 47 years EKG: Sinus rhythm . Leftward axis Left ventricular hypertrophy Septal and lateral ST-T changes are probably due to vent ricular hypertrophy Abnormal ECG Since the PREVIOUS TRACING , no significant change noted PREVIOUS TRACIN12/05/2017 19.11 DOCTOR: Natanael Cardenas Interpretating Date/Time 12/08/2017 15:11:03
--- NOTE | 2017-12-08 15:11 | EKG ---
Date Performed: 12/07/2017 Time Performed: 21:54:14 PTAGE: 47 years EKG: Sinus rhythm Leftward axis Left ventricular hypertrophy Abnormal ECG Since the PREVIOUS TRACING , no significant change noted PREVIOUS TRACIN12/07/2017 17.37 DOCTOR: Natanael Cardenas Interpretating Date/Time 12/08/2017 15:11:14
--- NOTE | 2017-12-08 15:12 | EKG ---
Date Performed: 12/08/2017 Time Performed: 06:44:58 PTAGE: 47 years EKG: Sinus rhythm Leftward axis Left ventricular hypertrophy by voltage only Abnormal ECG Since the PREVIOUS TRACING , no significant change noted PREVIOUS TRACIN12/07/2017 21.54 DOCTOR: Natanael Cardenas Interpretating Date/Time 12/08/2017 15:11:32
[2017-12-08] MEDS: WARFARIN SOD 5 MG TAB PO SCH (15:49)
--- NOTE | 2017-12-08 16:11 | HHI.DCPOC ---
Discharge Care Plan Diagnosis: (1) Chest pain (2) Thoracic aortic aneurysm (3) S/P AVR Goals to Promote Your Health * To prevent worsening of your condition and complications * To maintain your health at the optimal level Directions to Meet Your Goals Take your medications as prescribed Follow your dietary instruction Follow activity as directed Keep your appointments as scheduled Take your immunizations and boosters as scheduled If your symptoms worsen call your PCP, if no PCP go to Urgent Care Center or Emergency Room Smoking is Dangerous to Your Health. Avoid second hand smoke Call the 24-hour hour crisis hotline for domestic abuse at Erwin Agustin MD R3 December 08, 2017 16:11
--- NOTE | 2017-12-08 16:16 | HHI.FF ---
Face to Face Verification Diagnosis: (1) s/p avr (2) Subtherapeutic anticoagulation (3) ascendign thoracic aortic aneurysm Home Health Nursing Order: Medical education Signs/symptoms of disease process Medication education-adverse effect Nursing assessment with vital signs I have seen patient Casimiro Cavanaugh on 12/08/17. My clinical findings support the need for the requested home health care services because: Med compliance is questionable I certify that my clinical findings support that this patient is homebound because: Need for psychosocial assistance Erwin Agustin MD R3 December 08, 2017 16:16
[2017-12-08] MEDS ORDERED: ENOX120P SQ (16:20)
[2017-12-08] MEDS: ATORVASTATIN 40 MG TAB PO SCH (21:04)
[2017-12-09] VITALS (15 sets, daily range): BP systolic 143–159; BP diastolic 80–86; PULSE 60–73; RESP 16–17; TEMP 97.7–98.2; O2SAT 92–100
[2017-12-09 04:24] LABS: AUTOMATED NEUTROPHIL # 11.9 TH/MM3 (1.8-7.7); BASOPHIL # 0.1 TH/MM3 (0-0.2); BASOPHIL % 0.6 % (0.0-2.0); HEMATOCRIT 32.4 % (39.0-51.0); HEMOGLOBIN 10.8 GM/DL (13.0-17.0); LYMPH % 6.2 % (9.0-44.0); LYMPHOCYTE # 0.8 TH/MM3 (1.0-4.8); MEAN CELL VOLUME 82.4 FL (80.0-100.0); MEAN CORPUSCULAR HEMOGLOBIN 27.6 PG (27.0-34.0); MEAN CORPUSCULAR HGB CONC 33.5 % (32.0-36.0); MONO % 3.1 % (0.0-8.0); MONOCYTE # 0.4 TH/MM3 (0-0.9); NEUT % 90.1 % (16.0-70.0); PLATELET COUNT 262 TH/MM3 (150-450); RED BLOOD COUNT 3.93 MIL/MM3 (4.50-5.90); RED CELL DISTRIBUTION WIDTH 15.7 % (11.6-17.2); WHITE BLOOD COUNT 13.2 TH/MM3 (4.0-11.0)
[2017-12-09 04:42] LABS: INTERNATIONAL NORMALIZED RATIO 1.5 RATIO; PROTHROMBIN TIME - PATIENT 15.5 SEC (9.8-11.6)
[2017-12-09 04:46] LABS: BICARBONATE 23.4 MEQ/L (21.0-32.0); CALCIUM 9.1 MG/DL (8.5-10.1); CREATININE 1.26 MG/DL (0.60-1.30)
[2017-12-09] MEDS ORDERED: LISINOPRIL 5 MG TAB PO SCH (09:00)
[2017-12-09] MEDS: DOCUSATE SODIUM 50 MG/SENNA 8.6 MG TAB PO SCH (09:00)
[2017-12-09] MEDS: predniSONE 50 MG TAB PO SCH (09:01)
[2017-12-09] MEDS: ASPIRIN EC 81 MG TABEC PO SCH (09:01)
[2017-12-09] MEDS: METOPROLOL TARTRATE 50 MG TAB PO SCH (09:01)
[2017-12-09] MEDS: SODIUM CHLORIDE 0.9% FLUSH 10 ML FLUSH IV FLUSH SCH (09:02)
[2017-12-09] MEDS: PANTOPRAZOLE SOD 20 MG DELAYED RELEASE TAB PO SCH (09:02)
--- NOTE | 2017-12-09 10:22 | HHI.FPPN ---
Subjective Remarks Mr. Cavanaugh was afebrile with mild hypertension (MAP in low 100's) overnight. Patient denies any additional chest pain overnight. No shortness of breath, abdominal pain, nausea/vomiting, abnormal urination, or abnormal bowel movements. Patient agreeable to follow-up with Dr. Singh next week and get INR monitoring through his office. Objective Vitals Vital Signs Date Time Temp Pulse Resp B/P (MAP) Pulse Ox O2 Delivery O2 Flow Rate FiO2 12/09/17 10:00 69 12/09/17 09:00 72 12/09/17 08:00 69 12/09/17 07:15 100 Room Air 12/09/17 07:15 98.0 73 17 144/81 (102) 100 12/09/17 07:00 63 12/09/17 06:00 65 12/09/17 05:00 97.7 66 16 147/81 (103) 92 12/09/17 05:00 68 12/09/17 04:00 68 12/09/17 03:41 98 Room Air 12/09/17 03:00 66 12/09/17 02:00 72 12/09/17 01:00 72 12/09/17 00:00 98.2 63 16 143/80 (101) 99 12/09/17 00:00 64 12/08/17 23:03 97 Room Air 12/08/17 23:00 67 12/08/17 22:00 64 12/08/17 21:05 98 1.00 12/08/17 21:00 72 12/08/17 20:00 98.2 70 16 133/79 (97) 98 12/08/17 20:00 98 Room Air 12/08/17 20:00 72 12/08/17 19:00 72 12/08/17 18:09 72 12/08/17 17:10 72 12/08/17 16:01 79 12/08/17 15:13 69 12/08/17 15:13 98 Room Air 12/08/17 15:13 98.0 76 18 133/80 (97) 98 12/08/17 14:16 70 12/08/17 13:18 72 12/08/17 12:01 67 12/08/17 11:55 98.4 77 18 134/83 (100) 97 12/08/17 11:55 78 12/08/17 11:55 97 Room Air I/O 12/08/17 12/08/17 12/08/17 12/09/17 12/09/17 12/09/17 07:00 15:00 23:00 07:00 15:00 23:00 Intake Total 490 ml 563 ml 850 ml 480 ml Output Total 750 ml 500 ml 700 ml Balance -260 ml 563 ml 350 ml -220 ml Intake Oral 240 ml 600 ml 480 ml IV Total 250 ml 563 ml 250 ml Output Urine Total 750 ml 500 ml 700 ml # Bowel Movements 0 1 0 Result Diagram: 12/09/17 0357 12/09/17 0357 Imaging Last Impressions Chest X-Ray 12/07/17 0000 Signed Impressions: CONCLUSION: No acute intrathoracic disease. Stable cardiomegaly. No significant changes. Aorta CTA 12/05/17 0000 Signed Impressions: CONCLUSION: 1. Stable grafts of the ascending aorta. 2. Possible endograft leak along the posterior graft. 3. Small right pleural effusion and minimal right basilar density. 4. Aortic valve replacement. 5. Diverticulosis. Objective Remarks GENERAL: no acute distress. SKIN: No rashes or lesions. EYES: Extraocular motions grossly intact. CARDIOVASCULAR: Normal rate and rhythm; no murmurs. Patient without LE edema. RESPIRATORY: Clear to auscultation. Normal rate. No wheezes to auscultation GASTROINTESTINAL: Abdomen soft, non-tender, nondistended. MUSCULOSKELETAL: Grossly normal ROM and motor function. No calf tenderness. NEUROLOGICAL: Awake and alert. Cranial nerves grossly intact. Motor and sensory function grossly within normal limits A/P Assessment and Plan Patient is a 47-year-old male with past medical history of CVA 2, hypertension and status post thoracic aortic aneurysm repair and aortic root replacement with a [address] [employer] mechanical valve conduit who presented to the ED chest pain 3 days: Discharge Planning Plan for discharge today Problem List: (1) Chest pain ICD Codes: R07.9 - Chest pain, unspecified Plan: Impression: Unclear etiology. Initial suspicion for pericarditis but worsening last night CXR: Cardiomegaly CTA: Stable grafts of ascending aorta. Possible posterior endograft leak. Small right pleural effusion. Aortic valve replacement. -ACS rule-out 12/07 -Troponins wnl -EKGs unchanged ESR- 61-> 74 -CV surgery consulted -no suggestion of leak -Cardiology consulted -Will assess Coronary CT since cath couldn't previously be completed -Due to possibility of endocarditis (chest pain, fever) -Blood cultures negative -Echo without valvular lesion -Stopped Vancomycin/Gentamicin -Suspect pericarditis -Will continue Prednisone 60mg daily for pericarditis -Continue to monitor VS, telemetry -Continue ASA, BP control (2) Subtherapeutic anticoagulation ICD Codes: Z51.81 - Encounter for therapeutic drug level monitoring; Z79.01 - manufacture specialist (current) use of anticoagulants Status: Acute Plan: -Will plan for discharge home on Lovenox 120mg BID with transition to Warfarin -Continue Warfarin 5mg daily -Repeat INR in 2 days at home -Home health if possible as patient doesn't feel comfortable with administering Lovenox Impression: INR 1.1 on admission, with mechanical valve Goal 2-2.5 per CV surgery 12/09: INR 1.5 (3) History of aortic aneurysm repair ICD Codes: Z98.890 - Other specified postprocedural states; Z86.79 - Personal history of other diseases of the circulatory system Status: Chronic Plan: Impression: History of repair in August [address] Cheatham Aorta CTA on admission- stable grafts of ascending aorta. Possible endograft leak along posterior graft. Small right pleural effusion and minimal right basilar density. Aortic valve replacement. Diverticulosis Per discussion between Dr. Sanchez and Dr. Snyder, patient started on Heparin drip -CV surgery consulted -Imaging reviewed, no evidence of leak or pseudoaneurysm -Needs Coumadin for IN 2-2.5 and meticulous BP control (4) Hypertension ICD Codes: I10 - Essential (primary) hypertension Status: Chronic Plan: Impression: Frequent mild hypertension during hospitalization -Continue metoprolol 50 mg twice daily -Continue amlodipine 10 mg daily -Planned addition of Lisinopril (mild CKD also); patient reports allergy -Discussed with patient, he will ask Dr. Singh regarding his preference for additional antihypertensive (5) Fever ICD Codes: R50.9 - Fever, unspecified Status: Resolved Plan: Impression: Chronic nighttime fever and sweats per patient, no weight loss/ Associated with pericarditis versus endocarditis vs other infection vs. other systemic illness. No obvious source and no abx given at this time Labs/imaging: CTA negative for pericarditis Blood cultures negative x3 days ESR 61 CBC- mild leukocytosis; neutrophil predominant Echo without valve lesions Vanc and gentamicin stopped (6) History of stroke ICD Codes: Z86.73 - Personal history of transient ischemic attack (TIA), and cerebral infarction without residual deficits Plan: No signs of TIA or stroke at this time INR 1.1 on admission Follow-up anticoagulation recommendations of cardiothoracic surgery -Will maintain BP control -WIll transition from heparin to therapeutic Warfarin (7) Elevated serum creatinine ICD Codes: R79.89 - Other specified abnormal findings of blood chemistry Status: Resolved Plan: Impression: Creat 1.33 on admission -> 1.09 -> 1.25->1.33-> 1.26. At baseline -Monito Crr during hospitalization (8) fen/ppx Status: Chronic Plan: Fluids: Continue IV NS at 75ml/hr Electrolytes: Normal, follow-up in a.m. Nutrition: Regular diet GI prophylaxis: Pantoprazole daily DVT prophylaxis: SCDs, Heparin drip Problem Qualifiers (1) Chest pain: Qualified Codes: R07.9 - Chest pain, unspecified (2) Hypertension: Qualified Codes: I10 - Essential (primary) hypertension Erwin Agustin MD R3 Dec 09, 2017 10:22
[2017-12-09] MEDS ORDERED: COUM5TAB PO (10:24)
[2017-12-09] MEDS ORDERED: ENOXAPARIN SODIUM 120 MG/0.8 ML SYRINGE SQ SCH (12:30)
[2017-12-09] MEDS ORDERED: ENOX120P SQ (13:16)
[2017-12-09] MEDS ORDERED: NAPR500T2 PO (13:25)
[2017-12-09] MEDS ORDERED: PRED50 PO (13:25)
[2017-12-09] MEDS ORDERED: MEDI220T PO (16:12)
== END 2017-12-09 14:26 | disposition home health service (06) ==
LOC: NEPC 07:55 → NEDA 12:30 → OBSVTOIN 12:32 → INTOOBSV 12:32 → N04B 14:41 → HCPC 12-07 17:43
PROVIDERS: ADMIT Family Medicine; ATTEND Family Medicine
DX: R07.89 Other chest pain (principal); I71.2 Thoracic aortic aneurysm, without rupture; D72.829 Elevated white blood cell count, unspecified; R50.9 Fever, unspecified; I13.10 Hypertensive heart and chronic kidney disease without heart failure, with stage 1 through stage 4 chronic kidney disease, or unspecified chronic kidney disease; N18.9 Chronic kidney disease, unspecified; J90 Pleural effusion, not elsewhere classified; I25.2 Old myocardial infarction; E78.00 Pure hypercholesterolemia, unspecified; J44.9 Chronic obstructive pulmonary disease, unspecified; R79.1 Abnormal coagulation profile; R79.89 Other specified abnormal findings of blood chemistry; K57.90 Diverticulosis of intestine, part unspecified, without perforation or abscess without bleeding; Z95.2 Presence of prosthetic heart valve; Z79.01 Long term (current) use of anticoagulants; Z86.79 Personal history of other diseases of the circulatory system; Z86.73 Personal history of transient ischemic attack (TIA), and cerebral infarction without residual deficits; Z79.899 Other long term (current) drug therapy; Z87.891 Personal history of nicotine dependence; Z82.49 Family history of ischemic heart disease and other diseases of the circulatory system; E66.01 Morbid (severe) obesity due to excess calories; Z79.82 Long term (current) use of aspirin
CPT/HCPCS: 71045; 71275; 74174; 76937; 80048; 80053; 80061; 80170; 80202; 82550; 82552; 82728; 83036; 83615; 83735; 83880; 84145; 84443; 84484; 85025; 85027; 85610; 85652; 85730; 86140; 87040; 93005; 93306; 96361; 96365; 96366; 96367; 96368; 96372; 96375; 96376; 99285; G0378; J1580; J1644; J1650; J3370; J7030; J7040; J7512; Q9967